=== PATIENT | male | born 1950 | race Hispanic/Latino ===

== ENCOUNTER → 2021-02-20 | Outpatient (CLI) | payer OTHER | END | disposition home or self-care (01) | LOC: RAH 13:51 | PROVIDERS: ATTEND Internal Medicine | DX: I08.0 Rheumatic disorders of both mitral and aortic valves (principal); E78.5 Hyperlipidemia, unspecified; E11.9 Type 2 diabetes mellitus without complications; R55 Syncope and collapse | CPT/HCPCS: 93306; 93356 ==

== ENCOUNTER → 2021-04-21 | Outpatient (CLI) | payer OTHER ==
[~2021-04-21] VITALS: Ht 167.6 cm; Wt 67.1 kg
[~2021-04-21] MED LIST: REGADENOSON 0.4 MG/5 ML PF SYG IVP SCH
== END | disposition home or self-care (01) ==
LOC: SHCH 08:17
PROVIDERS: ATTEND Internal Medicine
DX: I42.9 Cardiomyopathy, unspecified (principal); I45.10 Unspecified right bundle-branch block; R94.31 Abnormal electrocardiogram [ECG] [EKG]
CPT/HCPCS: 78452; 93017; 96374; A9500 ×2; J2785

== ENCOUNTER → 2021-05-25 | Outpatient (CLI) | payer OTHER | END | disposition home or self-care (01) | LOC: RAH 13:41 | PROVIDERS: ATTEND Family Medicine | DX: M47.812 Spondylosis without myelopathy or radiculopathy, cervical region (principal); M25.78 Osteophyte, vertebrae | CPT/HCPCS: 72141 ==

== ENCOUNTER → 2023-01-31 | Outpatient (CLI) | payer OTHER | END | disposition home or self-care (01) | LOC: SHCH 13:36 | PROVIDERS: ATTEND Internal Medicine | DX: I11.9 Hypertensive heart disease without heart failure (principal); I43 Cardiomyopathy in diseases classified elsewhere; E11.9 Type 2 diabetes mellitus without complications | CPT/HCPCS: 93306 ==

== ENCOUNTER → 2023-03-08 | Outpatient (CLI) | payer OTHER ==
[~2023-03-08] MED LIST changes: +ATOR40TA69 PO; +EMPA25TA PO; +FERR-72 PO; +METF-446 PO; +METO-408 PO; -REGADENOSON 0.4 MG/5 ML PF SYG IVP SCH; +SACU1TAB4 PO; +TROS20TA4 PO
== END | disposition home or self-care (01) ==
LOC: RAH 13:23
PROVIDERS: ATTEND Family Medicine
DX: R13.13 Dysphagia, pharyngeal phase (principal)
CPT/HCPCS: 74230; 92611

== ENCOUNTER 2023-03-16 07:20 | Day surgery (SDC) | payer OTHER ==
[2023-03-15 15:36] VITALS: BP 150/74; PULSE 59; RESP 17
[2023-03-15 15:39] LABS: BASOPHILS # (AUTO) 0.03 K/uL (0.00-0.20); BASOPHILS % (AUTO) 0.4 % (0.0-5.0); EOSINOPHILS # (AUTO) 0.19 K/uL (0.00-0.70); EOSINOPHILS % (AUTO) 2.6 % (0.0-8.0); HEMATOCRIT 40.3 % (42-54); IMMATURE GRANULOCYTE ABSOLUTE 0.02 K/uL (0-1); LYMPHOCYTES # (AUTO) 2.3 K/uL (1.0-4.8); LYMPHOCYTES % (AUTO) 31.8 % (21.0-51.0); MEAN CORPUSCULAR HEMOGLOBIN 32.3 pg (27.0-33.0); MEAN CORPUSCULAR HGB CONC 34.7 g/dL (32.0-36.0); MEAN CORPUSCULAR VOLUME 93.1 fL (79-99); MONOCYTES # (AUTO) 0.6 K/uL (0.1-1.0); MONOCYTES % (AUTO) 8.1 % (3.0-13.0); NEUTROPHILS # (AUTO) 4.1 K/uL (1.8-7.7); NEUTROPHILS % (AUTO) 56.8 % (40.0-77.0); PLATELET COUNT (AUTO) 164 K/uL (130-400); RED BLOOD CELL COUNT(AUTO) 4.33 MIL/uL (4.50-6.20); WHITE BLOOD COUNT (AUTO) 7.2 K/uL (4.8-10.8)
[2023-03-15 15:52] LABS: POTASSIUM 4.9 mmol/L (3.5-5.1)
[2023-03-15 15:59] LABS: INR < 0.93 (0.85-1.15); PROTHROMBIN TIME 10.6 SEC (9.6-11.6)
[2023-03-15 16:00] LABS: PARTIAL THROMBOPLASTIN TIME 27.8 SEC (26.3-35.5)
[2023-03-15 16:04] LABS: B-TYPE NATRIURETIC PEPTIDE 72 pg/mL (0-100)
[2023-03-16] VITALS (8 sets, daily range): BP systolic 117–167; BP diastolic 54–84; PULSE 52–60; RESP 14–18
[~2023-03-16] VITALS: Ht 167.6 cm; Wt 68.4 kg
[2023-03-16] MEDS ORDERED: 0.9%NACL 1000ML 1,000 ML IV ONE (08:05)
[2023-03-16] MEDS ORDERED: HEPARIN 10,000 UNIT/10ML (1,000 UNIT/ML) VIAL ONE (09:39)
[2023-03-16] MEDS ORDERED: LIDOCAINE HCL 400MG/20ML VIAL ONE (09:39)
[2023-03-16] MEDS ORDERED: NITROGLYCERIN 50MG/D5W 250ML 1 BOT ONE (09:39)
[2023-03-16] MEDS ORDERED: VERAPAMIL HCL 2.5 MG/ML VIAL ONE (09:39)
[2023-03-16] MEDS ORDERED: IOHEXOL-350 75 ML VIAL IV ONE (09:39)
[2023-03-16] MEDS ORDERED: MIDAZOLAM HCL 1 MG/ML 2ML VIAL ONE (09:50)
[2023-03-16] MEDS ORDERED: FENTANYL CITRATE PF 50 MCG/1 ML 2ML VIAL ONE (09:50)
[2023-03-16] MEDS ORDERED: GLUCAGON 1MG KIT 1 MG ML IM PRN (11:00)
[2023-03-16] MEDS ORDERED: ACETAMINOPHEN WITH CODEINE 1 TAB TAB PO PRN (11:00)
[2023-03-16] MEDS ORDERED: DEXTROSE 50%-WATER 50 ML DISP.SYRIN IV PRN (11:00)
[2023-03-16] MEDS ORDERED: 0.9%NACL 1000ML 1,000 ML IV SCH (11:00)
== END 2023-03-16 13:05 | disposition home or self-care (01) ==
LOC: DAH 07:20
PROVIDERS: ATTEND Internal Medicine
DX: I25.10 Atherosclerotic heart disease of native coronary artery without angina pectoris (principal); I25.82 Chronic total occlusion of coronary artery; I42.8 Other cardiomyopathies; I25.811 Atherosclerosis of native coronary artery of transplanted heart without angina pectoris; I11.0 Hypertensive heart disease with heart failure; I50.22 Chronic systolic (congestive) heart failure; E11.9 Type 2 diabetes mellitus without complications; I45.10 Unspecified right bundle-branch block; I48.91 Unspecified atrial fibrillation; Z79.01 Long term (current) use of anticoagulants; Z79.82 Long term (current) use of aspirin; Z79.899 Other long term (current) drug therapy; Z79.84 Long term (current) use of oral hypoglycemic drugs
CPT/HCPCS: 80048; 83880; 85025; 85610; 85730; 36415; 71045; 93005; 93458; 82948 ×2; C1769; C1894; A4649; J3010; J3490 ×3; J7030; J1644 ×2; J2250; Q9967; A4215; A4222; A4221; A4663; A4216; A4606; A4223 ×3; 96360; 96361; 99156; 99157

== ENCOUNTER 2024-06-23 19:44 | Emergency (ER) | payer OTHER ==
[~2024-06-23] VITALS: Ht 165.1 cm; Wt 66.7 kg
--- NOTE | 2024-06-23 19:55 | NUR ---
FOLLOW UP IN [place] [facility] TO BE AUGUST [id number]
--- NOTE | 2024-06-23 19:58 | ERN ---
General Chief Complaint: Urinary Retention Stated Complaint: URINARY RETENTION Time Seen by MD: 19:48 Source: patient, family History of Present Illness Initial Comments 74-year-old male with a history of prostate cancer who status post radiation therapy and underwent cystoscopy for scar tissue two days ago and has not voided since. This has happened prior times and he has needed to have a Whitmore catheter inserted. Past medical history includes heart disease diabetes hypertension. Timing/Duration: 24 hours Allergies: Coded Allergies: No Known Drug Allergies (Verified Allergy, Unknown, 03/31/21) Home Meds Reported Medications Ferrous Sulfate (Ferrous Sulfate) 325 Mg (65 Mg Iron) Tablet, 325 MG PO DAILY, TAB 1/24 Sacubitril/Valsartan (Entresto 97 mg-103 mg Tablet) 97 Mg-103 Mg Tablet, 1 EACH PO BID, TAB 124 Metformin HCl (Metformin HCl) 1,000 Mg Tablet, 1000 MG PO BID, TAB 124 Atorvastatin Calcium (LIPITOR) 40 Mg Tablet, 40 MG PO DAILY, TAB 124 Empagliflozin (Jardiance) 25 Mg Tablet, 12.5 MG PO DAILY, TAB 24 Metoprolol Succinate (Metoprolol Succinate) 25 Mg Tab.er.24h, 25 MG PO DAILY, TAB 24 Trospium Chloride (Trospium Chloride) 20 Mg Tablet, 20 MG PO HS, TAB 03/15/23 Constitutional: (-) chills, (-) diaphoresis, (-) fever, (-) malaise, (-) weakn ess, (-) other documentation EENTM: (-) eye pain, (-) blurred vision, (-) tearing, (-) double vision, (-) ear pain, (-) ear discharge, (-) nose pain, (-) nose congestion, (-) throat pain, (-) Throat swelling, (-) mouth pain, (-) tooth pain, (-) mouth swelling, (-) other documentation Respiratory: (-) cough, (-) orthopnea, (-) short of breath, (-) stridor, (-) wheezing, (-) other documentation Cardiovascular: (-) chest pain, (-) edema, (-) palpitations, (-) syncope, (-) dyspnea on exertion, (-) other documentation Gastrointestinal/Abdominal: (-) nausea, (-) vomiting, (-) diarrhea, (-) abdominal pain, (-) abdominal distention, (-) constipation, (-) rectal bleeding, (-) dark stool/melena, (-) other documentation Musculoskeletal: (-) Neck pain, (-) back pain, (-) Flank Pain, (-) joint pain, (-) joint swelling, (-) muscle pain, (-) muscle stiffness, (-) gout, (-) other documentation Physical Exam General Appearance: (+) no apparent distress Orientation: (+) alert Head/Face Trauma: No Eye: bilateral eye normal inspection, bilateral eye PERRL, bilateral eye EOMI Ear, Nose, Throat: (+) hearing grossly normal Neck: (+) normal inspection Respiratory: (+) chest non-tender, (+) lungs clear Heart: (+) regular, (+) murmur Vascular: (+) no edema Gastrointestinal Comment Patient has lower abdominal tenderness. MDM We will place a Whitmore catheter and discharge the patient from the ED,. Catheter placement successful with a 14 Fr Cudet releasing 800 cc's clear urine. ED Course Vital Signs Date Time Temp Pulse Resp B/P (MAP) Pulse Ox O2 Delivery O2 Flow Rate FiO2 06/23/24 19:46 97.2 63 18 150/69 99 Room Air DX & DISP Disposition: Discharge Departure Impression: Primary Impression: Urinary (tract) obstruction Condition: Stable Referrals: KIN PEREZ (PCP) TAIWO BUENO MD Jun 23, 2024 19:58
--- NOTE | 2024-06-23 20:30 | NUR ---
PER ED MD, NO URINALYSIS TO BE COLLECTED AT THIS TIME
[2024-06-23 20:57] VITALS: BP 129/64; PULSE 65; RESP 16; TEMP 97.6; O2SAT 98
--- NOTE | 2024-06-23 20:58 | NUR ---
LEG BAG APPLIED, PATIENT AND PATIENT'S SON VERBALIZED UNDERSTANDING OF SUTHERLAND CATHETER CARE
== END 2024-06-23 21:00 | disposition home or self-care (01) ==
LOC: EDH 19:44
DX: N13.9 Obstructive and reflux uropathy, unspecified (principal); E11.9 Type 2 diabetes mellitus without complications; I10 Essential (primary) hypertension; Z79.84 Long term (current) use of oral hypoglycemic drugs; Z79.899 Other long term (current) drug therapy; Z85.46 Personal history of malignant neoplasm of prostate; Z92.3 Personal history of irradiation
CPT/HCPCS: 51702; 99284

== ENCOUNTER 2024-06-26 23:51 | Emergency (ER) | payer OTHER ==
[~2024-06-26] VITALS: Ht 165.1 cm; Wt 67.1 kg
--- NOTE | 2024-06-27 00:15 | NUR ---
PATIENT VOIDED 600 POST CATHETER D/C. POST BLADDER SCAN READS 400ML. PER ED MIDLEVEL REINSERT SUTHERLAND CATHETER.
--- NOTE | 2024-06-27 00:47 | ERN ---
ED Note History of Present Illness Stated Complaint: C/O URINARY RETENTION Chief Complaint: Urinary Retention Time Seen by MD: 23:53 Time Seen by Midlevel: 23:53 Dictation: The patient is a 74-year-old male with a history of prostate cancer, hypertensi on, diabetes status post cystoscopy on Tuesday in [place] who presents to the emergency department with complaints of urinary retention about an hour prior to arrival. Patient reports that he was here Tuesday and had urinary retention which they placed a Whitmore but I now isn't able to void. Patient denies any fevers or any other complaints. Allergies: Coded Allergies: No Known Drug Allergies (Verified Allergy, Unknown, 03/31/21) Home Meds Reported Medications Ferrous Sulfate (Ferrous Sulfate) 325 Mg (65 Mg Iron) Tablet, 325 MG PO DAILY, TAB 1/24 Sacubitril/Valsartan (Entresto 97 mg-103 mg Tablet) 97 Mg-103 Mg Tablet, 1 EACH PO BID, TAB 1/24 Metformin HCl (Metformin HCl) 1,000 Mg Tablet, 1000 MG PO BID, TAB 124 Atorvastatin Calcium (LIPITOR) 40 Mg Tablet, 40 MG PO DAILY, TAB 1/24 Empagliflozin (Jardiance) 25 Mg Tablet, 12.5 MG PO DAILY, TAB 124 Metoprolol Succinate (Metoprolol Succinate) 25 Mg Tab.er.24h, 25 MG PO DAILY, TAB 24 Trospium Chloride (Trospium Chloride) 20 Mg Tablet, 20 MG PO HS, TAB 03/15/23 Past Medical History Past Medical History: Diabetes-Type II, Hypertension Additional Past Medical Hx: RBBB, HEART MURMUR Surgical History: Unknown Surgical History Other: HEART CATH, PROSTATECTOMY RN Note Reviewed/Agreed w/PFSH: Yes Review of System Dictation Constitutional: Negative for fever,chills, and weight loss Eyes: Negative for injury, pain,redness, and discharge ENT: Negative for injury,pain or swelling Cardiovascular: Negative for chest pain, palpitations, and edema Respiratory: Negative for shortness of breath, cough, and wheezing, Abdomen/GI: Negative for abdominal pain, nausea, vomiting, diarrhea, and constipation Back: Negative for injury and pain : Negative for injury, bleeding and discharge positive for urinary retention MS/Extremity: Negative for injury and deformity Skin: Negative for rash, and discoloration Neuro: Negative for headache, weakness, numbness, tingling, and seizure Psych: Negative for suicide ideation, homicidal ideation, and hallucinations Initial Vital Sign VS Vital Signs Date Time Temp Pulse Resp B/P (MAP) Pulse Ox O2 Delivery O2 Flow Rate FiO2 06/26/24 23:55 98.1 61 20 183/78 97 Room Air Physical Exam Dictation Vital Signs reviewed General Appearance: Alert, oriented x 3, no acute distress, well developed, nourished. Head and Face: non-traumatic. Eyes: PERRL, pink conjunctivas, eyelid no trauma, anterior chamber with arcus senilis. Ears: Pinnas intact and no signs of trauma or erythema ear canals clear and no discharge TM no erythema Nose: No discharge, no bleeding. Oropharynx: Mouth normal, tongue pink. pharynx clear,no erythema, tonsils no exudates, no abscesses noted, mucous membrane moist Neck: Supple, non-tender, no thyromegaly, no masses, no JVD, no bruits Breast:Deferred Chest:No tenderness, no crepitus, no paradoxical movement, no retractions Lungs:Clear, well-ventilated, symmetric, no rales, no wheezing, no rhonchi, no stridor, good breath sounds bilaterally Heart: Regular rate, regular rhythm, no murmur, no gallops Vascular: no peripheral edema, Abdomen: Soft, positive bowel sounds, nondistended, no guarding, nontender, no rebound, no masses no hepatomegaly, no splenomegaly, no Parker's sign, no hernias. Rectal: Deferred Genital: Deferred Neurological: Normal speech, motor function intact, sensory function intact Musculoskeletal: Neck nontender, full range of motion, back nontender, full range of motion, Extremities: nontender, full range of motion Skin: Color pink, dry, no turgor, no rash, no lacerations, no abrasions, no contusions. Lymphatic: Deferred ED Course ED Course Vital Signs Date Time Temp Pulse Resp B/P (MAP) Pulse Ox O2 Delivery O2 Flow Rate FiO2 06/26/24 23:55 98.1 61 20 183/78 97 Room Air Medical Decision Making MDM The patient is a 74-year-old male with a history of prostate cancer, hyper tension, diabetes status post cystoscopy on Tuesday in [place] who presents to the emergency department with complaints of urinary retention about an hour prior to arrival. Patient reports that he was here Tuesday and had urinary retention which they placed a Whitmore but I now isn't able to void. Patient denies any fevers or any other complaints. Whitmore was successfully exchanged. Good urine output. Clear yellow urine. Patient reports improving in discomfort after voiding. About a L of urine put out. Patient reports he has an appointment with a his doctor on Tuesday and with a his urologist next month. Patient instructed to follow up and to return if symptoms worsen. Differential diagnosis: Urinary retention, obstructed Whitmore, hematuria Need for hospitalization: Patient does not meet criteria for hospitalization. There are no social concerns with this patient. DX & DISP Disposition: Discharge Departure Impression: Primary Impression: Whitmore catheter problem Additional Impression: Urinary retention Condition: Stable Additional Instructions: Please follow up with your urologist as soon as possible. Follow up with your primary doctor. If symptoms worsen please return to ER. FOLLOW-UP WITH PRIMARY CARE PROVIDER IN 1 TO 2 DAYS. TAKE MEDICATIONS DIRECTED HERE IN THE EMERGENCY ROOM. OKAY TO CONTINUE HOME MEDICATIONS UNLESS OTHERWISE DISCUSSED DURING YOUR VISIT IN THE EMERGENCY ROOM TODAY. RETURN TO YOUR NEAREST EMERGENCY ROOM IF SYMPTOMS WORSEN OR IF THERE IS NO IMPROVEMENT. CALL 911 IF YOU NEED IMMEDIATE ASSISTANCE. TAKE TYLENOL OR MOTRIN [id number] NEEDED AND IF NO CONTRAINDICATIONS ARE PRESENT. INCREASE ORAL HYDRATION. A WOUND CULTURE OR URINE CULTURE WAS ORDERED HERE IN THE EMERGE [facility] ROOM DEPARTMENT PLEASE FOLLOW-UP WITH PRIMARY CARE PROVIDER AND ADVISE THEM TO GET REPEAT PORTS FROM OUR FACILITY. IF YOU HAD ANY ANGI WRAP/SPLINTS THAT WERE APPLIED HERE, PLEASE DO NOT REMOVE THEM UNTIL YOU SEE YOUR PRIMARY CARE OR SPECIALTY. Referrals: KIN PEREZ (PCP) JONNATHAN RAE MD Time of Disposition: 00:46 I have reviewed the case, and I agree with, Diagnosis and Plan NILES BETANCOURT Jun 27, 2024 00:47
[2024-06-27 01:06] VITALS: BP 169/83; PULSE 83; RESP 19; TEMP 98.2; O2SAT 99
== END 2024-06-27 01:07 | disposition home or self-care (01) ==
LOC: EDH 23:51
DX: T83.9XXA Unspecified complication of genitourinary prosthetic device, implant and graft, initial encounter (principal); E11.9 Type 2 diabetes mellitus without complications; I10 Essential (primary) hypertension; Z79.84 Long term (current) use of oral hypoglycemic drugs; Z79.899 Other long term (current) drug therapy; Z90.79 Acquired absence of other genital organ(s); Y82.8 Other medical devices associated with adverse incidents; Y92.89 Other specified places as the place of occurrence of the external cause
CPT/HCPCS: 51702; 99284

== ENCOUNTER 2024-07-14 14:59 | Inpatient (IN) | payer OTHER ==
[~2024-07-14] VITALS: Ht 167.6 cm; Wt 64.4 kg
[~2024-07-14 14:59] MED LIST changes: +BUPR-113 PO; -FERR-72 PO; -METF-446 PO; +METO-391 PO; -METO-408 PO; -TROS20TA4 PO
--- NOTE | 2024-07-14 15:20 | NUR ---
BLADDER SCAN REFLECTS 382 URINE RETAINED
--- NOTE | 2024-07-14 15:24 | NUR ---
FC TO BE CHANGED PER MD PEARSON FOR URINARY RETENTION
--- NOTE | 2024-07-14 15:39 | NUR ---
PREPARING TO REMOVE FC POA DEFLATING BALLON CATH BEGAN TO DRAIN AND 500 CC BLOODY URINE WAS RELEASED FC NOT REMOVED AND NOTIFIED
--- NOTE | 2024-07-14 15:40 | NUR ---
FC FOND UNSECURED AND PULLED TIGHT POSSIBLY CONSTRICTING FLOW
[2024-07-14] MEDS: LIDOCAINE HCL 2% VISCOUS 15 ML UDCUP ONE (17:04)
[2024-07-14] MEDS: LIDOCAINE HCL 2% VISCOUS 15 ML UDCUP PO ONE (17:04)
[2024-07-14] MEDS: tamSULOsin HCL 0.4 MG CAP.ER.24H PO ONE (17:04)
--- NOTE | 2024-07-14 17:21 | ERN ---
General Chief Complaint: Urinary Catheter Problems Stated Complaint: CLOGGED SUTHERLAND CATHETER Time Seen by MD: 15:04 Source: patient History of Present Illness Initial Comments Patient is a 74-year-old male coming in to be evaluated for Sutherland catheter pr oblems. Per family member and patient patient had a Sutherland catheter placed due to hematuria. Patient states that he did not noticed it flow anymore so he was four here for further evaluation. Allergies: Coded Allergies: No Known Drug Allergies (Verified Allergy, Unknown, 03/31/21) Home Meds Reported Medications Sacubitril/Valsartan (Entresto 97 mg-103 mg Tablet) 97 Mg-103 Mg Tablet, 1 TAB PO DAILY for 30 Days, #60 TAB 0 Refills 07/08/24 Bupropion HCl (Bupropion HCl Sr) 150 Mg Tablet.er, 1 TAB PO DAILY for 30 Days, #60 TAB 0 Refills 07/08/24 Metoprolol Succinate (Metoprolol Succinate) 50 Mg Tab.er.24h, 1 TAB PO DAILY for 30 Days, #30 TAB 0 Refills 07/08/24 Atorvastatin Calcium (LIPITOR) 40 Mg Tablet, 0.5 TAB PO HS for 30 Days, #30 TAB 0 Refills 07/08/24 Empagliflozin (Jardiance) 25 Mg Tablet, 1 TAB PO DAILY for 30 Days, #30 TAB 0 Refills 07/08/24 Discontinued Reported Medications Ciprofloxacin HCl (Cipro) 250 Mg Tablet, 100 MG PO BID, TAB 07/06/24 Sacubitril/Valsartan (Entresto 97 mg-103 mg Tablet) 97 Mg-103 Mg Tablet, 1 EACH PO DAILY, TAB 06/30/24 Bupropion HCl (Bupropion HCl Sr) 150 Mg Tablet.er, 1 TAB PO DAILY for 30 Days, #30 TAB 0 Refills 06/30/24 Atorvastatin Calcium (Atorvastatin Calcium) 40 Mg Tablet, 0.5 TAB PO HS for 30 Days, #30 TAB 0 Refills 06/30/24 Discontinued Scripts Aminocaproic Acid (Amicar) 1,000 Mg Tablet, 500 MG PO QID for 30 Days, #60 TAB Prov:DEANA ENRIQUEZ MD 07/03/24 Past Medical History Past Medical History: Other Medical History Other: BPH, PROSTATE CA, SKIN CA Past Surgical History: Unknown Surgical History Other: HEART CATH, PROSTATECTOMY ROS Dictation CONSTITUTIONAL: No chills, no fever, no weakness, no diaphoresis, no malaise. HEAD/FACE: No signs of trauma. EENT: No eye pain, no blurred vision, no tearing, no double vision, no ear pain, no ear discharge, no nose pain, no nasal congestion, no throat pain, no throat swelling, no mouth pain. RESPIRATORY: No cough, no orthopnea, no SOB, no stridor, no wheezing. CARDIOVASCULAR: No chest pain, no edema, no palpitations, no syncope. GASTROINTESTINAL/ABDOMINAL: No abdominal pain, no constipation, no diarrhea, no nausea, no vomiting. GENITOURINARY: No abnormal discharge, no dysuria, no frequent urination, no hematuria. No complaints of pain in the genitals. MUSCULOSKELETAL: No back pain, no gout, no joint pain, no joint swelling, no muscle pain, no muscle stiffness, no neck pain. INTEGUMENTARY: No change in color, no change in hair/nails, no dryness, no lesion, no lumps, no rash. NEUROLOGICAL/PSYCH: No anxiety, not depressed, no emotional problem, no headache, no numbness, no pre-existing deficit, no history of seizures, no tremors, no weakness. HEMATOLOGIC/LYMPHATIC: Not anemic, no history of blood clots, no apparent bleeding, no bruising, glands not swollen. All Systems Negative, Except as Noted. Physical Exam Physical Exam Dictation VITAL SIGNS: Reviewed. GENERAL APPEARANCE: Alert, oriented x3, no acute distress, obese. HEAD AND FACE: Non-traumatic. EYES: PERRL, pink conjunctivas, eyelid no trauma, anterior chamber clear. EARS: Pinnas intact and no signs of trauma or erythema. Ear canals clear and no discharge. TMs no erythema. NOSE: No discharge, no bleeding. OROPHARYNX: Mouth normal, teeth no caries, tongue pink. Pharynx clear, no erythema. Tonsils no exudates, no abscesses noted. Mucous membrane moist. NECK: Supple, non-tender, no thyromegaly, no masses, no JVD, no bruits. BREAST: Deferred. CHEST: No tenderness, no crepitus, no paradoxical movement, no retractions. LUNGS: Clear, well-ventilated, symmetric, no rales, no wheezing, no rhonchi, no stridor, good breath sounds bilaterally. HEART: Regular rate, regular rhythm, no murmur, no gallops. VASCULAR: No peripheral edema. ABDOMEN: Soft, positive bowel sounds, nondistended, no guarding, nontender, no rebound, no masses no hepatomegaly, no splenomegaly, no Parker's sign, no hernias. RECTAL: Deferred. GENITAL: Sutherland catheter in place limited urine output NEUROLOGICAL: Normal speech, gross motor function intact, gross sensory functi on intact. MUSCULOSKELETAL: Neck nontender, full range of motion, back nontender, full range of motion. EXTREMITIES: Nontender, full range of motion. SKIN: Color pink, dry, no turgor, no rash, no lacerations, no abrasions, no contusions. LYMPHATICS: Deferred. Results Laboratory and Microbiology Lab and Micro Result Laboratory Tests Test 07/14/24 17:03 07/14/24 19:59 Urine Color LIGHT-YELLOW (YELLOW) Urine Appearance CLEAR (CLEAR) Urine pH 6.0 (5.0-8.0) Urine Specific Champion 1.010 (1.001-1.031) Urine Protein NEGATIVE mg/dL (NEGATIVE) Urine Glucose (UA) TRACE mg/dL (NEGATIVE) H Urine Ketones NEGATIVE mg/dL (NEGATIVE) Urine Occult Blood NEGATIVE (NEGATIVE) Urine Nitrate NEGATIVE (NEGATIVE) Urine Bilirubin NEGATIVE mg/dL (NEGATIVE) Urine Urobilinogen 2.0 mg/dL (0.2-1.0) H Urine Leukocyte Esterase NEGATIVE Zhou/uL Urine RBC 2-5 /HPF (0-1) H Urine WBC 2-5 /HPF (0-1) H Urine Squamous Epithelial Cells RARE /HPF (0-2) Urine Bacteria None /HPF (None Seen) White Blood Count 11.5 K/uL (4.8-10.8) H Red Blood Count 3.66 MIL/uL (4.50-6.20) L Hemoglobin 11.6 g/dL (14.0-18.0) L Hematocrit 33.7 % (42-54) L Mean Corpuscular Volume 92.1 fL (79-99) Mean Corpuscular Hemoglobin 31.7 pg (27.0-33.0) Mean Corpuscular Hemoglobin Concent 34.4 g/dL (32.0-36.0) Red Cell Distribution Width 12.5 % (11.0-15.5) Platelet Count 226 K/uL (130-400) Mean Platelet Volume 9.4 fL (7.5-10.5) Immature Granulocyte % (Auto) 0.3 % (0-1) Neutrophils (%) (Auto) 80.9 % (40.0-77.0) H Lymphocytes (%) (Auto) 11.7 % (21.0-51.0) L Monocytes (%) (Auto) 5.8 % (3.0-13.0) Eosinophils (%) (Auto) 1.0 % (0.0-8.0) Basophils (%) (Auto) 0.3 % (0.0-5.0) Neutrophils # (Auto) 9.3 K/uL (1.8-7.7) H Lymphocytes # (Auto) 1.4 K/uL (1.0-4.8) Monocytes # (Auto) 0.7 K/uL (0.1-1.0) Eosinophils # (Auto) 0.11 K/uL (0.00-0.70) Basophils # (Auto) 0.03 K/uL (0.00-0.20) Absolute Immature Granulocyte (auto 0.04 K/uL (0-1) Nucleated Red Blood Cells 0.0 % (0.0-0.19) Sodium Level 136 mmol/L (136-145) Potassium Level 3.5 mmol/L (3.5-5.1) Chloride Level 100 mmol/L (101-111) L Carbon Dioxide Level 27 mmol/L (21-32) Blood Urea Nitrogen 12 mg/dL (7-18) Creatinine 1.1 mg/dL (0.5-1.3) Glomerular Filtration Rate Calc 70 mL/min (>90) Random Glucose 158 mg/dL (70-105) H Total Calcium 8.8 mg/dL (8.5-10.1) Labs Reviewed?: Yes MDM MDM: Differential diagnosis: Sutherland catheter problem, three way problem, Rationale: Tests considered and ordered secondary to shared decision making include: Previous outside records reviewed: Old ER visits. Risk of complication and/or morbidity or mortality of patient management: None Patient is a 74-year-old male coming in to be evaluated for Sutherland catheter problem. Sutherland catheter was not flowing was removed and replaced good urine flow was accomplished. Patient will be discharged in stable condition with a diagnosis of Sutherland catheter problem. CT scan shows the base of the Sutherland balloon near the urethral prostatic junction. The bladder is full of clot and is distended with urine as well. I discussed the patient with urology and they have agreed to admit him 1st cleaning out in the morning the hospitalists have graciously accepted the patient onto their service. ED Course Orders Procedure Category Date Status Time Tamsulosin Hcl PHA 07/14/24 Complete (Flomax) 16:30 Lidocaine Hcl 2% PHA 07/14/24 Complete Viscous (Lidocaine Hcl 16:30 Lidocaine Hcl 2% PHA 07/14/24 Complete Viscous (Lidocaine Hcl 16:28 Urinalysis Profile LAB 07/14/24 Complete 17:02 Ct Abdomen/Pelvis W/O CT 07/14/24 Resulted Contrast 17:45 Morphine 2mg Syg PHA 07/14/24 Complete (Morphine 2mg Syg) 18:30 Morphine 2mg Syg PHA 07/14/24 Complete (Morphine 2mg Syg) 18:18 Cbc With Differential LAB 07/14/24 Complete 19:07 Basic Metabolic Panel LAB 07/14/24 Complete 19:07 Fentanyl Citrate Pf PHA 07/14/24 Complete 0.05 Mg/Ml (Fentanyl 20:30 Current Medications Medications (Trade) Dose Ordered Sig/Jacy Route PRN Reason Start Time Stop Time Status Last Admin Dose Admin Fentanyl Citrate (FENTanyl CITRate PF 50 MCG/ 1 ML 2ML VIAL) 50 mcg ONCE ONCE IVP 07/14/24 20:30 07/14/24 20:31 DC 07/14/24 20:25 Lidocaine HCl (Lidocaine HCl 2% Viscous) 10 ml ONCE ONCE PO 07/14/24 16:30 07/14/24 16:31 DC 07/14/24 17:04 Lidocaine HCl (Lidocaine HCl 2% Viscous) 15 ml STK-MED ONCE .ROUTE 07/14/24 16:28 07/14/24 16:28 DC Morphine Sulfate (morPHINE 2MG SYG) 2 mg ONCE ONCE IM 07/14/24 18:30 07/14/24 18:31 DC 07/14/24 19:30 Morphine Sulfate (morPHINE 2MG SYG) 2 mg STK-MED ONCE .ROUTE 07/14/24 18:18 07/14/24 18:18 DC Tamsulosin HCl (FloMAX) 0.8 mg ONCE ONCE PO 07/14/24 16:30 07/14/24 16:31 DC 07/14/24 17:04 Vital Signs Date Time Temp Pulse Resp B/P (MAP) Pulse Ox O2 Delivery O2 Flow Rate FiO2 07/14/24 15:19 99.0 75 20 165/90 98 Room Air* 0 21 07/14/24 15:02 99.1 74 20 163/91 98 Room Air 0 DX & DISP Disposition: Inpatient Departure Impression: Primary Impression: Sutherland catheter problem Additional Impressions: Recurrent gross hematuria, Urinary retention, Malfunction of Sutherland catheter Condition: Stable Referrals: KIN PEREZ (PCP) HANS PEARSON MD July 14, 2024 17:21 TAIWO BUENO MD July 14, 2024 21:16
[2024-07-14 17:29] LABS: APPEARANCE,URINE CLEAR (CLEAR); BILIRUBIN,URINE NEGATIVE (NEGATIVE); COLOR,URINE LIGHT-YELLOW (YELLOW); GLUCOSE, URINE (UA) TRACE mg/dL (NEGATIVE); KETONES,URINE NEGATIVE (NEGATIVE); LEUKOCYTE ESTERASE ,URINE NEGATIVE Leu/uL (NEGATIVE); NITRATE,URINE NEGATIVE (NEGATIVE); OCCULT BLOOD,URINE NEGATIVE (NEGATIVE); PROTEIN,URINE NEGATIVE (NEGATIVE)
[2024-07-14 17:38] LABS: ADD UA MICROSCOPIC YES
[2024-07-14 18:11] LABS: MUCUS,URINE RARE LPF (None Seen); SQUAMOUS EPITHELIAL CELL,UR RARE /HPF (0-2)
--- NOTE | 2024-07-14 18:37 | NUR ---
CHARTED ON THE WRONG PT FOR ABNORMAL TROPONIN. CRITICAL RESULT UNDONE.
--- NOTE | 2024-07-14 19:18 | HMCIMG ---
CT ABDOMEN/PELVIS W/O CONTRAST CLINICAL HISTORY: suprapubic pain/ hematuria COMPARISON: 07/02/2024 TECHNIQUE: Sequential axial images of abdomen and pelvis without contrast and with sagittal and coronal reconstructions. CT was performed with one or more of the following dose reduction techniques: automated exposure control, adjustment of the mA and/or kV according to patient size, or use of iterative reconstruction technique FINDINGS: The lung bases are clear. The liver and spleen are unremarkable. The gallbladder is remarkable for calculi but no acute inflammatory changes. The pancreas and adrenal glands are within normal limits. Note is made of minimal bilateral hydroureteronephrosis as well as a dilated urinary bladder with air-fluid level and a large amount of likely clot demonstrated in the bladder. On the prior examination the Whitmore catheter was demonstrated to be inflated within the prostate gland which no longer appears to be the case. There is also small air bubble demonstrated within the bladder. There is no free air or free fluid. Note is made of stable degenerative changes of the spine. IMPRESSION: There is a large amount of likely clot demonstrated within the bladder. The bladder is also grossly distended with minimal bilateral hydroureteronephrosis. Prior examination the Whitmore catheter. We inflated within the prostate gland. The clot appears to surround the existing Whitmore catheter in the bladder likely making drainage difficult. Recommend correlation for Whitmore bladder function.
[2024-07-14] MEDS: morPHINE 2 MG SYG IM ONE (19:30)
[2024-07-14] MEDS: morPHINE 2 MG SYG ONE (19:31)
[2024-07-14 20:03] LABS: BASOPHILS # (AUTO) 0.03 K/uL (0.00-0.20); BASOPHILS % (AUTO) 0.3 % (0.0-5.0); EOSINOPHILS # (AUTO) 0.11 K/uL (0.00-0.70); HEMATOCRIT 33.7 % (42-54); IMMATURE GRANULOCYTE ABSOLUTE 0.04 K/uL (0-1); LYMPHOCYTES # (AUTO) 1.4 K/uL (1.0-4.8); LYMPHOCYTES % (AUTO) 11.7 % (21.0-51.0); MEAN CORPUSCULAR HEMOGLOBIN 31.7 pg (27.0-33.0); MEAN CORPUSCULAR HGB CONC 34.4 g/dL (32.0-36.0); MEAN CORPUSCULAR VOLUME 92.1 fL (79-99); MONOCYTES # (AUTO) 0.7 K/uL (0.1-1.0); MONOCYTES % (AUTO) 5.8 % (3.0-13.0); NEUTROPHILS # (AUTO) 9.3 K/uL (1.8-7.7); NEUTROPHILS % (AUTO) 80.9 % (40.0-77.0); PLATELET COUNT (AUTO) 226 K/uL (130-400); RED BLOOD CELL COUNT(AUTO) 3.66 MIL/uL (4.50-6.20); RED CELL DISTRIBUTION WIDTH 12.5 % (11.0-15.5); WHITE BLOOD COUNT (AUTO) 11.5 K/uL (4.8-10.8)
[2024-07-14 20:14] LABS: CREATININE 1.1 mg/dL (0.5-1.3); POTASSIUM 3.5 mmol/L (3.5-5.1)
[2024-07-14] MEDS: FENTanyl CITRate PF 50 MCG/1 ML 2ML VIAL IVP ONE (20:25)
--- NOTE | 2024-07-14 21:18 | HP ---
History of Present Illness Reason for Visit: henry catheter problems History of Present Illness Mr. Benjamin is a 74-year-old male that was seen and examined today on 07/14/2024. Patient is a good historian of personal health Patient states that he came to the emergency department because his Henry catheter was not draining. Patient has been having problems with the Henry catheter since 06/22/2024 after being discharged status post bladder surgery. Duration is on and off. Character is described as node output from the Henry catheter. There was no alleviating factors. There was no aggravating factors. Today in the emergency department CBC unremarkable, glucose 150 mg/dL, urinalysis unremarkable, CT of abdomen and pelvis shows large amount of likely clots demonstrated in the bladder, bladder grossly distended, mild bilateral h ydroureteronephrosis. Emergency room physician contacted urologist on-call Dr. Watson who requested patient be admitted under hospitalist service. Past Medical History Patient History: Carcinomas MOTHER, , Cause: Breast cancer Diabetes mellitus FATHER, , Cause: Heart attack ADDITIONAL PAST MEDICAL HISTORY: [Diabetes mellitius type2, hypertension, prostate cancer] SOCIAL HISTORY: [Negative for smoking, alcohol use, drug use. Patient lives with his Jolanta Iraheta. Patient is typically independent of his ADLs. Patient denies difficulty pain is bills. Patient has good access to health care through his insurance.] SURGICAL HISTORY: [Prostatectomy,] Review of Systems General: No Fever, No Chills, No Night Sweats, No Fatigue, No Malaise, No Appetite, No Other HEENT: No Head Aches, No Visual Changes, No Eye Pain, No Ear Pain, No Dysphasia, No Sinus Congestion, No Post Nasal Drip, No Sore Throat, No Other Pulmonary: No Dyspnea, No Cough, No Pleuritic Chest Pain, No Other Cardiovascular: No: Chest Pain, Palpitations, Orthopnea, Paroxysmal Noc. Dyspnea, Edema, Lt Headedness, Other Gastrointestinal: No: Nausea, Vomiting, Abdominal Pain, Diarrhea, Constipation, Melena, Hematochezia, Other Genitourinary: No Dysuria, No Frequency, No Incontinence, No Hematuria; Retention; No Other Musculoskeletal: No: other, neck pain, shoulder pain, arm pain, back pain, hand pain, leg pain, foot pain Skin: No Urticaria, No Rash, No Other Neurological: No: Weakness, Numbness, Incoordination, Change in speech, Confusion, Seizures, Other Allergies: Coded Allergies: No Known Drug Allergies (Verified Allergy, Unknown, 03/31/21) Scheduled Atorvastatin Calcium (Lipitor), 0.5 TAB PO HS, (Reported) Bupropion HCl (Bupropion HCl Sr), 1 TAB PO DAILY, (Reported) Empagliflozin (Jardiance), 1 TAB PO DAILY, (Reported) Metoprolol Succinate (Metoprolol Succinate), 1 TAB PO DAILY, (Reported) Sacubitril/Valsartan (Entresto 97 mg-103 mg Tablet), 1 TAB PO DAILY, (Reported) Discontinued Medications Aminocaproic Acid (Amicar), 500 MG PO QID Atorvastatin Calcium (Atorvastatin Calcium), 0.5 TAB PO HS, (Reported) Bupropion HCl (Bupropion HCl Sr), 1 TAB PO DAILY, (Reported) Ciprofloxacin HCl (Cipro), 100 MG PO BID, (Reported) Sacubitril/Valsartan (Entresto 97 mg-103 mg Tablet), 1 EACH PO DAILY, (Reported) Exam Vital Signs Vital Signs Date Time Temp Pulse Resp B/P (MAP) Pulse Ox O2 Delivery O2 Flow Rate FiO2 07/14/24 15:19 99.0 75 20 165/90 98 Room Air* 0 21 General Appearance: Alert, Oriented X3, Cooperative, No acute distress HEENT: Atraumatic, EOMI Respiratory: Clear to auscultation, Normal air movement, NL respiratory effort Cardiovascular: Regular rate, Regular rhythm, Normal S1, Normal S2 Abdominal: Normal bowel sounds, Soft, No tenderness Extremities: No edema Skin: No significant lesion Neuro: Normal speech, Strength at 5/5 X4 ext, Sensation intact, Cranial nerves 3-12 NL Psych/Mental Status: Mental status NL, Mood NL, Thoughts/Content NL Additional PE Genitourinary: Henry catheter present Assessment/Plan ASSESSMENT: [ Henry catheter complications, POA Mild bilateral hydroureteronephrosis, POA Diabetes mellitius type2, POA History of prostate cancer PLAN: [ Admit patient to medical floor as inpatient status. Patient will be followed by urology service. Keep patient NPO Check preprocedure labs, CBC, BMP, magnesium, phosphorus, PTT, UA, type and screen, EKG, CXR As needed analgesia with morphine As-needed antiemetic Zofran Henry catheter care per nursing routine Check hemoglobin A1c in a.m. Glucometer checks a.c. and HS 1800 ADA diet Humulin R sliding scale GI prophylaxis, famotidine DVT prophylaxis, Kareem's and SCDs ADVANCED CARE PLANNING 1. Which of the following were discussed? Hospice Care - Yes Therapeutic options - Yes Advance Directives - Yes-patient states he does not have any advance directives in place at this time, however his can make decisions for him if he becomes unable. Other discussions - patient wishes to remain a full code at this time 2. Discussed with who? Patient 3. Voluntary nature of this service was explained to the patient? Yes 4. Amount of time spent - __ 16 minutes 5. Reviewed by Physician? (if this service was performed by NPP) Yes This document was generated in part using voice recognition software, occasional wrong word or sound alike substitutions may have occurred due to the inherent limitations of voice recognition software. Read the chart carefully and recognize using context, where the substitutions have occurred. Although every effort was made to edit the content, food production machine operator and typing errors may occur ATTESTATION BY PHYSICIAN I have seen and examined the patient. I reviewed the documentation, medical decision making, and treatment plan as noted by the mid-level provider above. I agree with the findings and plan of care. GAMALIEL COLE CATERING OPERATIONS MANAGER July 14, 2024 21:18
[2024-07-14] MEDS: CYCLOBENZAPRINE HCL 10 MG TABLET PO ONE (21:28)
[2024-07-14] MEDS: hydroMORPHone 2 MG VIAL (2MG/ML) IVP ONE (21:28)
--- NOTE | 2024-07-14 21:47 | NUR ---
CBI STARTED PER DR PEARSON 2200 IN TOTAL OUTPUT 1006
--- NOTE | 2024-07-14 22:04 | NUR ---
CBI ATOPPED IN THE ER DUE TO ONGOING CLOTTING ISSUES AND PAIN ONGOING WITH PT ER MD NOTIFIED AND UROLOGY CONSULT COMPLETED UROLOGY TO ASSES PT IN THE AM
[2024-07-14 22:20] VITALS: BP 126/68; PULSE 70; RESP 18; TEMP 98
[2024-07-14 22:30] VITALS: O2SAT 96
[2024-07-14] MEDS ORDERED: ondanSETRON 4MG INJ IVP PRN (23:30)
--- NOTE | 2024-07-14 23:30 | HMCIMG ---
CHEST 1VW HISTORY: Preprocedure COMPARISON: 03/15/2023 FINDINGS: A frontal projection of the chest was obtained. No acute pulmonary infiltrates is seen. The heart is borderline enlarged. Degenerative changes are seen. Aortic calcifications are seen. IMPRESSION: 1. No acute pulmonary infiltrate is seen.
[2024-07-15] VITALS (28 sets, daily range): BP systolic 101–132; BP diastolic 37–71; PULSE 69–84; RESP 15–20; TEMP 97.3–98.6; O2SAT 96–100
[2024-07-15] MEDS ORDERED: ondanSETRON 4MG INJ IV PRN (00:30)
[2024-07-15] MEDS ORDERED: acetaMINOPHEN 325 MG TAB PO PRN (00:30)
[2024-07-15] MEDS: LACTATED RINGERS 1000ML 1,000 ML IV SCH (01:04)
[2024-07-15 06:51] LABS: BASOPHILS # (AUTO) 0.02 K/uL (0.00-0.20); BASOPHILS % (AUTO) 0.2 % (0.0-5.0); EOSINOPHILS % (AUTO) 0.9 % (0.0-8.0); HEMATOCRIT 29.7 % (42-54); IMMATURE GRANULOCYTE ABSOLUTE 0.06 K/uL (0-1); LYMPHOCYTES # (AUTO) 1.6 K/uL (1.0-4.8); LYMPHOCYTES % (AUTO) 14.8 % (21.0-51.0); MEAN CORPUSCULAR HEMOGLOBIN 31.7 pg (27.0-33.0); MEAN CORPUSCULAR VOLUME 93.1 fL (79-99); MONOCYTES # (AUTO) 0.9 K/uL (0.1-1.0); MONOCYTES % (AUTO) 7.9 % (3.0-13.0); NEUTROPHILS # (AUTO) 8.3 K/uL (1.8-7.7); NEUTROPHILS % (AUTO) 75.7 % (40.0-77.0); PLATELET COUNT (AUTO) 207 K/uL (130-400); RED BLOOD CELL COUNT(AUTO) 3.19 MIL/uL (4.50-6.20); RED CELL DISTRIBUTION WIDTH 12.8 % (11.0-15.5)
[2024-07-15 07:04] LABS: INR 1.03 (0.85-1.15); PROTHROMBIN TIME 10.9 SEC (9.6-11.6)
[2024-07-15 07:05] LABS: PARTIAL THROMBOPLASTIN TIME 29.1 SEC (26.3-35.5)
[2024-07-15 07:09] LABS: CREATININE 1.3 mg/dL (0.5-1.3); MAGNESIUM 1.7 mg/dL (1.80-2.40); PHOSPHORUS 4.7 mg/dL (2.5-4.9); POTASSIUM 4.3 mmol/L (3.5-5.1)
[2024-07-15] MEDS: FAMOTIDINE 20MG VIAL IV SCH (10:18)
[2024-07-15] MEDS: MAGNESIUM 2GM PREMIX 50ML 50 ML IV SCH (11:24)
[2024-07-15] MEDS: morPHINE 2 MG SYG IVP PRN (12:25)
--- NOTE | 2024-07-15 13:17 | PN ---
[facility] PROGRESS NOTE Date of Service: July 15, 2024 Time of Service: 13:15 SUBJECTIVE: [ ] 07/15/24 patient was seen and examined. Case discussed with the RN. He was having trouble with Whitmore not draining urine due to possibly retained clot obstructing. He was not able to tolerate any irrigation. I called and discussed with Dr. Watson. He will be coming in to evaluate the patient to soon as he can. Meanwhile he said it is okay to give pain medications I will he was some morphine and Dilaudid and await urological intervention REVIEW OF SYSTEMS CONSTITUTIONAL: Denies fevers, chills, or night sweats. No unintentional weight loss reported. NEUROLOGICAL: Denies headache, amaurosis fugax, motor weakness, sensory deficit, vertigo/spinning sensation, gait abnormalities, or tremors. ENT: No hearing loss, otalgia, otorrhea, rhinitis, rhinorrhea, hoarseness, or sore throat. CARDIOVASCULAR: Denies any exertional angina, dyspnea on exertion, orthopnea, paroxysmal nocturnal dyspnea, palpitations, life-threatening arrhythmias, cl audication. PULMONARY: Denies any shortness of breath, cough, phlegm/sputum, hemoptysis, pleuritic chest pain. SLEEP: Denies morning headaches, daytime somnolence or napping. Denies difficulty falling asleep, staying asleep, waking from sleep. Denies knowledge of snoring. GASTROINTESTINAL: Denies any type of dysphagia to either liquids or solids. Denies nausea, vomiting, pyrosis, early satiety, abdominal pain, diarrhea, const ipation, or changes in stool consistency or caliber. Denies coffee-ground emesis, hematemesis, hematochezia, or melanotic stools. GENITOURINARY: Denies frequency, urgency, nocturia, hematuria or incontinence (Storage/Irritative symptoms.) Low urinary stream, straining to void, urinary intermittency or hesitancy, splitting of the voiding stream, terminal dribbling. ENDOCRINOLOGIC: Denies polyuria, polydipsia, polyphagia or heat/cold intolerances. HEMATOLOGIC: Denies thrombophilia/previous clots, or coagulopathy/bleeding disorders. ONCOLOGIC: Denies personal history of malignancy. DERMATOLOGIC: Denies rashes or pruritus. PSYCHIATRIC: Denies any suicidal or homicidal ideation. Denies hallucinations. PHYSICAL EXAM GENERAL APPEARANCE: The patient is awake, alert, and oriented, in no acute cardiopulmonary distress. NEUROLOGICAL: Cranial nerves II-XII grossly intact. Motor is 5/5 in bilateral upper and lower extremities proximal to distal. No sensory deficits. HEENT: Face is symmetric. Pupils are equal and reactive. Extraocular movements are intact. NECK: Supple. No JVD. No thyromegaly. No submental, submandibular, pre- /postauricular, occipital or supraclavicular lymphadenopathy. CHEST: Normal chest expansion. No Telemetry. LUNGS: Absence of any rales, rhonchi or any wheezing. CARDIOVASCULAR: Regular. S1 and S2 normal. No appreciable rubs, murmurs or gallops. ABDOMEN: Soft, nontender, and nondistended. There is no rebound, voluntary guarding, or rigidity. : Deferred. No Whitmore. EXTREMITIES: Non-edematous and not cyanotic. No clubbing. Good capillary refill. SKIN: No skin breakdown. Vital Signs (last 8hr) Date Time Temp Pulse Resp B/P (MAP) Pulse Ox O2 Delivery O2 Flow Rate FiO2 07/15/24 12:00 97.9 73 19 120/57 96 Room Air 07/15/24 07:58 98.4 74 18 131/64 96 Room Air LABS: Laboratory: Test 07/15/24 11:01 07/15/24 06:33 07/14/24 17:03 Range/Units Whole Blood Glucose 130 H 70-110 MG/DL White Blood Count 11.0 H 4.8-10.8 K/uL Red Blood Count 3.19 L 4.50-6.20 MIL/uL Hemoglobin 10.1 L 14.0-18.0 g/dL Hematocrit 29.7 L 42-54 % Mean Corpuscular Volume 93.1 79-99 fL Mean Corpuscular Hemoglobin 31.7 27.0-33.0 pg Mean Corpuscular Hemoglobin Concent 34.0 32.0-36.0 g/dL Red Cell Distribution Width 12.8 11.0-15.5 % Platelet Count 207 130-400 K/uL Mean Platelet Volume 9.8 7.5-10.5 fL Immature Granulocyte % (Auto) 0.5 0-1 % Neutrophils (%) (Auto) 75.7 40.0-77.0 % Lymphocytes (%) (Auto) 14.8 L 21.0-51.0 % Monocytes (%) (Auto) 7.9 3.0-13.0 % Eosinophils (%) (Auto) 0.9 0.0-8.0 % Basophils (%) (Auto) 0.2 0.0-5.0 % Neutrophils # (Auto) 8.3 H 1.8-7.7 K/uL Lymphocytes # (Auto) 1.6 1.0-4.8 K/uL Monocytes # (Auto) 0.9 0.1-1.0 K/uL Eosinophils # (Auto) 0.10 0.00-0.70 K/uL Basophils # (Auto) 0.02 0.00-0.20 K/uL Absolute Immature Granulocyte (auto 0.06 0-1 K/uL Nucleated Red Blood Cells 0.0 0.0-0.19 % Prothrombin Time 10.9 9.6-11.6 SEC Prothromb Time International Ratio 1.03 0.85-1.15 Activated Partial Thromboplast Time 29.1 26.3-35.5 SEC Sodium Level 135 L 136-145 mmol/L Potassium Level 4.3 3.5-5.1 mmol/L Chloride Level 100 L 101-111 mmol/L Carbon Dioxide Level 24 21-32 mmol/L Blood Urea Nitrogen 16 7-18 mg/dL Creatinine 1.3 0.5-1.3 mg/dL Glomerular Filtration Rate Calc 57 >90 mL/min Random Glucose 158 H 70-105 mg/dL Total Calcium 8.7 8.5-10.1 mg/dL Phosphorus Level 4.7 2.5-4.9 mg/dL Magnesium Level 1.70 L 1.80-2.40 mg/dL Urine Color LIGHT-YELLOW YELLOW Urine Appearance CLEAR CLEAR Urine pH 6.0 5.0-8.0 Urine Specific [place] 1.010 1.001-1.031 Urine Protein NEGATIVE NEGATIVE mg/dL Urine Glucose (UA) TRACE H NEGATIVE mg/dL Urine Ketones NEGATIVE NEGATIVE mg/dL Urine Occult Blood NEGATIVE NEGATIVE Urine Nitrate NEGATIVE NEGATIVE Urine Bilirubin NEGATIVE NEGATIVE mg/dL Urine Urobilinogen 2.0 H 0.2-1.0 mg/dL Urine Leukocyte Esterase NEGATIVE NEGATIVE Zhou/uL Urine RBC 2-5 H 0-1 /HPF Urine WBC 2-5 H 0-1 /HPF Urine Squamous Epithelial Cells RARE 0-2 /HPF Urine Bacteria None None Seen /HPF Current Medications Medications (Trade) Dose Ordered Sig/Jacy Route PRN Reason Start Time Stop Time Status Last Admin Dose Admin Acetaminophen (TYLenol 325MG TAB) 650 mg Q6H PRN PO TEMPERATURE GREATER THAN 101.5 07/15/24 00:30 08/14/24 00:29 Famotidine (Pepcid 20mg Vial) 20 mg DAILY IV 07/15/24 09:00 08/14/24 08:59 07/15/24 10:18 20 MG Lactated Ringer's 1,000 ml @ 75 mls/hr [id number] IV 07/15/24 00:30 08/14/24 00:29 07/15/24 01:04 75 MLS/HR Magnesium Sulfate 50 ml @ 0 mls/hr PROTOCOL IV 07/15/24 11:30 08/14/24 11:29 07/15/24 11:24 25 MLS/HR Morphine Sulfate (morPHINE 2MG SYG) 2 mg Q4H PRN IVP SEVERE PAIN (7-10) 07/14/24 23:30 07/21/24 23:29 07/15/24 12:25 2 MG Ondansetron HCl (zoFRAN 4MG INJ) 4 mg Q6H PRN IV NAUSEA/VOMITING 07/15/24 00:30 08/14/24 00:29 Ondansetron HCl (zoFRAN 4MG INJ) 4 mg Q6H PRN IVP NAUSEA/VOMITING 07/14/24 23:30 07/15/24 00:10 DC DIAGNOSTICS / RADIOLOGY: [ ] ASSESSMENT: [ ] PLAN: [ ] ADRIANO DICKERSON MD July 15, 2024 13:17
[2024-07-15] MEDS ORDERED: hydroMORPHone 0.5 MG SYG (0.5MG/0.5ML) IVP PRN (13:30)
[2024-07-15] MEDS: TRANEXAMIC ACID IV ONE (14:00)
[2024-07-15] MEDS: [UNRECOGNIZED DRUG - OTHER] IV ONE (14:00)
[2024-07-15] MEDS ORDERED: PHARMACY COMMUNICATION 1 EACH EACH MISC SCH (14:00)
--- NOTE | 2024-07-15 14:06 | CONS ---
CONSULTATION NOTE Date of Service: July 15, 2024 Reason for Consultation: Gross hematuria with clot retention/radiation cystitis Requesting Physician: Dr Hampton HISTORY OF PRESENT ILLNESS: This gentleman has a history of prostate cancer was treated with prostatectomy followed by adjuvant radiotherapy for recurrent disease. This was several years back. He was being managed by urologist in [place]. We recently met him as a consult here at [facility] presented with such episode. Failed conservative treatment on the floor. Was taken to the operating room on 07/10/2024 for cystoscopy with clot evacuation and fulguration of the bladder. Unfortunately because this hospital has nothing by the monopolar system the fulguration was not very effective. We discussed with the family body options. He was managed on the floor few days afterwards and discharged home with a Whitmore catheter to keep his bladder decompressed. Presents to the hospital because the catheter is clogged nothing is coming out. He is having excruciating pain. A CT scan did show clot material in the bladder. Was admitted to the floor with a urological consult. REVIEW OF SYSTEMS CONSTITUTIONAL: Denies fever, chills, or fatigue. HEAD/FACE: No signs of trauma. EENT: Denies eye pain, blurred vision, double vision, or light sensitivity. RESPIRATORY: Denies shortness of breath, cough, wheezing CARDIOVASCULAR: Denies chest pain, palpitation, syncope GASTROINTESTINAL/ABDOMINAL: Denies abdominal pain, constipation, diarrhea, nausea or vomiting GENITOURINARY: A gross hematuria with clot retention MUSCULOSKELETAL: Denies joint pain, tenderness, or trauma. INTEGUMENTARY: Denies rash or itchiness NEUROLOGICAL/PSYCH: Denies anxiety, depression, heat or cold intolerance. PAST MEDICAL HISTORY: Prostate cancer Skin cancer CAD PAST SURGICAL HISTORY: Cardiac catheterizations Surgical prostatectomy Adjuvant radiotherapy PAST SOCIAL HISTORY: Denies any smoking Denies ethanol Denies recreational drugs FAMILY HISTORY: Noncontributory to presenting complaint Coded Allergies: No Known Drug Allergies (Verified Allergy, Unknown, 03/31/21) PHYSICAL EXAM EYES: Anicteric. Pupils equal and reactive. HENT: No oral thrush seen, moist Oral mucosa NECK: Supple, no JVD or thyromegaly. LUNGS: Good air entry. No rales, no rhonchi. CARDIOVASCULAR: S1, S2 regular. No murmur heard. ABDOMEN: Soft, non tender, bowel sounds present, no organomegaly CENTRAL NERVOUS SYSTEM: Awake, alert, oriented x 3. No focal deficits. SKIN: No rashes, no swelling. LYMPHATICS: No peripheral lymphadenopathy MUSCULOSKELETAL: No joint swelling, erythema or tenderness. EXTREMITIES: No cyanosis or clubbing BACK: No deformity, no pressure ulcer. GENITOURINARY: Has a large bore Whitmore catheter in place no CBI is running almost nothing is draining. Vital Sign (Last 24 Hours) 07/14/24 07/15/24 07/15/24 22:30 04:00 12:00 Temp 97.9 Pulse 73 Resp 19 B/P (MAP) 120/57 Pulse Ox 96 O2 Delivery Room Air O2 Flow Rate 0 FiO2 21 Intake & Output (last 24hrs) 07/14/24 07/14/24 07/15/24 15:00 23:00 07:00 Output Total 350 ml Balance -350 ml LABS: Laboratory: Test 07/15/24 11:01 07/15/24 06:33 07/14/24 17:03 Range/Units Whole Blood Glucose 130 H 70-110 MG/DL White Blood Count 11.0 H 4.8-10.8 K/uL Red Blood Count 3.19 L 4.50-6.20 MIL/uL Hemoglobin 10.1 L 14.0-18.0 g/dL Hematocrit 29.7 L 42-54 % Mean Corpuscular Volume 93.1 79-99 fL Mean Corpuscular Hemoglobin 31.7 27.0-33.0 pg Mean Corpuscular Hemoglobin Concent 34.0 32.0-36.0 g/dL Red Cell Distribution Width 12.8 11.0-15.5 % Platelet Count 207 130-400 K/uL Mean Platelet Volume 9.8 7.5-10.5 fL Immature Granulocyte % (Auto) 0.5 0-1 % Neutrophils (%) (Auto) 75.7 40.0-77.0 % Lymphocytes (%) (Auto) 14.8 L 21.0-51.0 % Monocytes (%) (Auto) 7.9 3.0-13.0 % Eosinophils (%) (Auto) 0.9 0.0-8.0 % Basophils (%) (Auto) 0.2 0.0-5.0 % Neutrophils # (Auto) 8.3 H 1.8-7.7 K/uL Lymphocytes # (Auto) 1.6 1.0-4.8 K/uL Monocytes # (Auto) 0.9 0.1-1.0 K/uL Eosinophils # (Auto) 0.10 0.00-0.70 K/uL Basophils # (Auto) 0.02 0.00-0.20 K/uL Absolute Immature Granulocyte (auto 0.06 0-1 K/uL Nucleated Red Blood Cells 0.0 0.0-0.19 % Prothrombin Time 10.9 9.6-11.6 SEC Prothromb Time International Ratio 1.03 0.85-1.15 Activated Partial Thromboplast Time 29.1 26.3-35.5 SEC Sodium Level 135 L 136-145 mmol/L Potassium Level 4.3 3.5-5.1 mmol/L Chloride Level 100 L 101-111 mmol/L Carbon Dioxide Level 24 21-32 mmol/L Blood Urea Nitrogen 16 7-18 mg/dL Creatinine 1.3 0.5-1.3 mg/dL Glomerular Filtration Rate Calc 57 >90 mL/min Random Glucose 158 H 70-105 mg/dL Total Calcium 8.7 8.5-10.1 mg/dL Phosphorus Level 4.7 2.5-4.9 mg/dL Magnesium Level 1.70 L 1.80-2.40 mg/dL Urine Color LIGHT-YELLOW YELLOW Urine Appearance CLEAR CLEAR Urine pH 6.0 5.0-8.0 Urine Specific [place] 1.010 1.001-1.031 Urine Protein NEGATIVE NEGATIVE mg/dL Urine Glucose (UA) TRACE H NEGATIVE mg/dL Urine Ketones NEGATIVE NEGATIVE mg/dL Urine Occult Blood NEGATIVE NEGATIVE Urine Nitrate NEGATIVE NEGATIVE Urine Bilirubin NEGATIVE NEGATIVE mg/dL Urine Urobilinogen 2.0 H 0.2-1.0 mg/dL Urine Leukocyte Esterase NEGATIVE NEGATIVE Zhou/uL Urine RBC 2-5 H 0-1 /HPF Urine WBC 2-5 H 0-1 /HPF Urine Squamous Epithelial Cells RARE 0-2 /HPF Urine Bacteria None None Seen /HPF DIAGNOSTICS / RADIOLOGY: CT abdomen and pelvis without contrast from 07/14/2024 does show a large clot and golfing the balloon of the Whitmore catheter. Bladder is distended. 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 Because of the clot material in the bladder, we take him downstairs to the operating room for clot evacuation. We could have done this bedside but it will be very painful for him. 2. Once the clots were evacuated, we will run some medications in his bladder. Starting with TXA and then followed by intravesical alum if it is available in his facility. 60 minutes spent to complete a consult more than half of the time spent at bedside in counseling and coordination of care and addressing questions posed by patient and family present at bedside, some time was spent discussing with members of his care team, the rest of the time was spent reviewing medical records past and present as well as imaging and laboratory data. NITHYA ROMERO MD July 15, 2024 14:06
[2024-07-15] MEDS ORDERED: dexaMETHasone SOD PHOSPHATE 10MG/ML 1ML VIAL ONE (14:36)
[2024-07-15] MEDS ORDERED: LIDOCAINE HCL MPF 1% 5ML VIAL ONE (14:36)
[2024-07-15] MEDS ORDERED: phenylEPHRINE HCL 10 MG/ML 1ML VIAL IV ONE (14:37)
[2024-07-15] MEDS ORDERED: GLYCOPYRROLATE 0.2 MG/ML 5 ML VIAL ONE (14:38)
[2024-07-15] MEDS ORDERED: ondanSETRON 4MG INJ ONE (14:38)
[2024-07-15] MEDS ORDERED: proPOFol 10 MG/ML 20ML VIAL IV ONE (14:38)
[2024-07-15] MEDS ORDERED: rocuRONium bROMide 10MG/1ML 5ML VL ONE (14:38)
[2024-07-15] MEDS ORDERED: MIDAZOLAM HCL 1 MG/ML 2ML VIAL ONE (14:38)
[2024-07-15] MEDS ORDERED: FENTanyl CITRate PF 50 MCG/1 ML 2ML VIAL ONE (14:38)
[2024-07-15] MEDS ORDERED: NEOSTIGMINE METHYLSULFATE 1MG/ML IV ONE (14:38)
[2024-07-15] MEDS ORDERED: ceFAZolin SODIUM 1 GM VIAL ONE (15:17)
[2024-07-15] MEDS: ceFAZolin SODIUM 2 GM VIAL IVPB ONE (15:28)
[2024-07-15] MEDS: TRANEXAMIC ACID 1000MG/10ML TP ONE (16:05)
--- NOTE | 2024-07-15 16:24 | OP ---
Operative Note: DATE OF PROCEDURE: 07/15/24 SURGEON: NITHYA ROMERO MD TITLE DEPARTMENT MANAGER: Operating room staff ANESTHESIA: General anesthesia ANESTHESIOLOGIST/MECHANICAL SYSTEMS DESIGN ENGINEER: Anesthesia staff PREOPERATIVE DIAGNOSIS: 1. Recurrent gross hematuria with clot retention 2. Hemorrhagic/radiation cystitis POSTOPERATIVE DIAGNOSIS: 1. Recurrent gross hematuria with clot retention 2. Hemorrhagic/radiation cystitis SYNOPSIS: Large clots identified in the bladder, evacuated and removed. Mucosa l oozing noted. Very judicious coagulation with the monopolar system was performed. Instillation of TXA into the bladder. PROCEDURE: 1. 71133 Cystourethroscopy with evacuation of multiple obstructing clots 2. 60419 Cystourethroscopy with fulguration of the bladder neck and trigone 3. 18198 Instillation of TXA for bleeding control ESTIMATED BLOOD LOSS: Blood clots evacuated from the bladder INDICATIONS: This is a 74-year-old man with a history of prostate cancer who was dealing with recurrent gross hematuria with clot obstruction. He has developed radiation cystitis. Was recently seen in his hospital and taken to the operating room at the end of June of 2024 for clot evacuation. Discharged home with a Whitmore catheter in place, returned last night with a Whitmore catheter has clogged. He was managed temporarily with a CBI on the floor but without much improvement. He has been brought to the operating room for clot evacuation, fulguration and instillation of TXA into the bladder DESCRIPTION OF PROCEDURE: Patient identified in the holding area, consent verified. He received Ancef prophylaxis and taken to the operating suite. He was placed in the supine position, after induction he underwent general anesthesia. Next it was placed in low lithotomy, his genitalia was prepped he was draped in a time-out was performed. We went with a 22 Cymraes cystoscope with a 30 degree endoscope. Urethra was normal except the posterior urethra which was very raggedy suggestive of radiation changes. We entered the bladder. Multiple clots identified. We used a Luc syringe to systematically evacuate this clot. After several flushes of the bladder we had successfully evacuated all the clots and visualization improved. There was some mucosal oozing that we identified. We switched to a rollerball bipolar collide multicultural manager and were able to coagulate some of these areas in a very judicious fashion not to stir up further bleeding. Once we are satisfied with the coagulation, placed a22 C[address] Whitmore catheter and then a infused a 60 mL infusion of 1000 mg of TXA into the bladder. We clamped the Whitmore catheter with the anticipated dwell time of 20 minutes. After that the Whitmore catheter will be uptake opened and CBI will be continued. There were no complications. Plan: The plan is to transfer him back to the floor and run CBI slowly. We have ordered alum bladder irrigation from the pharmacy. If that is available that will also be ran into his bladder to help. NITHYA ROMERO MD July 15, 2024 16:24
[2024-07-15] MEDS: FENTanyl CITRate PF 50 MCG/1 ML 2ML VIAL ONE (16:50)
--- NOTE | 2024-07-15 17:37 | NUR ---
PT ARRIVED FROM OR. AWAKE AND ALERT. CBI INFUSING. F/C DRAINING CLEAR TO TINGED PINK. NO S/S OF DISTRESS NOTED.
--- NOTE | 2024-07-15 19:04 | NUR ---
D/C PLAN CM spoke to patient and family at bedside regarding d/c planning. Patient lives with spouse. Denies having any home services or DME. Reports he is independent with ADL's. CM discussed recent hospital discharge. Patient and family requesting to be discharged with home health services for f/u care. Would like services to be covered through the OR. CM obtained [facility] for any in network home health. Son states patient will be staying with him while he recovers. Provided CM with address for home health visits: [address] [place] [address]. CM to f/u with OR social organization professor tomorrow. Addendum: 07/15/24 at 1907 by DARA JUAREZ Amended: Links added.
[2024-07-16] VITALS (8 sets, daily range): BP systolic 98–117; BP diastolic 46–62; PULSE 60–66; RESP 16–21; TEMP 97.9–98.4; O2SAT 97–98
[2024-07-16 08:31] LABS: BASOPHILS # (AUTO) 0.02 K/uL (0.00-0.20); BASOPHILS % (AUTO) 0.2 % (0.0-5.0); EOSINOPHILS # (AUTO) 0.02 K/uL (0.00-0.70); EOSINOPHILS % (AUTO) 0.2 % (0.0-8.0); HEMATOCRIT 25.7 % (42-54); IMMATURE GRANULOCYTE ABSOLUTE 0.04 K/uL (0-1); LYMPHOCYTES % (AUTO) 9.7 % (21.0-51.0); MEAN CORPUSCULAR HEMOGLOBIN 32.5 pg (27.0-33.0); MEAN CORPUSCULAR HGB CONC 34.2 g/dL (32.0-36.0); MEAN CORPUSCULAR VOLUME 94.8 fL (79-99); MONOCYTES # (AUTO) 0.7 K/uL (0.1-1.0); MONOCYTES % (AUTO) 6.4 % (3.0-13.0); NEUTROPHILS # (AUTO) 8.4 K/uL (1.8-7.7); NEUTROPHILS % (AUTO) 83.1 % (40.0-77.0); PLATELET COUNT (AUTO) 177 K/uL (130-400); RED BLOOD CELL COUNT(AUTO) 2.71 MIL/uL (4.50-6.20); RED CELL DISTRIBUTION WIDTH 12.7 % (11.0-15.5); WHITE BLOOD COUNT (AUTO) 10.1 K/uL (4.8-10.8)
[2024-07-16 08:44] LABS: ALBUMIN 2.6 g/dL (3.5-5.0); BILIRUBIN,TOTAL 0.2 mg/dL (0.2-1.0); CREATININE 1.2 mg/dL (0.5-1.3); POTASSIUM 4.2 mmol/L (3.5-5.1); TOTAL PROTEIN, SERUM 6.6 g/dL (6.0-8.3)
[2024-07-16] MEDS: metOPROLol sucCINATE 50 MG TAB.SR.24H PO SCH (08:50)
[2024-07-16] MEDS: SACUBITRIL/VALSARTAN 1 EACH TABLET PO SCH (08:50)
[2024-07-16] MEDS: buPROPion HCL 150 MG TABLET.SA PO SCH (08:50)
[2024-07-16] MEDS: IRON sUCROse COMPLEX 100 MG/5 ML VIAL IV ONE ×2 (12:00→14:26)
--- NOTE | 2024-07-16 12:16 | NUR ---
CM NOTE/HOME HEALTH CM spoke to Dr. Garcia and Dr. Walls regarding d/c planning. CM received home health orders. CM to fax request to [place] and f/u. CM notified [facility] of pending request. Patient still pending to be weaned off CBI.
--- NOTE | 2024-07-16 12:17 | PN ---
[facility] PROGRESS NOTE Date of Service: July 16, 2024 Time of Service: 12:14 SUBJECTIVE: 74-year-old male with a history of BPH, prostate CA s/p prostatectomy, penile urethral stricture , urinary incontinence, skin CA, CHF, HDL, left BBB, heart murmur, HTN, and DM who presented to [facility] for evaluation of hematuria and urinary retention secondary to blood clots. Cystoscopy was performed several weeks ago with a Whitmore placed. Since then, the patient has been admitted to the emergency room multiple times to have the Whitmore replaced because of blood clots. 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 Labs and vitals at the time of admission are unremarkable. CT of abdomen and pelvis shows large amount of likely clots demonstrated in the bladder, bladder grossly distended, mild bilateral hydroureteronephrosis. He was admitted for further evaluation and management. 07/15/2024: Patient seen in room with RN. He was having trouble with Whitmore not draining urine due to possibly retained clot obstructing. He was not able to tolerate any irrigation. I called and discussed with Dr. Watson. He will be coming in to evaluate the patient to soon as he can. Meanwhile he said it is okay to give pain medications I will he was some morphine and Dilaudid and await urological intervention. 07/16/2024: Seen resting comfortably on his bed. Patient underwent cystourethroscopy with evacuation of multiple obstructing clots and fulguration of the bladder neck and trigone. He was also treated with tranexamic acid for bleeding control. He continues to be on slow CBI. Pending Alum bladder irrigation. Urine in his Whitmore bag appears light pink and patient denies any abdominal pain at this time. REVIEW OF SYSTEMS CONSTITUTIONAL: Denies fevers, chills, or night sweats. No unintentional weight loss reported. NEUROLOGICAL: Denies headache, amaurosis fugax, motor weakness, sensory deficit, vertigo/spinning sensation, gait abnormalities, or tremors. ENT: No hearing loss, otalgia, otorrhea, rhinitis, rhinorrhea, hoarseness, or sore throat. CARDIOVASCULAR: Denies any exertional angina, dyspnea on exertion, orthopnea, paroxysmal nocturnal dyspnea, palpitations, life-threatening arrhythmias, claudication. PULMONARY: Denies any shortness of breath, cough, phlegm/sputum, hemoptysis, pleuritic chest pain. SLEEP: Denies morning headaches, daytime somnolence or napping. Denies difficulty falling asleep, staying asleep, waking from sleep. Denies knowledge of snoring. GASTROINTESTINAL: Denies any type of dysphagia to either liquids or solids. Denies nausea, vomiting, pyrosis, early satiety, abdominal pain, diarrhea, constipation, or changes in stool consistency or caliber. Denies coffee-ground emesis, hematemesis, hematochezia, or melanotic stools. GENITOURINARY: Denies frequency, urgency, nocturia, hematuria or incontinence (Storage/Irritative symptoms.) Low urinary stream, straining to void, urinary intermittency or hesitancy, splitting of the voiding stream, terminal dribbling. ENDOCRINOLOGIC: Denies polyuria, polydipsia, polyphagia or heat/cold intolerances. HEMATOLOGIC: Denies thrombophilia/previous clots, or coagulopathy/bleeding disorders. ONCOLOGIC: Denies personal history of malignancy. DERMATOLOGIC: Denies rashes or pruritus. PSYCHIATRIC: Denies any suicidal or homicidal ideation. Denies hallucinations. PHYSICAL EXAM GENERAL APPEARANCE: The patient is awake, alert, and oriented, in no acute cardiopulmonary distress. NEUROLOGICAL: Cranial nerves II-XII grossly intact. Motor is 5/5 in bilateral upper and lower extremities proximal to distal. No sensory deficits. HEENT: Face is symmetric. Pupils are equal and reactive. Extraocular movements are intact. NECK: Supple. No JVD. No thyromegaly. No submental, submandibular, pre- /postauricular, occipital or supraclavicular lymphadenopathy. CHEST: Normal chest expansion. No Telemetry. LUNGS: Absence of any rales, rhonchi or any wheezing. CARDIOVASCULAR: Regular. S1 and S2 normal. No appreciable rubs, murmurs or gallops. ABDOMEN: Soft, nontender, and nondistended. There is no rebound, voluntary guarding, or rigidity. : Deferred. No Whitmore. EXTREMITIES: Non-edematous and not cyanotic. No clubbing. Good capillary refill. SKIN: No skin breakdown. Vital Signs (last 8hr) Date Time Temp Pulse Resp B/P (MAP) Pulse Ox O2 Delivery O2 Flow Rate FiO2 07/16/24 11:11 98.4 66 18 112/50 96 Nasal Cannula 1.0 22 07/16/24 07:00 98.2 65 18 117/54 95 Nasal Cannula 1.0 22 LABS: Laboratory: Test 07/16/24 10:31 07/16/24 08:24 07/15/24 06:33 07/14/24 17:03 Range/Units Whole Blood Glucose 227 H 70-110 MG/DL White Blood Count 10.1 4.8-10.8 K/uL Red Blood Count 2.71 L 4.50-6.20 MIL/uL Hemoglobin 8.8 L 14.0-18.0 g/dL Hematocrit 25.7 L 42-54 % Mean Corpuscular Volume 94.8 79-99 fL Mean Corpuscular Hemoglobin 32.5 27.0-33.0 pg Mean Corpuscular Hemoglobin Concent 34.2 32.0-36.0 g/dL Red Cell Distribution Width 12.7 11.0-15.5 % Platelet Count 177 130-400 K/uL Mean Platelet Volume 9.7 7.5-10.5 fL Immature Granulocyte % (Auto) 0.4 0-1 % Neutrophils (%) (Auto) 83.1 H 40.0-77.0 % Lymphocytes (%) (Auto) 9.7 L 21.0-51.0 % Monocytes (%) (Auto) 6.4 3.0-13.0 % Eosinophils (%) (Auto) 0.2 0.0-8.0 % Basophils (%) (Auto) 0.2 0.0-5.0 % Neutrophils # (Auto) 8.4 H 1.8-7.7 K/uL Lymphocytes # (Auto) 1.0 1.0-4.8 K/uL Monocytes # (Auto) 0.7 0.1-1.0 K/uL Eosinophils # (Auto) 0.02 0.00-0.70 K/uL Basophils # (Auto) 0.02 0.00-0.20 K/uL Absolute Immature Granulocyte (auto 0.04 0-1 K/uL Nucleated Red Blood Cells 0.0 0.0-0.19 % White Cell Morphology Comment See comments Sodium Level 139 136-145 mmol/L Potassium Level 4.2 3.5-5.1 mmol/L Chloride Level 105 101-111 mmol/L Carbon Dioxide Level 26 21-32 mmol/L Blood Urea Nitrogen 21 H 7-18 mg/dL Creatinine 1.2 0.5-1.3 mg/dL Glomerular Filtration Rate Calc 63 >90 mL/min Random Glucose 251 H 70-105 mg/dL Total Calcium 8.3 L 8.5-10.1 mg/dL Total Bilirubin 0.2 0.2-1.0 mg/dL Aspartate Amino Transf (AST/SGOT) 14 10-37 U/L Alanine Aminotransferase (ALT/SGPT) 17 12-78 U/L Alkaline Phosphatase 68 50-136 U/L Total Protein 6.6 6.0-8.3 g/dL Albumin 2.6 L 3.5-5.0 g/dL Prothrombin Time 10.9 9.6-11.6 SEC Prothromb Time International Ratio 1.03 0.85-1.15 Activated Partial Thromboplast Time 29.1 26.3-35.5 SEC Phosphorus Level 4.7 2.5-4.9 mg/dL Magnesium Level 1.70 L 1.80-2.40 mg/dL Urine Color LIGHT-YELLOW YELLOW Urine Appearance CLEAR CLEAR Urine pH 6.0 5.0-8.0 Urine Specific Orla 1.010 1.001-1.031 Urine Protein NEGATIVE NEGATIVE mg/dL Urine Glucose (UA) TRACE H NEGATIVE mg/dL Urine Ketones NEGATIVE NEGATIVE mg/dL Urine Occult Blood NEGATIVE NEGATIVE Urine Nitrate NEGATIVE NEGATIVE Urine Bilirubin NEGATIVE NEGATIVE mg/dL Urine Urobilinogen 2.0 H 0.2-1.0 mg/dL Urine Leukocyte Esterase NEGATIVE NEGATIVE Zhou/uL Urine RBC 2-5 H 0-1 /HPF Urine WBC 2-5 H 0-1 /HPF Urine Squamous Epithelial Cells RARE 0-2 /HPF Urine Bacteria None None Seen /HPF Current Medications Medications (Trade) Dose Ordered Sig/Jacy Route PRN Reason Start Time Stop Time Status Last Admin Dose Admin Acetaminophen (TYLenol 325MG TAB) 650 mg Q6H PRN PO TEMPERATURE GREATER THAN 101.5 07/15/24 00:30 08/14/24 00:29 Atorvastatin Calcium (LIPItor 20MG) 20 mg HS PO 07/16/24 21:00 08/15/24 20:59 Bupropion HCl (WellBUTrin SR 150MG) 150 mg DAILY PO 07/16/24 09:00 08/15/24 08:59 07/16/24 08:50 150 MG Famotidine (Pepcid 20mg Vial) 20 mg DAILY IV 07/15/24 09:00 08/14/24 08:59 07/16/24 08:50 20 MG Hydromorphone HCl (DiLAUDid 0.5MG INJ) 0.5 mg Q6H PRN IVP SEVERE PAIN (7-10) 07/15/24 13:30 07/20/24 13:29 Lactated Ringer's 1,000 ml @ 75 mls/hr [id number] IV 07/15/24 00:30 08/14/24 00:29 07/16/24 08:50 75 MLS/HR Magnesium Sulfate 50 ml @ 0 mls/hr PROTOCOL IV 07/15/24 11:30 08/14/24 11:29 07/15/24 11:24 25 MLS/HR Metoprolol Succinate (TopROL XL) 50 mg DAILY PO 07/16/24 09:00 08/15/24 08:59 07/16/24 08:50 50 MG Morphine Sulfate (morPHINE 2MG SYG) 2 mg Q4H PRN IVP MODERATE PAIN (4-6) 07/14/24 23:30 07/21/24 23:29 07/15/24 12:25 2 MG Ondansetron HCl (zoFRAN 4MG INJ) 4 mg Q6H PRN IV NAUSEA/VOMITING 07/15/24 00:30 08/14/24 00:29 Ondansetron HCl (zoFRAN 4MG INJ) 4 mg Q6H PRN IVP NAUSEA/VOMITING 07/14/24 23:30 07/15/24 00:10 DC Pharmacy Profile Note (Lace Assessment) 1 each AD MISC 07/15/24 14:00 07/15/24 13:53 DC Sacubitril/ Valsartan (Entresto 97 Mg-103 Mg Tablet) 1 each DAILY PO 07/16/24 09:00 08/15/24 08:59 07/16/24 08:50 1 EACH DIAGNOSTICS / RADIOLOGY: [ ] ASSESSMENT: Hemorrhagic radiation cystitis, POA Acute Urinary retention secondary to Whitmore catheter obstruction with blood clots, POA-status post cystourethroscopy with clot evacuation on 07/15/2024 Mild bilateral hydroureteronephrosis, POA Acute blood loss anemia, POA Diabetes mellitus type 2, POA Chronic Whitmore's catheter, POA Chronic problem list: BPH, prostate CA s/p prostatectomy and radiotherapy , skin CA, CHF, HDL, left BBB, heart murmur, HTN, and DM Penile urethral stricture Incontinence PLAN: Hemorrhagic radiation cystitis, POA Acute Urinary retention secondary to Whitmore catheter obstruction with blood clots, POA-status post cystourethroscopy with clot evacuation on 07/15/2024 Slow CBI Irrigation with Alum Pending urology recommendations for discharge with possible home health for evacuation of clots Patient is requested to stop Aspirin Mild bilateral hydroureteronephrosis, POA Acute blood loss anemia, POA Hemoglobin at 8.8 Patient with iron-deficiency anemia we will treat with IV iron Continue monitor H and H Diabetes mellitus type 2, POA Stable blood sugars Chronic Whitmore's catheter, POA Urinalysis negative ATTESTATION BY PHYSICIAN I have seen and examined the patient. I reviewed the documentation, medical decision making, and treatment plan as noted by the resident provider above. I agree with the findings and plan of care. Titi Hampton MD, MD, ANCHU A MD July 16, 2024 12:17
[2024-07-16 15:33] LABS: HEMATOCRIT 22.1 % (42-54)
[2024-07-16] MEDS: doCUSate SODIUM 100 MG CAP PO ONE (20:35)
[2024-07-16] MEDS: atorVAStatin 20 MG TABLET PO SCH (20:35)
--- NOTE | 2024-07-16 21:19 | PN ---
PROGRESS NOTE Date of Service: July 16, 2024 Time of Service: 21:14 SUBJECTIVE: Resting comfortably. CBI is running at a very slow rate. Urine is clear in the tubing. Postop day one status post cystoscopy with clot evacuation, judicious coagulation with instillation of intravesical TXA. We ordered for intravesical alum bladder irrigation but has not been done yet. It is not clear if the pharmacy does not have the medication. This patient would certainly need some kind of chemical bladder irrigation before he can be let out of this hospital. If alum is not available can try other alternatives such as aminocaproic acid. This patient was going to need ambulatory hyperbaric oxygen treatments. We need to do some chemical bladder irrigation to buy him some time so that he can get started with hyperbarics. REVIEW OF SYSTEMS CONSTITUTIONAL: Denies fever, chills, or fatigue. HEAD/FACE: No signs of trauma. EENT: Denies eye pain, blurred vision, double vision, or light sensitivity. RESPIRATORY: Denies shortness of breath, cough, wheezing CARDIOVASCULAR: Denies chest pain, palpitation, syncope GASTROINTESTINAL/ABDOMINAL: Denies abdominal pain, constipation, diarrhea, nausea or vomiting GENITOURINARY: A gross hematuria with clot retention MUSCULOSKELETAL: Denies joint pain, tenderness, or trauma. INTEGUMENTARY: Denies rash or itchiness NEUROLOGICAL/PSYCH: Denies anxiety, depression, heat or cold intolerance. PHYSICAL EXAM EYES: Anicteric. Pupils equal and reactive. HENT: No oral thrush seen, moist Oral mucosa NECK: Supple, no JVD or thyromegaly. LUNGS: Good air entry. No rales, no rhonchi. CARDIOVASCULAR: S1, S2 regular. No murmur heard. ABDOMEN: Soft, non tender, bowel sounds present, no organomegaly CENTRAL NERVOUS SYSTEM: Awake, alert, oriented x 3. No focal deficits. SKIN: No rashes, no swelling. LYMPHATICS: No peripheral lymphadenopathy MUSCULOSKELETAL: No joint swelling, erythema or tenderness. EXTREMITIES: No cyanosis or clubbing BACK: No deformity, no pressure ulcer. GENITOURINARY: Has a large bore Whitmore catheter in place no CBI is running at a very slow rate Vital Signs (last 8hr) Date Time Temp Pulse Resp B/P (MAP) Pulse Ox O2 Delivery O2 Flow Rate FiO2 07/16/24 19:05 98.1 62 20 98/52 97 Room Air 07/16/24 15:05 97.9 61 16 105/50 96 1.0 22 LABS: Laboratory: Test 07/16/24 19:55 07/16/24 15:19 07/16/24 08:24 07/15/24 06:33 Range/Units Whole Blood Glucose 302 H 70-110 MG/DL Hemoglobin 7.7 L 14.0-18.0 g/dL Hematocrit 22.1 L 42-54 % White Blood Count 10.1 4.8-10.8 K/uL Red Blood Count 2.71 L 4.50-6.20 MIL/uL Mean Corpuscular Volume 94.8 79-99 fL Mean Corpuscular Hemoglobin 32.5 27.0-33.0 pg Mean Corpuscular Hemoglobin Concent 34.2 32.0-36.0 g/dL Red Cell Distribution Width 12.7 11.0-15.5 % Platelet Count 177 130-400 K/uL Mean Platelet Volume 9.7 7.5-10.5 fL Immature Granulocyte % (Auto) 0.4 0-1 % Neutrophils (%) (Auto) 83.1 H 40.0-77.0 % Lymphocytes (%) (Auto) 9.7 L 21.0-51.0 % Monocytes (%) (Auto) 6.4 3.0-13.0 % Eosinophils (%) (Auto) 0.2 0.0-8.0 % Basophils (%) (Auto) 0.2 0.0-5.0 % Neutrophils # (Auto) 8.4 H 1.8-7.7 K/uL Lymphocytes # (Auto) 1.0 1.0-4.8 K/uL Monocytes # (Auto) 0.7 0.1-1.0 K/uL Eosinophils # (Auto) 0.02 0.00-0.70 K/uL Basophils # (Auto) 0.02 0.00-0.20 K/uL Absolute Immature Granulocyte (auto 0.04 0-1 K/uL Nucleated Red Blood Cells 0.0 0.0-0.19 % White Cell Morphology Comment See comments Sodium Level 139 136-145 mmol/L Potassium Level 4.2 3.5-5.1 mmol/L Chloride Level 105 101-111 mmol/L Carbon Dioxide Level 26 21-32 mmol/L Blood Urea Nitrogen 21 H 7-18 mg/dL Creatinine 1.2 0.5-1.3 mg/dL Glomerular Filtration Rate Calc 63 >90 mL/min Random Glucose 251 H 70-105 mg/dL Total Calcium 8.3 L 8.5-10.1 mg/dL Total Bilirubin 0.2 0.2-1.0 mg/dL Aspartate Amino Transf (AST/SGOT) 14 10-37 U/L Alanine Aminotransferase (ALT/SGPT) 17 12-78 U/L Alkaline Phosphatase 68 50-136 U/L Total Protein 6.6 6.0-8.3 g/dL Albumin 2.6 L 3.5-5.0 g/dL Prothrombin Time 10.9 9.6-11.6 SEC Prothromb Time International Ratio 1.03 0.85-1.15 Activated Partial Thromboplast Time 29.1 26.3-35.5 SEC Phosphorus Level 4.7 2.5-4.9 mg/dL Magnesium Level 1.70 L 1.80-2.40 mg/dL DIAGNOSTICS / RADIOLOGY: CT abdomen and pelvis without contrast from 07/14/2024 does show a large clot and golfing the balloon of the Whitmore catheter. Bladder is distended. 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 Postop day one status post clot evacuation/judicious/targeted fulguration/intravesical TXA instillation. 2. Patient would need chemical bladder irrigation. We prefer intravesical alum. If that is not available, we can consider intravesical Amicar. 3. Once the chemical bladder irrigation has been performed, he can be discharged with arrangements to start receiving [facility]. The attending physician for this patient current order the hyperbaric oxygen treatments since this patient has now a verifiable diagnosis of radiation cystitis. 4. Thank you for allowing us to take care of this patient. 5 minutes spent to complete the visit, more than half of the time spent at [facility] in counseling and coordination of care and addressing questions posed by patient, some time was spent discussing with members of his care team, the rest of the time was spent reviewing medical records NITHYA ROMERO MD July 16, 2024 21:19
[2024-07-16] MEDS: INSULIN humuLIN R 100 UNIT/ML 3ML SQ ONE (22:00)
--- NOTE | 2024-07-16 22:00 | NUR ---
urology dr. estrada rounded as per dr. estrada, primary physician needs to order hyperbaric oxygen therapies through home health [facility].
[2024-07-16 22:28] LABS: HEMATOCRIT 24.2 % (42-54)
[2024-07-17] VITALS (7 sets, daily range): BP systolic 93–118; BP diastolic 41–57; PULSE 57–65; RESP 16–20; TEMP 98–98.4; O2SAT 98
--- NOTE | 2024-07-17 02:38 | NUR ---
nurse note patient alert and oriented times 4. plan of care discussed with him and he verbalized understanding. patient has no pain tonight. We are running CBI at a slow rate and his urine is clear pink tonight. He has no clots. He has slept about 4 hours tonight. He calls for assistance to the restroom. Dr. Watson at bedside around 21:00. No new orders given. Call light within reach, bed alarm on, 2 side rails up. will continue to monitor patient.
--- NOTE | 2024-07-17 04:00 | NUR ---
VITALS patient didn't want to be woken up. he refused vital signs at this time only.
[2024-07-17 04:32] LABS: HEMATOCRIT 23.4 % (42-54); MEAN CORPUSCULAR HEMOGLOBIN 32.4 pg (27.0-33.0); MEAN CORPUSCULAR HGB CONC 34.6 g/dL (32.0-36.0); MEAN CORPUSCULAR VOLUME 93.6 fL (79-99); RED BLOOD CELL COUNT(AUTO) 2.5 MIL/uL (4.50-6.20); RED CELL DISTRIBUTION WIDTH 12.7 % (11.0-15.5); WHITE BLOOD COUNT (AUTO) 8.7 K/uL (4.8-10.8)
[2024-07-17 05:15] LABS: CREATININE 1.1 mg/dL (0.5-1.3); POTASSIUM 3.3 mmol/L (3.5-5.1)
[2024-07-17] MEDS: INSULIN humuLIN R 100 UNIT/ML 3ML SQ SCH (05:24)
[2024-07-17] MEDS ORDERED: PoTASSium chl 10% ELIXIR 20MEQ 20 MEQ/15 ML UDCUP PO PRN (06:00)
[2024-07-17] MEDS ORDERED: PoTASSium chloRIDE 20MEQ/100ML 100 ML IV PRN (06:00)
[2024-07-17] MEDS: PoTASSium chloRIDE 20MEQ ER 20 MEQ ERTAB PO PRN (06:15)
--- NOTE | 2024-07-17 06:23 | NUR ---
cbi calculated cbi output and have 1,500 ml of true clear yellow urine output for the patient.
--- NOTE | 2024-07-17 09:18 | NUR ---
[facility] Care Coordination Call Chart reviewed and case discussed during the [facility] Care Coordination Call. Per Erika with the [place], the [facility] order has been received and is approved. Accepting agency is [facility]. Addendum: 07/17/24 at 0918 by JENNIE PHILLIP CM Amended: Links added.
[2024-07-17] MEDS ORDERED: aminoCAProic ACID 5,000MG VIAL IV ONE (12:30)
--- NOTE | 2024-07-17 12:45 | PN ---
[facility] PROGRESS NOTE Date of Service: July 17, 2024 Time of Service: 12:43 SUBJECTIVE: 74-year-old male with a history of BPH, prostate CA s/p prostatectomy, penile urethral stricture , urinary incontinence, skin CA, CHF, HDL, left BBB, heart murmur, HTN, and DM who presented to [facility] for evaluation of hematuria and urinary retention secondary to blood clots. Cystoscopy was performed several weeks ago with a Whitmore placed. Since then, the patient has been admitted to the emergency room multiple times to have the Whitmore replaced because of blood clots. 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 Labs and vitals at the time of admission are unremarkable. CT of abdomen and pelvis shows large amount of likely clots demonstrated in the bladder, bladder grossly distended, mild bilateral hydroureteronephrosis. He was admitted for further evaluation and management. 07/15/2024: Patient seen in room with RN. He was having trouble with Whitmore not draining urine due to possibly retained clot obstructing. He was not able to tolerate any irrigation. I called and discussed with Dr. Watson. He will be coming in to evaluate the patient to soon as he can. Meanwhile he said it is okay to give pain medications I will he was some morphine and Dilaudid and await urological intervention. 07/16/2024: Seen resting comfortably on his bed. Patient underwent cystourethroscopy with evacuation of multiple obstructing clots and fulguration of the bladder neck and trigone. He was also treated with tranexamic acid for bleeding control. He continues to be on slow CBI. Pending Alum bladder irrigation. Urine in his Whitmore bag appears light pink and patient denies any abdominal pain at this time. 07/17/2024: Patient seen resting comfortably on his bed. Patient had1 episode of hematuria yesterday-he is draining clear urine in the Whitmore's bag. Pharmacy does not have alum-we will request intravesical administration of Amicar 2.5 g. As per the Urology recommendations, patient will be discharged from the hospital for further hyperbaric oxygen treatment at the outpatient setting. REVIEW OF SYSTEMS CONSTITUTIONAL: Denies fevers, chills, or night sweats. No unintentional weight loss reported. NEUROLOGICAL: Denies headache, amaurosis fugax, motor weakness, sensory deficit, vertigo/spinning sensation, gait abnormalities, or tremors. ENT: No hearing loss, otalgia, otorrhea, rhinitis, rhinorrhea, hoarseness, or sore throat. CARDIOVASCULAR: Denies any exertional angina, dyspnea on exertion, orthopnea, paroxysmal nocturnal dyspnea, palpitations, life-threatening arrhythmias, claudication. PULMONARY: Denies any shortness of breath, cough, phlegm/sputum, hemoptysis, pleuritic chest pain. SLEEP: Denies morning headaches, daytime somnolence or napping. Denies difficulty falling asleep, staying asleep, waking from sleep. Denies knowledge of snoring. GASTROINTESTINAL: Denies any type of dysphagia to either liquids or solids. De nies nausea, vomiting, pyrosis, early satiety, abdominal pain, diarrhea, constipation, or changes in stool consistency or caliber. Denies coffee-ground emesis, hematemesis, hematochezia, or melanotic stools. GENITOURINARY: Denies frequency, urgency, nocturia, hematuria or incontinence (Storage/Irritative symptoms.) Low urinary stream, straining to void, urinary intermittency or hesitancy, splitting of the voiding stream, terminal dribbling. ENDOCRINOLOGIC: Denies polyuria, polydipsia, polyphagia or heat/cold intolerances. HEMATOLOGIC: Denies thrombophilia/previous clots, or coagulopathy/bleeding disorders. ONCOLOGIC: Denies personal history of malignancy. DERMATOLOGIC: Denies rashes or pruritus. PSYCHIATRIC: Denies any suicidal or homicidal ideation. Denies hallucinations. PHYSICAL EXAM GENERAL APPEARANCE: The patient is awake, alert, and oriented, in no acute cardiopulmonary distress. NEUROLOGICAL: Cranial nerves II-XII grossly intact. Motor is 5/5 in bilateral upper and lower extremities proximal to distal. No sensory deficits. HEENT: Face is symmetric. Pupils are equal and reactive. Extraocular movements are intact. NECK: Supple. No JVD. No thyromegaly. No submental, submandibular, pre- /postauricular, occipital or supraclavicular lymphadenopathy. CHEST: Normal chest expansion. No Telemetry. LUNGS: Absence of any rales, rhonchi or any wheezing. CARDIOVASCULAR: Regular. S1 and S2 normal. No appreciable rubs, murmurs or gallops. ABDOMEN: Soft, nontender, and nondistended. There is no rebound, voluntary guarding, or rigidity. : Deferred. No Whitmore. EXTREMITIES: Non-edematous and not cyanotic. No clubbing. Good capillary refill. SKIN: No skin breakdown. Vital Signs (last 8hr) Date Time Temp Pulse Resp B/P (MAP) Pulse Ox O2 Delivery O2 Flow Rate FiO2 07/17/24 11:32 98.2 57 18 101/51 97 Room Air 21 07/17/24 07:20 98.2 58 18 118/57 96 Room Air 21 LABS: Laboratory: Test 07/17/24 11:12 07/17/24 04:11 07/16/24 08:24 Range/Units Whole Blood Glucose 214 #H 70-110 MG/DL White Blood Count 8.7 4.8-10.8 K/uL Red Blood Count 2.50 L 4.50-6.20 MIL/uL Hemoglobin 8.1 L 14.0-18.0 g/dL Hematocrit 23.4 L 42-54 % Mean Corpuscular Volume 93.6 79-99 fL Mean Corpuscular Hemoglobin 32.4 27.0-33.0 pg Mean Corpuscular Hemoglobin Concent 34.6 32.0-36.0 g/dL Red Cell Distribution Width 12.7 11.0-15.5 % Platelet Count 190 130-400 K/uL Mean Platelet Volume 10.0 7.5-10.5 fL Nucleated Red Blood Cells 0.0 0.0-0.19 % Sodium Level 146 H 136-145 mmol/L Potassium Level 3.3 L 3.5-5.1 mmol/L Chloride Level 110 101-111 mmol/L Carbon Dioxide Level 28 21-32 mmol/L Blood Urea Nitrogen 14 7-18 mg/dL Creatinine 1.1 0.5-1.3 mg/dL Glomerular Filtration Rate Calc 70 >90 mL/min Random Glucose 98 # 70-105 mg/dL Total Calcium 8.0 L 8.5-10.1 mg/dL Magnesium Level 1.60 L 1.80-2.40 mg/dL Immature Granulocyte % (Auto) 0.4 0-1 % Neutrophils (%) (Auto) 83.1 H 40.0-77.0 % Lymphocytes (%) (Auto) 9.7 L 21.0-51.0 % Monocytes (%) (Auto) 6.4 3.0-13.0 % Eosinophils (%) (Auto) 0.2 0.0-8.0 % Basophils (%) (Auto) 0.2 0.0-5.0 % Neutrophils # (Auto) 8.4 H 1.8-7.7 K/uL Lymphocytes # (Auto) 1.0 1.0-4.8 K/uL Monocytes # (Auto) 0.7 0.1-1.0 K/uL Eosinophils # (Auto) 0.02 0.00-0.70 K/uL Basophils # (Auto) 0.02 0.00-0.20 K/uL Absolute Immature Granulocyte (auto 0.04 0-1 K/uL White Cell Morphology Comment See comments Total Bilirubin 0.2 0.2-1.0 mg/dL Aspartate Amino Transf (AST/SGOT) 14 10-37 U/L Alanine Aminotransferase (ALT/SGPT) 17 12-78 U/L Alkaline Phosphatase 68 50-136 U/L Total Protein 6.6 6.0-8.3 g/dL Albumin 2.6 L 3.5-5.0 g/dL Current Medications Medications (Trade) Dose Ordered Sig/Jacy Route PRN Reason Start Time Stop Time Status Last Admin Dose Admin Acetaminophen (TYLenol 325MG TAB) 650 mg Q6H PRN PO TEMPERATURE GREATER THAN 101.5 07/15/24 00:30 08/14/24 00:29 Atorvastatin Calcium (LIPItor 20MG) 20 mg HS PO 07/16/24 21:00 08/15/24 20:59 07/16/24 20:35 20 MG Bupropion HCl (WellBUTrin SR 150MG) 150 mg DAILY PO 07/16/24 09:00 08/15/24 08:59 07/17/24 10:22 150 MG Famotidine (Pepcid 20mg Vial) 20 mg DAILY IV 07/15/24 09:00 08/14/24 08:59 07/17/24 10:22 20 MG Hydromorphone HCl (DiLAUDid 0.5MG INJ) 0.5 mg Q6H PRN IVP SEVERE PAIN (7-10) 07/15/24 13:30 07/20/24 13:29 Insulin Human Regular (humuLIN R 100 UNIT/ML 3ML) INSULIN SLIDING SCAL... ACHS SQ 07/17/24 07:30 08/16/24 07:29 Lactated Ringer's 1,000 ml @ 75 mls/hr [id number] IV 07/15/24 00:30 08/14/24 00:29 07/16/24 21:51 75 MLS/HR Magnesium Sulfate 50 ml @ 0 mls/hr PROTOCOL IV 07/15/24 11:30 08/14/24 11:29 07/17/24 06:16 15 MLS/HR Metoprolol Succinate (TopROL XL) 50 mg DAILY PO 07/16/24 09:00 08/15/24 08:59 07/16/24 08:50 50 MG Morphine Sulfate (morPHINE 2MG SYG) 2 mg Q4H PRN IVP MODERATE PAIN (4-6) 07/14/24 23:30 07/21/24 23:29 07/15/24 12:25 2 MG Ondansetron HCl (zoFRAN 4MG INJ) 4 mg Q6H PRN IV NAUSEA/VOMITING 07/15/24 00:30 08/14/24 00:29 Ondansetron HCl (zoFRAN 4MG INJ) 4 mg Q6H PRN IVP NAUSEA/VOMITING 07/14/24 23:30 07/15/24 00:10 DC Pharmacy Profile Note (Lace Assessment) 1 each AD MISC 07/15/24 14:00 07/15/24 13:53 DC Potassium Chloride 100 ml @ 100 mls/hr AD PRN IV POTASSIUM PROTOCOL 07/17/24 06:00 08/16/24 05:59 Potassium Chloride (K-Dur/Klor-Con 20meq) 20 meq AD PRN PO POTASSIUM PROTOCOL 07/17/24 06:00 08/16/24 05:59 07/17/24 06:15 20 MEQ Potassium Chloride (KCl 10% Elixir 20meq/15ml) 20 meq AD PRN PO POTASSIUM PROTOCOL 07/17/24 06:00 08/16/24 05:59 Sacubitril/ Valsartan (Entresto 97 Mg-103 Mg Tablet) 1 each DAILY PO 07/16/24 09:00 08/15/24 08:59 07/16/24 08:50 1 EACH DIAGNOSTICS / RADIOLOGY: [ ] ASSESSMENT: Hemorrhagic radiation cystitis, POA Acute Urinary retention secondary to Whitmore catheter obstruction with blood clots, POA-status post cystourethroscopy with clot evacuation on 07/15/2024 Mild bilateral hydroureteronephrosis, POA Acute blood loss anemia, POA Diabetes mellitus type 2, POA Chronic Whitmore's catheter, POA Chronic problem list: BPH, prostate CA s/p prostatectomy and radiotherapy , skin CA, CHF, HDL, left BBB, heart murmur, HTN, and DM Penile urethral stricture Incontinence PLAN: Hemorrhagic radiation cystitis, POA Acute Urinary retention secondary to Whitmore catheter obstruction with blood clots, POA-status post cystourethroscopy with clot evacuation on 07/15/2024 Slow CBI Irrigation with Alum Pending urology recommendations for discharge with possible home health for evacuation of clots Patient is requested to stop Aspirin Mild bilateral hydroureteronephrosis, POA Acute blood loss anemia, POA Hemoglobin at 8.8 Patient with iron-deficiency anemia we will treat with IV iron Continue monitor H and H Diabetes mellitus type 2, POA Stable blood sugars Chronic Whitmore's catheter, POA Urinalysis negative ATTESTATION BY PHYSICIAN I have seen and examined the patient. I reviewed the documentation, medical de cision making, and treatment plan as noted by the resident provider above. I agree with the findings and plan of care. Ttii Hampton MD, ANCHU A MD July 17, 2024 12:45
[2024-07-17] MEDS ORDERED: AMINOCAPROIC ACID IV SCH (13:00)
[2024-07-17] MEDS ORDERED: NACL 0.9% IV SCH (13:00)
[2024-07-17 16:40] LABS: HEMATOCRIT 23.3 % (42-54)
--- NOTE | 2024-07-17 17:43 | NUR ---
DC PLAN DELAY DUE TO SEVERAL FACTORS. ONE CBI STILL RUNNING. NEED TO BE DISCONTINUED PRIOR TO DC HOME. NORMALLY NEEDS TO BE CLAPPED AND MONITORED FOR NO NEW HEMATURIA. THERE IS ALSO A MEDICATION THAT DR. ROMERO WANTS TO BE GIVEN TO PATIENT PRIOR TO DC. IT MIGHT NOT BE CARRIED AND ACCORDING TO NURSE IT IS TO BE GIVEN IN OR CAN NOT BE DONE AT BEDSIDE. DR. ROMERO ALSO WANT PATIENT TO BE SET UP FOR HYPERBARIC O2 THERAPIES PRIOR TO DC. FROM READING ALL THE NOTES DIAGNOSIS WAS FOR RADIATION CYSTITIS. CM CALLED THE [place] SAID WOULD NEED FORM FILLED OUT AND SENT TO THEM. CALLED DR. AGUILLON ABOUT LENGTH OF NEED OR HOW OFTEN SINCE SHE HAS BEEN TALKING TO DR. ROMERO. SAID DID NOT KNOW. CM CALLED DR. ROMERO OFFICE WAS TOLD HE IS NOT IN OFFICE TODAY. WOULD NOT GIVE CM NUMBER TO REACH MD AND SAID WOULD REPLAY BACK TOMORROW MORNING. CM LET DR. AGUILLON KNOW AND SEE IF SHE COULD REACH DR. ROMERO. REPLY BACK WAS 40 VISITS. CM REACHED OUT TO [facility] SAID THAT RADITION CYSTITIS IS NOT A COVERED DIAGNOSIS. SENT OVER A PACKET FOR HBO CONDITIONS. CM HAD [facility]IOBE CHECK TO SEE IF A DIAGNOSIS COULD BE LOCATED WENT WITH N30.41 IRRADITION CYSTIS WITH HEMATURIA. CM LET DR. AGUILLON KNOW THAT FORM NEEDED TO BE SIGNED AND WHICH DIAGNOSIS WOULD QUALIFY SAID WOULD PLACE IN HER NOTE. LEFT STICKY WITH FORMS FLAGGED IN CHART. LET NURSE KNOW OF WERE FORMS ARE ALSO LET DR. AGUILLON KNOW SAID WOULD GO UP THERE TO SIGN FORMS. CM WILL CONTINUE TO FOLLOW. Addendum: 07/17/24 at 1807 by FINESSE PICKETT RN CM Amended: Links added.
[2024-07-18 03:06] VITALS: BP 100/50; PULSE 60; RESP 16; TEMP 98
[2024-07-18 05:33] LABS: HEMATOCRIT 24.2 % (42-54); MEAN CORPUSCULAR HEMOGLOBIN 31.9 pg (27.0-33.0); MEAN CORPUSCULAR HGB CONC 33.5 g/dL (32.0-36.0); MEAN CORPUSCULAR VOLUME 95.3 fL (79-99); RED BLOOD CELL COUNT(AUTO) 2.54 MIL/uL (4.50-6.20); RED CELL DISTRIBUTION WIDTH 13.1 % (11.0-15.5); WHITE BLOOD COUNT (AUTO) 7.7 K/uL (4.8-10.8)
[2024-07-18 06:11] LABS: POTASSIUM 4.3 mmol/L (3.5-5.1)
--- NOTE | 2024-07-18 07:46 | DS ---
Discharge Summary Hospital Course Summary: Date of service : 07.20.24 74-year-old male with a history of BPH, prostate CA s/p prostatectomy, penile urethral stricture , urinary incontinence, skin CA, CHF, HDL, left BBB, heart murmur, HTN, and DM who presented to [facility] for evaluation of hematuria and urinary retention secondary to blood clots. Cystoscopy was performed several weeks ago with a Whitmore placed. Since then, the patient has been admitted to the emergency room multiple times to have the Whitmore replaced because of blood clots. He was recently admitted to [facility] from 07/06/2024 and was discharged on 07/12/2024 after undergoing a cysto urethroscopy with evacuation of blood clots and fulguration on 07/11/2024 for hemorrhagic radiation cystitis. Labs and vitals at the time of admission are unremarkable. CT of abdomen and pelvis shows large amount of likely clots demonstrated in the bladder, bladder grossly distended, mild bilateral hydroureteronephrosis. He was admitted for further evaluation and management. 07/15/2024: Patient seen in room with RN. He was having trouble with Whitmore not draining urine due to possibly retained clot obstructing. He was not able to tolerate any irrigation. I called and discussed with Dr. Romero. He will be coming in to evaluate the patient to soon as he can. Meanwhile he said it is okay to give pain medications I will he was some morphine and Dilaudid and await urological intervention. 07/16/2024: Seen resting comfortably on his bed. Patient underwent cystourethroscopy with evacuation of multiple obstructing clots and fulguration of the bladder neck and trigone. He was also treated with tranexamic acid for bleeding control. He continues to be on slow CBI. Pending Alum bladder irrigation. Urine in his Whitmore bag appears light pink and patient denies any abdominal pain at this time. 07/17/2024: Patient seen resting comfortably on his bed. Patient had1 episode of hematuria yesterday-he is draining clear urine in the Whitmore's bag. Pharmacy does not have alum-we will request intravesical administration of Amicar 2.5 g. As per the Urology recommendations, patient will be discharged from the hospital for further hyperbaric oxygen treatment at the outpatient setting. 5.7.25: Patient is seen resting comfortably on his bed . No further episodes of hematuria . Pharmacy doesnot have alum nor CBI with Amicar was executed due to hospital policy restrictions . The same is conveyed to urologist .As per the urologist , patient will be having recurring episodes of hematuria due to the underlying radiation cystitis . Patient is aware of the same . Patient is stable at the time of discharge.Patient is required to follow up for outpatient [facility] 5.25: Patient developed hematuria towards the time of discharge . This time, hospital could arrange intravesical administration of Amicar and the same was administered twice. His hemoglobin remained stable . Patient tolerated the procedure well.As per the urologist , patient will be having recurring episodes of hematuria due to the underlying radiation cystitis . Patient is aware of the same . Patient is stable at the time of discharge.Patient is required to follow up for outpatient hyperbaric oxygen treatment [facility]. Patient is required to follow up regularly in the hospital emergency room for flushing of catheter in the event of an impending urinary obstruction till he gets an appointment for hyperbaric oxygen therapy. Drawing In Hand(s): CONSULTATION NOTE Date of Service: July 15, 2024 Reason for Consultation: Gross hematuria with clot retention/radiation cystitis Requesting Physician: Dr Hampton HISTORY OF PRESENT ILLNESS: This gentleman has a history of prostate cancer was treated with prostatectomy followed by adjuvant radiotherapy for recurrent disease. This was several years back. He was being managed by urologist in [place]. We recently met him as a consult here at [facility] presented with such episode. Failed conservative treatment on the floor. Was taken to the operating room on 07/10/2024 for cystoscopy with clot evacuation and fulguration of the bladder. Unfortunately because this hospital has nothing by the monopolar system the fulguration was not very effective. We discussed with the family body options. He was managed on the floor few days afterwards and discharged home with a Whitmore catheter to keep his bladder decompressed. Presents to the hospital because the catheter is clogged nothing is coming out. He is having excruciating pain. A CT scan did show clot material in the bladder. Was admitted to the floor with a urological consult. REVIEW OF SYSTEMS CONSTITUTIONAL: Denies fever, chills, or fatigue. HEAD/FACE: No signs of trauma. EENT: Denies eye pain, blurred vision, double vision, or light sensitivity. RESPIRATORY: Denies shortness of breath, cough, wheezing CARDIOVASCULAR: Denies chest pain, palpitation, syncope GASTROINTESTINAL/ABDOMINAL: Denies abdominal pain, constipation, diarrhea, nausea or vomiting GENITOURINARY: A gross hematuria with clot retention MUSCULOSKELETAL: Denies joint pain, tenderness, or trauma. INTEGUMENTARY: Denies rash or itchiness NEUROLOGICAL/PSYCH: Denies anxiety, depression, heat or cold intolerance. PAST MEDICAL HISTORY: Prostate cancer Skin cancer CAD PAST SURGICAL HISTORY: Cardiac catheterizations Surgical prostatectomy Adjuvant radiotherapy PAST SOCIAL HISTORY: Denies any smoking Denies ethanol Denies recreational drugs FAMILY HISTORY: Noncontributory to presenting complaint Coded Allergies: No Known Drug Allergies (Verified Allergy, Unknown, 03/31/21) PHYSICAL EXAM EYES: Anicteric. Pupils equal and reactive. HENT: No oral thrush seen, moist Oral mucosa NECK: Supple, no JVD or thyromegaly. LUNGS: Good air entry. No rales, no rhonchi. CARDIOVASCULAR: S1, S2 regular. No murmur heard. ABDOMEN: Soft, non tender, bowel sounds present, no organomegaly CENTRAL NERVOUS SYSTEM: Awake, alert, oriented x 3. No focal deficits. SKIN: No rashes, no swelling. LYMPHATICS: No peripheral lymphadenopathy MUSCULOSKELETAL: No joint swelling, erythema or tenderness. EXTREMITIES: No cyanosis or clubbing BACK: No deformity, no pressure ulcer. GENITOURINARY: Has a large bore Whitmore catheter in place no CBI is running almost nothing is draining. Vital Sign (Last 24 Hours) 07/14/24 07/15/24 07/15/24 22:30 04:00 12:00 Temp 97.9 Pulse 73 Resp 19 B/P (MAP) 120/57 Pulse Ox 96 O2 Delivery Room Air O2 Flow Rate 0 FiO2 21 Intake & Output (last 24hrs) 07/14/24 07/14/24 07/15/24 15:00 23:00 07:00 Output Total 350 ml Balance -350 ml LABS: Laboratory: Test 07/15/24 11:01 07/15/24 06:33 07/14/24 17:03 Range/Units Whole Blood Glucose 130 H 70-110 MG/DL White Blood Count 11.0 H 4.8-10.8 K/uL Red Blood Count 3.19 L 4.50-6.20 MIL/uL Hemoglobin 10.1 L 14.0-18.0 g/dL Hematocrit 29.7 L 42-54 % Mean Corpuscular Volume 93.1 79-99 fL Mean Corpuscular Hemoglobin 31.7 27.0-33.0 pg Mean Corpuscular Hemoglobin Concent 34.0 32.0-36.0 g/dL Red Cell Distribution Width 12.8 11.0-15.5 % Platelet Count 207 130-400 K/uL Mean Platelet Volume 9.8 7.5-10.5 fL Immature Granulocyte % (Auto) 0.5 0-1 % Neutrophils (%) (Auto) 75.7 40.0-77.0 % Lymphocytes (%) (Auto) 14.8 L 21.0-51.0 % Monocytes (%) (Auto) 7.9 3.0-13.0 % Eosinophils (%) (Auto) 0.9 0.0-8.0 % Basophils (%) (Auto) 0.2 0.0-5.0 % Neutrophils # (Auto) 8.3 H 1.8-7.7 K/uL Lymphocytes # (Auto) 1.6 1.0-4.8 K/uL Monocytes # (Auto) 0.9 0.1-1.0 K/uL Eosinophils # (Auto) 0.10 0.00-0.70 K/uL Basophils # (Auto) 0.02 0.00-0.20 K/uL Absolute Immature Granulocyte (auto 0.06 0-1 K/uL Nucleated Red Blood Cells 0.0 0.0-0.19 % Prothrombin Time 10.9 9.6-11.6 SEC Prothromb Time International Ratio 1.03 0.85-1.15 Activated Partial Thromboplast Time 29.1 26.3-35.5 SEC Sodium Level 135 L 136-145 mmol/L Potassium Level 4.3 3.5-5.1 mmol/L Chloride Level 100 L 101-111 mmol/L Carbon Dioxide Level 24 21-32 mmol/L Blood Urea Nitrogen 16 7-18 mg/dL Creatinine 1.3 0.5-1.3 mg/dL Glomerular Filtration Rate Calc 57 >90 mL/min Random Glucose 158 H 70-105 mg/dL Total Calcium 8.7 8.5-10.1 mg/dL Phosphorus Level 4.7 2.5-4.9 mg/dL Magnesium Level 1.70 L 1.80-2.40 mg/dL Urine Color LIGHT-YELLOW YELLOW Urine Appearance CLEAR CLEAR Urine pH 6.0 5.0-8.0 Urine Specific [place] 1.010 1.001-1.031 Urine Protein NEGATIVE NEGATIVE mg/dL Urine Glucose (UA) TRACE H NEGATIVE mg/dL Urine Ketones NEGATIVE NEGATIVE mg/dL Urine Occult Blood NEGATIVE NEGATIVE Urine Nitrate NEGATIVE NEGATIVE Urine Bilirubin NEGATIVE NEGATIVE mg/dL Urine Urobilinogen 2.0 H 0.2-1.0 mg/dL Urine Leukocyte Esterase NEGATIVE NEGATIVE Zhou/uL Urine RBC 2-5 H 0-1 /HPF Urine WBC 2-5 H 0-1 /HPF Urine Squamous Epithelial Cells RARE 0-2 /HPF Urine Bacteria None None Seen /HPF DIAGNOSTICS / RADIOLOGY: CT abdomen and pelvis without contrast from 07/14/2024 does show a large clot and golfing the balloon of the Whitmore catheter. Bladder is distended. 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 Because of the clot material in the bladder, we take him downstairs to the operating room for clot evacuation. We could have done this bedside but it will be very painful for him. 2. Once the clots were evacuated, we will run some medications in his bladder. Starting with TXA and then followed by intravesical alum if it is available in his facility. 60 minutes spent to complete a consult more than half of the time spent at bedside in counseling and coordination of care and addressing questions posed by patient and family present at bedside, some time was spent discussing with members of his care team, the rest of the time was spent reviewing medical records past and present as well as imaging and laboratory data. NITHYA ROMERO MD July 15, 2024 14:06 Electronically Signed by: NITHYA ROMERO MD07/15/24 1406 Electronically Co-Signed by: Procedure(s): Operative Note: DATE OF PROCEDURE: 07/15/24 SURGEON: NITHYA ROMERO MD GEOMORPHOLOGIST: Operating room staff ANESTHESIA: General anesthesia ANESTHESIOLOGIST/CUSTOMER EXPERIENCE SPECIALIST: Anesthesia staff PREOPERATIVE DIAGNOSIS: 1. Recurrent gross hematuria with clot retention 2. Hemorrhagic/radiation cystitis POSTOPERATIVE DIAGNOSIS: 1. Recurrent gross hematuria with clot retention 2. Hemorrhagic/radiation cystitis SYNOPSIS: Large clots identified in the bladder, evacuated and removed. Mucosal oozing noted. Very judicious coagulation with the monopolar system was performed. Instillation of TXA into the bladder. PROCEDURE: 1. 35240 Cystourethroscopy with evacuation of multiple obstructing clots 2. 17928 Cystourethroscopy with fulguration of the bladder neck and trigone 3. 24359 Instillation of TXA for bleeding control ESTIMATED BLOOD LOSS: Blood clots evacuated from the bladder INDICATIONS: This is a 74-year-old man with a history of prostate cancer who was dealing with recurrent gross hematuria with clot obstruction. He has developed radiation cystitis. Was recently seen in his hospital and taken to the operating room at the end of June of 2024 for clot evacuation. Discharged home with a Whitmore catheter in place, returned last night with a Whitmore catheter has clogged. He was managed temporarily with a CBI on the floor but without much improvement. He has been brought to the operating room for clot evacuation, fulguration and instillation of TXA into the bladder DESCRIPTION OF PROCEDURE: Patient identified in the holding area, consent verified. He received Ancef prophylaxis and taken to the operating suite. He was placed in the supine position, after induction he underwent general anesthesia. Next it was placed in low lithotomy, his genitalia was prepped he was draped in a time-out was performed. We went with a 22 [place] cystoscope with a 30 degree endoscope. Urethra was normal except the posterior urethra which was very raggedy suggestive of radiation changes. We entered the bladder. Multiple clots identified. We used a Luc syringe to systematically evacuate this clot. After several flushes of the bladder we had successfully evacuated all the clots and visualization improved. There was some mucosal oozing that we identified. We switched to a rollerball bipolar collide timber girdler and were able to coagulate some of these areas in a very judicious fashion not to stir up further bleeding. Once we are satisfied with the coagulation, placed a22 South African three way Whitmore catheter and then a infused a 60 mL infusion of 1000 mg of TXA into the bladder. We clamped the Whitmore catheter with the anticipated dwell time of 20 minutes. After that the Whitmore catheter will be uptake opened and CBI will be continued. There were no complications. Plan: The plan is to transfer him back to the floor and run CBI slowly. We have ordered alum bladder irrigation from the pharmacy. If that is available that will also be ran into his bladder to help. NITHYA ROMERO MD July 15, 2024 16:24 Electronically Signed by: NITHYA ROMERO MD07/15/24 1624 Electronically Co-Signed by: Assessment/Plan: DISCHARGE DIAGNOSIS : Hemorrhagic radiation cystitis, POA Acute Urinary retention secondary to Whitmore catheter obstruction with blood clots, POA-status post cystourethroscopy with clot evacuation on 07/15/2024 Mild bilateral hydroureteronephrosis, POA Acute kidney injury , POA Acute blood loss anemia, POA Diabetes mellitus type 2, POA Chronic Whitmore's catheter, POA Chronic problem list: BPH, prostate CA s/p prostatectomy and radiotherapy , skin CA, CHF, HDL, left BBB, heart murmur, HTN, and DM Penile urethral stricture Incontinence ASSESSMENT : Hemorrhagic radiation cystitis, POA with recurrent hematuria . Acute Urinary retention secondary to Whitmore catheter obstruction with blood clots, POA-status post cystourethroscopy with clot evacuation on 07/15/2024 treated with Slow CBI s/p Irrigation with Tranexamic acid s/p bladder irrigation with Amicar x 2 Patient is requested to stop Aspirin Patient will continue HBO2 therapy as outpatient I have discussed with the patient the possibility of hematuria episodes again and if it causes obstruction - he needs to come to the ER and get it flushed out to relieve obstruction . Please follow up with primary care doctor to check hemoglobin levels . Mild bilateral hydroureteronephrosis, POA BRYAN, POA- resolved Creat 1.0 at the time of discharge Acute blood loss anemia, POA Hemoglobin at 8.8 Patient with iron-deficiency anemia - treated with IV iron Please follow up with primary care doctor to check hemoglobin levels . Diabetes mellitus type 2, POA Stable blood sugars Chronic Whitmore's catheter, POA Urinalysis negative Discharge Instructions: DATE OF ADMISSION: 07.14.24 DATE OF DISCHARGE: 07.18.24 DISPOSITION: HOME CONDITION: Medically stable CONSULTANTS: UROLOGY FOLLOW UP APPOINTMENTS: Follow up with your primary care doctor in 2 to 3 days . Follow up outpatient for Hyperbaric oxygen therapy as scheduled . PROCEDURES: report attached to summary IMAGING: report attached to summary MICROBIOLOGY: report attached to summary HOME MEDICATIONS: see med rec NEW MEDICATIONS: See medication reconciliation EMERGENCY INSTRUCTIONS: The patient was instructed to present to the nearest Emergency department or call 911 once their symptoms will return or worsen. Home Medications: Reported Medications Sacubitril/Valsartan (Entresto 97 mg-103 mg Tablet) 97 Mg-103 Mg Tablet, 1 TAB PO DAILY for 30 Days, #60 TAB 0 Refills 07/08/24 Bupropion HCl (Bupropion HCl Sr) 150 Mg Tablet.er, 1 TAB PO DAILY for 30 Days, #60 TAB 0 Refills 07/08/24 Metoprolol Succinate (Metoprolol Succinate) 50 Mg Tab.er.24h, 1 TAB PO DAILY for 30 Days, #30 TAB 0 Refills 07/08/24 Atorvastatin Calcium (LIPITOR) 40 Mg Tablet, 0.5 TAB PO HS for 30 Days, #30 TAB 0 Refills 07/08/24 Empagliflozin (Jardiance) 25 Mg Tablet, 1 TAB PO DAILY for 30 Days, #30 TAB 0 Refills 07/08/24 Time spent arranging discharge: 31-60 minutes ATTESTATION BY PHYSICIAN I have seen and examined the patient. I reviewed the documentation, medical decision making, and treatment plan as noted by the resident provider above. I agree with the findings and plan of care. Titi Hampton MD, ANCHU A MD July 18, 2024 07:46
[2024-07-18 08:00] VITALS: BP 123/60; PULSE 64; RESP 20; TEMP 98.4
[2024-07-18 12:00] VITALS: BP 124/57; PULSE 62; RESP 19; TEMP 98.2
--- NOTE | 2024-07-18 14:34 | NUR ---
PETE PLAN VISITED WITH PATIENT GOT CONSENT FOR [facility]. PACKET MADE AND [facility]AT[facility]. Addendum: 07/18/24 at 1436 by FINESSE PICKETT RN CM Amended: Links added.
--- NOTE | 2024-07-18 14:37 | NUR ---
PETE JOSHUA CHECKED FORMS NOT SIGNED YESTERDAY OR THIS MORNING. CALLED DR. JONES AND ASKED FOR FORMS TO BE SIGNED. DR. GREWAL SIGNED AFTER 1030 FILLED FORMS AND SENT TO ME AND TO [facility]. PER ME SAID IT COULD TAKE UP TO 72 HRS FOR [facility] TO REVIEW AND APPROVE. SPOKE TO [facility] REQUESTING EKG AND CHEST XRAY. Addendum: 07/18/24 at 1441 by FINESSE PICKETT RN CM Amended: Links added.
[2024-07-18 16:00] VITALS: BP 134/60; PULSE 63; RESP 18; TEMP 98.4
[2024-07-18] MEDS ORDERED: FERR-82 PO (16:36)
--- NOTE | 2024-07-18 17:00 | NUR ---
DC PLAN CM RECEIVED CALL FROM DR. AGUILLON. ASKED ABOUT [facility] AT HOME WITH [facility]. EXPLAINED THAT UNLESS OTHER DE JESUS ORDERED [facility] IS ONCE A WEEK OR ONCE A MONTH TO MONITOR AND TO CHANGE OUT IF ORDERED. SAID WOULD LIKELY NEED FLUSHES EVERY 24 TO 48 HRS. EXPLAINED CM WOULD NEED AN ORDER STATING THAT TO SEND TO HOME HEALTH. WITH OUT ORDER HOME HEALTH WILL NOT DO IT. DR ROMERO ALSO DID NOT WANT HOME HEALTH TO BE MESSING WITH IT. DR. AGUILLON AWARE. SECOND ISSUE PATIENT WAS STARTED ON CBI FOR ONE HOUR PASSED 3 CLOTS CURRENTLY IT IS DARK RED IN [place] BAG. PER MADDY NURSE DR. THRASHER HAD SAID IT JUST NEEDED ONE HOUR AND THEN COULD STILL GO HOME. THIRD ISSUE THE MEDICATION THAT DR. ROMERO WANTED GIVEN PRIOR TO DC STILL HAS NOT BEEN GIVEN. CM ESCALATED CASE TO [facility] CM. CM ALSO SPOKE TO MADDY NURSE ABOUT CONCERNS.
[2024-07-18] MEDS ORDERED: PHARMACY COMMUNICATION MISC SCH (17:30)
--- NOTE | 2024-07-18 17:50 | EKG ---
[facility] Test Date: 2024-07-18 Test Time: 17:43:52 Pat Name: RONAN BAUER Department: [facility] Room: 419 1 Gender: M [employer] Consultant: [id number] : 1950 Requested By: HENNA SY Order Number: [id number] Reading MD: Pravin Pederson Measurements Intervals [place] Rate: 68 P: 3 ID: [id number] QRS: -49 QRSD: 122 T: 42 QT: 466 QTc: 495 Interpretive Statements Sinus rhythm with premature supraventricular complexes Right bundle branch block Left anterior fascicular block Bifascicular block Compared to ECG 03/15/2023 15:26:12 Atrial premature complex(es) now present Bifascicular block now present Atrial fibrillation no longer present Electronically Signed On 07-18-2024 21:39:02 CDT by Pravin Pederson Please click the below link to view image of tracing.
[2024-07-18] MEDS: NACL 0.9% IV ONE ×2 (18:16)
[2024-07-18] MEDS: AMINOCAPROIC ACID IV ONE ×2 (18:16)
[2024-07-18] MEDS: aminoCAProic ACID 5,000MG VIAL IV ONE (18:17)
[2024-07-18 18:40] LABS: HEMATOCRIT 25.3 % (42-54)
[2024-07-18 20:00] VITALS: BP 144/66; PULSE 63; RESP 16; TEMP 98.3
[2024-07-18 20:10] VITALS: O2SAT 96
[2024-07-19] VITALS (8 sets, daily range): BP systolic 118–153; BP diastolic 57–87; PULSE 58–82; RESP 17–20; TEMP 98.2–98.5; O2SAT 98
[2024-07-19 05:14] LABS: MEAN CORPUSCULAR HGB CONC 33.2 g/dL (32.0-36.0); MEAN CORPUSCULAR VOLUME 96.5 fL (79-99); RED BLOOD CELL COUNT(AUTO) 2.59 MIL/uL (4.50-6.20); WHITE BLOOD COUNT (AUTO) 6.9 K/uL (4.8-10.8)
[2024-07-19 05:31] LABS: CREATININE 1.2 mg/dL (0.5-1.3); POTASSIUM 4.4 mmol/L (3.5-5.1)
--- NOTE | 2024-07-19 06:00 | PN ---
[facility] PROGRESS NOTE Date of Service: For Jul 18 2024 Time of Service: 6 pm SUBJECTIVE: 74-year-old male with a history of BPH, prostate CA s/p prostatectomy, penile urethral stricture , urinary incontinence, skin CA, CHF, HDL, left BBB, heart murmur, HTN, and DM who presented to [facility] for evaluation of hematuria and urinary retention secondary to blood clots. Cystoscopy was performed several weeks ago with a Whitmore placed. Since then, the patient has been admitted to the emergency room multiple times to have the Whitmore replaced because of blood clots. 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 Labs and vitals at the time of admission are unremarkable. CT of abdomen and pelvis shows large amount of likely clots demonstrated in the bladder, bladder grossly distended, mild bilateral hydroureteronephrosis. He was admitted for further evaluation and management. 07/15/2024: Patient seen in room with RN. He was having trouble with Whitmore not draining urine due to possibly retained clot obstructing. He was not able to tolerate any irrigation. I called and discussed with Dr. Watson. He will be coming in to evaluate the patient to soon as he can. Meanwhile he said it is okay to give pain medications I will he was some morphine and Dilaudid and await urological intervention. 07/16/2024: Seen resting comfortably on his bed. Patient underwent cystourethroscopy with evacuation of multiple obstructing clots and fulguration of the bladder neck and trigone. He was also treated with tranexamic acid for bleeding control. He continues to be on slow CBI. Pending Alum bladder irrigation. Urine in his Whitmore bag appears light pink and patient denies any abdominal pain at this time. 07/17/2024: Patient seen resting comfortably on his bed. Patient had1 episode of hematuria yesterday-he is draining clear urine in the Whitmore's bag. Pharmacy does not have alum-we will request intravesical administration of Amicar 2.5 g. As per the Urology recommendations, patient will be discharged from the hospital for further hyperbaric oxygen treatment at the outpatient setting. 5.7.25: Patient is seen resting comfortably on his bed . No further episodes of hematuria . Pharmacy doesnot have alum nor CBI with Amicar was executed due to hospital policy restrictions . The same is conveyed to urologist .As per the urologist , patient will be having recurring episodes of hematuria due to the underlying radiation cystitis . Patient is aware of the same . Patient is stable at the time of discharge.Patient is required to follow up for outpatient [facility] Addendum: 4 pm: At this time , I was informed that hospital could be able to administer Amicar CBI and order was placed for the same. Discharge was suspended . REVIEW OF SYSTEMS CONSTITUTIONAL: Denies fevers, chills, or night sweats. No unintentional weight loss reported. NEUROLOGICAL: Denies headache, amaurosis fugax, motor weakness, sensory deficit, vertigo/spinning sensation, gait abnormalities, or tremors. ENT: No hearing loss, otalgia, otorrhea, rhinitis, rhinorrhea, hoarseness, or sore throat. CARDIOVASCULAR: Denies any exertional angina, dyspnea on exertion, orthopnea, paroxysmal nocturnal dyspnea, palpitations, life-threatening arrhythmias, claudication. PULMONARY: Denies any shortness of breath, cough, phlegm/sputum, hemoptysis, pleuritic chest pain. SLEEP: Denies morning headaches, daytime somnolence or napping. Denies difficulty falling asleep, staying asleep, waking from sleep. Denies knowledge of snoring. GASTROINTESTINAL: Denies any type of dysphagia to either liquids or solids. Denies nausea, vomiting, pyrosis, early satiety, abdominal pain, diarrhea, constipation, or changes in stool consistency or caliber. Denies coffee-ground emesis, hematemesis, hematochezia, or melanotic stools. GENITOURINARY: Denies frequency, urgency, nocturia, hematuria or incontinence (Storage/Irritative symptoms.) Low urinary stream, straining to void, urinary intermittency or hesitancy, splitting of the voiding stream, terminal dribbling. ENDOCRINOLOGIC: Denies polyuria, polydipsia, polyphagia or heat/cold intolerances. HEMATOLOGIC: Denies thrombophilia/previous clots, or coagulopathy/bleeding disorders. ONCOLOGIC: Denies personal history of malignancy. DERMATOLOGIC: Denies rashes or pruritus. PSYCHIATRIC: Denies any suicidal or homicidal ideation. Denies hallucinations. PHYSICAL EXAM GENERAL APPEARANCE: The patient is awake, alert, and oriented, in no acute cardiopulmonary distress. NEUROLOGICAL: Cranial nerves II-XII grossly intact. Motor is 5/5 in bilateral upper and lower extremities proximal to distal. No sensory deficits. HEENT: Face is symmetric. Pupils are equal and reactive. Extraocular movements are intact. NECK: Supple. No JVD. No thyromegaly. No submental, submandibular, pre- /postauricular, occipital or supraclavicular lymphadenopathy. CHEST: Normal chest expansion. No Telemetry. LUNGS: Absence of any rales, rhonchi or any wheezing. CARDIOVASCULAR: Regular. S1 and S2 normal. No appreciable rubs, murmurs or gallops. ABDOMEN: Soft, nontender, and nondistended. There is no rebound, voluntary guarding, or rigidity. : Deferred. No Whitmore. EXTREMITIES: Non-edematous and not cyanotic. No clubbing. Good capillary refill. SKIN: No skin breakdown. Vital Signs (last 8hr) Date Time Temp Pulse Resp B/P (MAP) Pulse Ox O2 Delivery O2 Flow Rate FiO2 07/19/24 04:00 98.2 60 18 123/57 93 Room Air 07/19/24 00:00 98.2 66 20 141/64 95 Room Air LABS: Laboratory: Test 07/19/24 05:37 07/19/24 05:09 Range/Units Whole Blood Glucose 166 H 70-110 MG/DL White Blood Count 6.9 4.8-10.8 K/uL Red Blood Count 2.59 L 4.50-6.20 MIL/uL Hemoglobin 8.3 L 14.0-18.0 g/dL Hematocrit 25.0 L 42-54 % Mean Corpuscular Volume 96.5 79-99 fL Mean Corpuscular Hemoglobin 32.0 27.0-33.0 pg Mean Corpuscular Hemoglobin Concent 33.2 32.0-36.0 g/dL Red Cell Distribution Width 13.0 11.0-15.5 % Platelet Count 196 130-400 K/uL Mean Platelet Volume 9.7 7.5-10.5 fL Nucleated Red Blood Cells 0.0 0.0-0.19 % Sodium Level 143 136-145 mmol/L Potassium Level 4.4 3.5-5.1 mmol/L Chloride Level 107 101-111 mmol/L Carbon Dioxide Level 29 21-32 mmol/L Blood Urea Nitrogen 8 7-18 mg/dL Creatinine 1.2 0.5-1.3 mg/dL Glomerular Filtration Rate Calc 63 >90 mL/min Random Glucose 148 H 70-105 mg/dL Total Calcium 8.7 8.5-10.1 mg/dL Current Medications Medications (Trade) Dose Ordered Sig/Jacy Route PRN Reason Start Time Stop Time Status Last Admin Dose Admin Acetaminophen (TYLenol 325MG TAB) 650 mg Q6H PRN PO TEMPERATURE GREATER THAN 101.5 07/15/24 00:30 08/14/24 00:29 Aminocaproic Acid 2500 mg/Sodium Chloride 200 ml @ 0 mls/hr AD IV 07/17/24 13:00 07/17/24 12:48 DC Atorvastatin Calcium (LIPItor 20MG) 20 mg HS PO 07/16/24 21:00 08/15/24 20:59 07/18/24 20:06 20 MG Bupropion HCl (WellBUTrin SR 150MG) 150 mg DAILY PO 07/16/24 09:00 08/15/24 08:59 07/18/24 10:11 150 MG Famotidine (Pepcid 20mg Vial) 20 mg DAILY IV 07/15/24 09:00 08/14/24 08:59 07/18/24 10:11 20 MG Hydromorphone HCl (DiLAUDid 0.5MG INJ) 0.5 mg Q6H PRN IVP SEVERE PAIN (7-10) 07/15/24 13:30 07/20/24 13:29 Insulin Human Regular (humuLIN R 100 UNIT/ML 3ML) INSULIN SLIDING SCAL... ACHS SQ 07/17/24 07:30 08/16/24 07:29 07/18/24 20:10 8 UNIT Lactated Ringer's 1,000 ml @ 75 mls/hr [id number] IV 07/15/24 00:30 08/14/24 00:29 07/17/24 18:04 75 MLS/HR Magnesium Sulfate 50 ml @ 0 mls/hr PROTOCOL IV 07/15/24 11:30 08/14/24 11:29 07/17/24 06:16 15 MLS/HR Metoprolol Succinate (TopROL XL) 50 mg DAILY PO 07/16/24 09:00 08/15/24 08:59 07/16/24 08:50 50 MG Morphine Sulfate (morPHINE 2MG SYG) 2 mg Q4H PRN IVP MODERATE PAIN (4-6) 07/14/24 23:30 07/21/24 23:29 07/18/24 16:13 2 MG Ondansetron HCl (zoFRAN 4MG INJ) 4 mg Q6H PRN IV NAUSEA/VOMITING 07/15/24 00:30 08/14/24 00:29 Ondansetron HCl (zoFRAN 4MG INJ) 4 mg Q6H PRN IVP NAUSEA/VOMITING 07/14/24 23:30 07/15/24 00:10 DC Pharmacy Profile Note (Lace Assessment) 1 each AD MISC 07/15/24 14:00 07/15/24 13:53 DC Pharmacy Profile Note (Pharmacy Communication) 1 each ONCE MISC 07/18/24 17:30 07/18/24 17:46 DC Potassium Chloride 100 ml @ 100 mls/hr AD PRN IV POTASSIUM PROTOCOL 07/17/24 06:00 08/16/24 05:59 Potassium Chloride (K-Dur/Klor-Con 20meq) 20 meq AD PRN PO POTASSIUM PROTOCOL 07/17/24 06:00 08/16/24 05:59 07/17/24 19:32 20 MEQ Potassium Chloride (KCl 10% Elixir 20meq/15ml) 20 meq AD PRN PO POTASSIUM PROTOCOL 07/17/24 06:00 08/16/24 05:59 Sacubitril/ Valsartan (Entresto 97 Mg-103 Mg Tablet) 1 each DAILY PO 07/16/24 09:00 08/15/24 08:59 07/17/24 09:00 1 EACH DIAGNOSTICS / RADIOLOGY: [ ] DISCHARGE DIAGNOSIS : Hemorrhagic radiation cystitis, POA Acute Urinary retention secondary to Whitmore catheter obstruction with blood clots, POA-status post cystourethroscopy with clot evacuation on 07/15/2024 Mild bilateral hydroureteronephrosis, POA Acute kidney injury , POA Acute blood loss anemia, POA Diabetes mellitus type 2, POA Chronic Whitmore's catheter, POA Chronic problem list: BPH, prostate CA s/p prostatectomy and radiotherapy , skin CA, CHF, HDL, left BBB, heart murmur, HTN, and DM Penile urethral stricture Incontinence ASSESSMENT : Hemorrhagic radiation cystitis, POA with recurrent hematuria . Acute Urinary retention secondary to Whitmore catheter obstruction with blood clots, POA-status post cystourethroscopy with clot evacuation on 07/15/2024 treated with Slow CBI s/p Irrigation with Tranexamic acid Patient is requested to stop Aspirin Patient will continue HBO2 therapy as outpatient I have discussed with the patient the possibility of hematuria episodes again and if it causes obstruction - he needs to come to the ER and get it flushed out to relieve obstruction . Please follow up with primary care doctor to check hemoglobin levels . Mild bilateral hydroureteronephrosis, POA BRYAN, POA- resolved Creat 1.0 at the time of discharge Acute blood loss anemia, POA Hemoglobin at 8.8 Patient with iron-deficiency anemia - treated with IV iron Please follow up with primary care doctor to check hemoglobin levels . Diabetes mellitus type 2, POA Stable blood sugars Chronic Whitmore's catheter, POA Urinalysis negative ATTESTATION BY PHYSICIAN I have seen and examined the patient. I reviewed the documentation, medical decision making, and treatment plan as noted by the resident provider above. I agree with the findings and plan of care. Titi Hampton MD, ANCHU A MD July 19, 2024 05:59
--- NOTE | 2024-07-19 09:16 | NUR ---
[facility] Care Coordination Call Case reviewed and discuss with the [facility] team. DCP remains to home with [facility] for Whitmore Catheter management.
--- NOTE | 2024-07-19 09:36 | NUR ---
PETE PLAN VISITED WITH PATIENT. PATIENT WILL BE STAYING WITH SON AT [address] [facility] [place] [address] ON [place] CM CALLED [facility] [phone] SPOKE TO DAVID UPDATED ON ADDRESS PATIENT WILL BE STAYING AT. Addendum: 07/19/24 at 0938 by FINESSE PICKETT RN CM Amended: Links added.
--- NOTE | 2024-07-19 09:44 | NUR ---
PETE JOSHUA [facility] SENT REQUESTED CHEST XRAY AND E[facility] TO [facility]. [facility] CALLED [facility]ID APPROVED TREATMENTS PENDING TO GET APPOINTMENT AT [facility]. Addendum: 07/19/24 at 0945 by FINESSE PICKETT RN CM Amended: Links added.
[2024-07-19] MEDS ORDERED: PHARMACY COMMUNICATION MISC SCH ×2 (12:30→17:30)
[2024-07-19] MEDS ORDERED: [UNRECOGNIZED DRUG - OTHER] IV SCH (14:00)
[2024-07-19] MEDS ORDERED: AMINOCAPROIC ACID IV SCH (14:00)
[2024-07-19] MEDS: [UNRECOGNIZED DRUG - OTHER] IV SCH (15:30)
[2024-07-19] MEDS: AMINOCAPROIC ACID IV SCH (15:30)
--- NOTE | 2024-07-19 15:34 | NUR ---
AMICAR BLADDER IRRIGATION GIVEN ADMINISTER PER ORDER VIA CBI.
--- NOTE | 2024-07-19 17:07 | NUR ---
PETE PLAN VISITED WITH PATIENT. PER PATIENT [facility] SAID HE HAS APPOINTMENT FOR TUESDAY AT 8. JENNIFER GAVE DIRECTIONS TO [facility]. JENNIFER SPOKE TO [facility] SAID THEY RECEIVED CONFIRMATION BUT STILL PROCESSING VOUCHER BUT TENTATIVE IS FOR TUESDAY. JENNIFER DID TALK TO DR. AGUILLON REGARDING [facility]. SAID NO NEW ORDERS FOR [facility]. ADVISED PATIENT TO RETURN TO ER IF RE CLOTS OR TO FOLLOW UP WITH DR. ROMERO. JENNIFER LET NURSE KNOW OF CONVERSATIONS. Addendum: 07/19/24 at 1712 by FINESSE PICKETT RN CM Amended: Links added.
--- NOTE | 2024-07-19 17:13 | PN ---
[facility] PROGRESS NOTE Date of Service: July 19, 2024 Time of Service: 17:07 SUBJECTIVE: 74-year-old male with a history of BPH, prostate CA s/p prostatectomy, penile urethral stricture , urinary incontinence, skin CA, CHF, HDL, left BBB, heart murmur, HTN, and DM who presented to [facility] for evaluation of hematuria and urinary retention secondary to blood clots. Cystoscopy was performed several weeks ago with a Whitmore placed. Since then, the patient has been admitted to the emergency room multiple times to have the Whitmore replaced because of blood clots. He was recently admitted to [facility] from 07/06/2024 and was discharged on 07/12/2024 after undergoing a cysto urethroscopy with evacuation of blood clots and fulguration on 07/11/2024 for hemorrhagic radiation cystitis. Labs and vitals at the time of admission are unremarkable. CT of abdomen and pelvis shows large amount of likely clots demonstrated in the bladder, bladder grossly distended, mild bilateral hydroureteronephrosis. He was admitted for further evaluation and management. 07/15/2024: Patient seen in room with RN. He was having trouble with Whitmore not draining urine due to possibly retained clot obstructing. He was not able to tolerate any irrigation. I called and discussed with Dr. Watson. He will be coming in to evaluate the patient to soon as he can. Meanwhile he said it is okay to give pain medications I will he was some morphine and Dilaudid and await urological intervention. 07/16/2024: Seen resting comfortably on his bed. Patient underwent cystourethroscopy with evacuation of multiple obstructing clots and fulguration of the bladder neck and trigone. He was also treated with tranexamic acid for bleeding control. He continues to be on slow CBI. Pending Alum bladder irrigation. Urine in his Whitmore bag appears light pink and patient denies any abdominal pain at this time. 07/17/2024: Patient seen resting comfortably on his bed. Patient had1 episode of hematuria yesterday-he is draining clear urine in the Whitmore's bag. Pharmacy does not have alum-we will request intravesical administration of Amicar 2.5 g. As per the Urology recommendations, patient will be discharged from the hospital for further hyperbaric oxygen treatment at the outpatient setting. 5.7.25: Patient is seen resting comfortably on his bed . No further episodes of hematuria . Pharmacy doesnot have alum nor CBI with Amicar was executed due to hospital policy restrictions . The same is conveyed to urologist .As per the urologist , patient will be having recurring episodes of hematuria due to the underlying radiation cystitis . Patient is aware of the same . Patient is stable at the time of discharge.Patient is required to follow up for outpatient hyperbaric oxygen treatment as scheduled by the [facility]. Addendum: 4 pm: At this time , I was informed that hospital could be able to administer Amicar CBI and order was placed for the CBI to be run over 6 over 6 hours. Discharge was suspended . 07/19/2024: Patient is having hematuria today morning, which is expected. CBI with Amicar was ordered however it was started at 4:00 p.m. afternoon for 6 hours. I discussed with the director pharmacy services to adjust the flow rate and the amount of normal saline irrigation to be adjusted for 3 hours. 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 Hemoglobin is stable. Patient is not complaining of pain. Plan is to discharge the patient tomorrow and patient will be coming to [facility] Emergency room to evacuate the clots as needed till he gets an appointment for hyperbaric oxygen treatment. REVIEW OF SYSTEMS CONSTITUTIONAL: Denies fevers, chills, or night sweats. No unintentional weight loss reported. NEUROLOGICAL: Denies headache, amaurosis fugax, motor weakness, sensory deficit, vertigo/spinning sensation, gait abnormalities, or tremors. ENT: No hearing loss, otalgia, otorrhea, rhinitis, rhinorrhea, hoarseness, or sore throat. CARDIOVASCULAR: Denies any exertional angina, dyspnea on exertion, orthopnea, paroxysmal nocturnal dyspnea, palpitations, life-threatening arrhythmias, claudication. PULMONARY: Denies any shortness of breath, cough, phlegm/sputum, hemoptysis, pleuritic chest pain. SLEEP: Denies morning headaches, daytime somnolence or napping. Denies difficulty falling asleep, staying asleep, waking from sleep. Denies knowledge of snoring. GASTROINTESTINAL: Denies any type of dysphagia to either liquids or solids. Denies nausea, vomiting, pyrosis, early satiety, abdominal pain, diarrhea, constipation, or changes in stool consistency or caliber. Denies coffee-ground emesis, hematemesis, hematochezia, or melanotic stools. GENITOURINARY: Denies frequency, urgency, nocturia, hematuria or incontinence (Storage/Irritative symptoms.) Low urinary stream, straining to void, urinary intermittency or hesitancy, splitting of the voiding stream, terminal dribbling. ENDOCRINOLOGIC: Denies polyuria, polydipsia, polyphagia or heat/cold intolerances. HEMATOLOGIC: Denies thrombophilia/previous clots, or coagulopathy/bleeding disorders. ONCOLOGIC: Denies personal history of malignancy. DERMATOLOGIC: Denies rashes or pruritus. PSYCHIATRIC: Denies any suicidal or homicidal ideation. Denies hallucinations. PHYSICAL EXAM GENERAL APPEARANCE: The patient is awake, alert, and oriented, in no acute cardiopulmonary distress. NEUROLOGICAL: Cranial nerves II-XII grossly intact. Motor is 5/5 in bilateral upper and lower extremities proximal to distal. No sensory deficits. HEENT: Face is symmetric. Pupils are equal and reactive. Extraocular movements are intact. NECK: Supple. No JVD. No thyromegaly. No submental, submandibular, pre- /postauricular, occipital or supraclavicular lymphadenopathy. CHEST: Normal chest expansion. No Telemetry. LUNGS: Absence of any rales, rhonchi or any wheezing. CARDIOVASCULAR: Regular. S1 and S2 normal. No appreciable rubs, murmurs or gallops. ABDOMEN: Soft, nontender, and nondistended. There is no rebound, voluntary guarding, or rigidity. : Deferred. No Whitmore. EXTREMITIES: Non-edematous and not cyanotic. No clubbing. Good capillary refill. SKIN: No skin breakdown. Vital Signs (last 8hr) Date Time Temp Pulse Resp B/P (MAP) Pulse Ox O2 Delivery O2 Flow Rate FiO2 07/19/24 16:18 98.4 82 19 137/59 95 Room Air 07/19/24 16:16 98.4 61 19 153/87 95 Room Air 07/19/24 12:00 98.2 69 19 130/62 96 Room Air LABS: Laboratory: Test 07/19/24 14:58 07/19/24 05:09 Range/Units Whole Blood Glucose 235 H 70-110 MG/DL White Blood Count 6.9 4.8-10.8 K/uL Red Blood Count 2.59 L 4.50-6.20 MIL/uL Hemoglobin 8.3 L 14.0-18.0 g/dL Hematocrit 25.0 L 42-54 % Mean Corpuscular Volume 96.5 79-99 fL Mean Corpuscular Hemoglobin 32.0 27.0-33.0 pg Mean Corpuscular Hemoglobin Concent 33.2 32.0-36.0 g/dL Red Cell Distribution Width 13.0 11.0-15.5 % Platelet Count 196 130-400 K/uL Mean Platelet Volume 9.7 7.5-10.5 fL Nucleated Red Blood Cells 0.0 0.0-0.19 % Sodium Level 143 136-145 mmol/L Potassium Level 4.4 3.5-5.1 mmol/L Chloride Level 107 101-111 mmol/L Carbon Dioxide Level 29 21-32 mmol/L Blood Urea Nitrogen 8 7-18 mg/dL Creatinine 1.2 0.5-1.3 mg/dL Glomerular Filtration Rate Calc 63 >90 mL/min Random Glucose 148 H 70-105 mg/dL Total Calcium 8.7 8.5-10.1 mg/dL Current Medications Medications (Trade) Dose Ordered Sig/Jacy Route PRN Reason Start Time Stop Time Status Last Admin Dose Admin Acetaminophen (TYLenol 325MG TAB) 650 mg Q6H PRN PO TEMPERATURE GREATER THAN 101.5 07/15/24 00:30 08/14/24 00:29 Aminocaproic Acid 200 mg/Sodium Chloride 1,000 ml @ 0 mls/hr AD IV 07/19/24 14:00 07/19/24 14:34 DC Aminocaproic Acid 600 mg/Sodium Chloride 3,000 ml @ 500 mls/hr AD IV 07/19/24 15:00 07/26/24 13:59 Aminocaproic Acid 2500 mg/Sodium Chloride 200 ml @ 0 mls/hr AD IV 07/17/24 13:00 07/17/24 12:48 DC Atorvastatin Calcium (LIPItor 20MG) 20 mg HS PO 07/16/24 21:00 08/15/24 20:59 07/18/24 20:06 20 MG Bupropion HCl (WellBUTrin SR 150MG) 150 mg DAILY PO 07/16/24 09:00 08/15/24 08:59 07/19/24 11:33 150 MG Famotidine (Pepcid 20mg Vial) 20 mg DAILY IV 07/15/24 09:00 08/14/24 08:59 07/19/24 11:33 20 MG Hydromorphone HCl (DiLAUDid 0.5MG INJ) 0.5 mg Q6H PRN IVP SEVERE PAIN (7-10) 07/15/24 13:30 07/20/24 13:29 Insulin Human Regular (humuLIN R 100 UNIT/ML 3ML) INSULIN SLIDING SCAL... ACHS SQ 07/17/24 07:30 08/16/24 07:29 07/18/24 20:10 8 UNIT Lactated Ringer's 1,000 ml @ 75 mls/hr [id number] IV 07/15/24 00:30 08/14/24 00:29 07/17/24 18:04 75 MLS/HR Magnesium Sulfate 50 ml @ 0 mls/hr PROTOCOL IV 07/15/24 11:30 08/14/24 11:29 07/17/24 06:16 15 MLS/HR Metoprolol Succinate (TopROL XL) 50 mg DAILY PO 07/16/24 09:00 08/15/24 08:59 07/19/24 11:34 50 MG Morphine Sulfate (morPHINE 2MG SYG) 2 mg Q4H PRN IVP MODERATE PAIN (4-6) 07/14/24 23:30 07/21/24 23:29 07/18/24 16:13 2 MG Ondansetron HCl (zoFRAN 4MG INJ) 4 mg Q6H PRN IV NAUSEA/VOMITING 07/15/24 00:30 08/14/24 00:29 Ondansetron HCl (zoFRAN 4MG INJ) 4 mg Q6H PRN IVP NAUSEA/VOMITING 07/14/24 23:30 07/15/24 00:10 DC Pharmacy Profile Note (Lace Assessment) 1 each AD MISC 07/15/24 14:00 07/15/24 13:53 DC Pharmacy Profile Note (Pharmacy Communication) 1 each ONCE MISC 07/18/24 17:30 07/18/24 17:46 DC Pharmacy Profile Note (Pharmacy Communication) 1 each ONCE MISC 07/19/24 12:30 07/19/24 13:11 DC Potassium Chloride 100 ml @ 100 mls/hr AD PRN IV POTASSIUM PROTOCOL 07/17/24 06:00 08/16/24 05:59 Potassium Chloride (K-Dur/Klor-Con 20meq) 20 meq AD PRN PO POTASSIUM PROTOCOL 07/17/24 06:00 08/16/24 05:59 07/17/24 19:32 20 MEQ Potassium Chloride (KCl 10% Elixir 20meq/15ml) 20 meq AD PRN PO POTASSIUM PROTOCOL 07/17/24 06:00 08/16/24 05:59 Sacubitril/ Valsartan (Entresto 97 Mg-103 Mg Tablet) 1 each DAILY PO 07/16/24 09:00 08/15/24 08:59 07/19/24 11:33 1 EACH DIAGNOSTICS / RADIOLOGY: [ ] DISCHARGE DIAGNOSIS : Hemorrhagic radiation cystitis, POA Acute Urinary retention secondary to Whitmore catheter obstruction with blood clots, POA-status post cystourethroscopy with clot evacuation on 07/15/2024 Mild bilateral hydroureteronephrosis, POA Acute kidney injury , POA Acute blood loss anemia, POA Diabetes mellitus type 2, POA Chronic Whitmore's catheter, POA Chronic problem list: BPH, prostate CA s/p prostatectomy and radiotherapy , skin CA, CHF, HDL, left BBB, heart murmur, HTN, and DM Penile urethral stricture Incontinence ASSESSMENT : Hemorrhagic radiation cystitis, POA with recurrent hematuria . Acute Urinary retention secondary to Whitmore catheter obstruction with blood clots, POA-status post cystourethroscopy with clot evacuation on 07/15/2024 treated with Slow CBI s/p Irrigation with Tranexamic acid s/p bladder irrigation with Amicar x 2 Patient is requested to stop Aspirin Patient will continue HBO2 therapy as outpatient I have discussed with the patient the possibility of hematuria episodes again and if it causes obstruction - he needs to come to the ER and get it flushed out to relieve obstruction . Please follow up with primary care doctor to check hemoglobin levels . Mild bilateral hydroureteronephrosis, POA BRYAN, POA- resolved Creat 1.0 at the time of discharge Acute blood loss anemia, POA Hemoglobin at 8.8 Patient with iron-deficiency anemia - treated with IV iron Please follow up with primary care doctor to check hemoglobin levels . Diabetes mellitus type 2, POA Stable blood sugars Chronic Whitmore's catheter, POA Urinalysis negative ATTESTATION BY PHYSICIAN I have seen and examined the patient. I reviewed the documentation, medical decision making, and treatment plan as noted by the resident provider above. I agree with the findings and plan of care. Titi Hampton MD, ANCHU A MD July 19, 2024 17:13
[2024-07-19] MEDS ORDERED: [UNRECOGNIZED DRUG - OTHER] IV ONE (18:00)
[2024-07-19] MEDS ORDERED: AMINOCAPROIC ACID IV ONE (18:00)
[2024-07-19] MEDS: IRON sUCROse COMPLEX 100 MG/5 ML VIAL IV ONE (18:15)
[2024-07-19] MEDS: AMINOCAPROIC ACID IR SCH (19:00)
[2024-07-19] MEDS: SODIUM CHLORIDE IRRIG IR SCH (19:00)
[2024-07-20] VITALS: BP 123/54; PULSE 52; RESP 18; TEMP 98.3
[2024-07-20 04:00] VITALS: BP 115/42; PULSE 56; RESP 17; TEMP 98
[2024-07-20 06:27] LABS: BASOPHILS # (AUTO) 0.02 K/uL (0.00-0.20); BASOPHILS % (AUTO) 0.3 % (0.0-5.0); EOSINOPHILS # (AUTO) 0.29 K/uL (0.00-0.70); EOSINOPHILS % (AUTO) 4.3 % (0.0-8.0); HEMATOCRIT 27.1 % (42-54); IMMATURE GRANULOCYTE ABSOLUTE 0.04 K/uL (0-1); LYMPHOCYTES # (AUTO) 1.5 K/uL (1.0-4.8); LYMPHOCYTES % (AUTO) 22.5 % (21.0-51.0); MEAN CORPUSCULAR HEMOGLOBIN 32.1 pg (27.0-33.0); MEAN CORPUSCULAR HGB CONC 33.9 g/dL (32.0-36.0); MEAN CORPUSCULAR VOLUME 94.4 fL (79-99); MONOCYTES # (AUTO) 0.5 K/uL (0.1-1.0); MONOCYTES % (AUTO) 7.9 % (3.0-13.0); NEUTROPHILS # (AUTO) 4.4 K/uL (1.8-7.7); NEUTROPHILS % (AUTO) 64.4 % (40.0-77.0); PLATELET COUNT (AUTO) 226 K/uL (130-400); RED BLOOD CELL COUNT(AUTO) 2.87 MIL/uL (4.50-6.20); RED CELL DISTRIBUTION WIDTH 13.3 % (11.0-15.5); WHITE BLOOD COUNT (AUTO) 6.8 K/uL (4.8-10.8)
[2024-07-20 06:37] LABS: CREATININE 1.1 mg/dL (0.5-1.3); POTASSIUM 3.9 mmol/L (3.5-5.1)
[2024-07-20 08:00] VITALS: BP 119/63; PULSE 57; RESP 19; TEMP 97.8
[2024-07-20 12:00] VITALS: BP 126/70; PULSE 69; RESP 19; TEMP 98.2
--- NOTE | 2024-07-20 15:20 | NUR ---
PATIENT GIVEN DISCHARGE INSTRUCTION TO RETURN TO THE ER IF THE 3 WAY CATHETER BECOMES OCCLUDED, VERBALIZED UNDERSTANDING , DISCHARGE INSTRUCTION WITH FOLLOW UP APPOINTMENTS GIVEN TO PATIENT AND DISCHARGED HOME VIA W/C TO PRIVATE VEHICLE
--- NOTE | 2024-07-23 16:04 | NUR ---
Transitional Phone Call Spoke to patient, states feeling "not so great," "feeling very weak," "walks and can not breath," and "had chest pain that lasted a minute or two." Referred him to the emergency room or call ambulance; states it does not hurt anymore. States he has the followup appointment with the [facility] doctor in 30 minutes via phone call 07/23/2024 1500; notified patient to inform the doctor and that the doctor will tell him to go to the emergency room as well. States he has the follow up appointment for the urologist - Dr. Watson until 10/07/2024; states "someone from [facility] for HBO chamber called and canceled 07/24/2024 at 0800 due to the machines being broken and "someone is trying to set up appointment for [facility] in [place]." Requested assistance to set up appointment. Contacted [facility], [facility] Director ext [phone], she states patient called and canceled appointment and insisted to go to [place] after they explained to patient that the vouch complete, the chamber is ready for the appointment 07/24/2024 at 0800. Patient still canceled. Jolanta, therefore, called [facility] canceled the voucher. Due to Marlon Benjamin, Son [phone] request to reinstate the appointment for 07/24/2024, Jolanta will contact [facility] and contact Marlon Benjamin, Son. Spoke to Marlon Benjamin, Son [phone], he stated the patient may be confused it is the urology procedure for Dr. Watson that needs to be in [place] not the wound care center. States patient and his spouse live alone and are independent. Spouse, son and daughter can assist with transportation to make [facility] daily appointments for 40 or so sessions. Denies home health services or home care provider; son requests assistance due to having an indwelling catheter; referred to [facility]; notified Yvette. Marlon Benjamin, son states he is on his way to the [facility] to check on his father and he will ask about the voucher for the wound care and let the doctor's know of the symptoms he has been feeling in the last few days. Son is sure that he will not disclose the symptoms. Per patient states the medication is a supplement (iron) and the [facility] does not stock it. Marlon Benjamin, Son [phone] states he has purchased the supplement over the counter and will take it to him.
== END 2024-07-20 15:25 | disposition home or self-care (01) | DRG 669 ==
LOC: EDH 14:59 → EDHIP 21:16 → 4CH 23:02
PROVIDERS: ADMIT Internal Medicine; ATTEND Internal Medicine
PROC: 0T5C8ZZ Destruction of Bladder Neck, Via Natural or Artificial Opening Endoscopic (ICD-10-PCS; principal; 2024-07-15 15:19)
PROC: 0TCB8ZZ Extirpation of Matter from Bladder, Via Natural or Artificial Opening Endoscopic (ICD-10-PCS; 2024-07-15 15:19)
PROC: 3E0K8GC Introduction of Other Therapeutic Substance into Genitourinary Tract, Via Natural or Artificial Opening Endoscopic (ICD-10-PCS; 2024-07-15 15:19)
DX: N30.41 Irradiation cystitis with hematuria (principal); D62 Acute posthemorrhagic anemia; N17.9 Acute kidney failure, unspecified; N13.6 Pyonephrosis; N32.89 Other specified disorders of bladder; D50.9 Iron deficiency anemia, unspecified; I11.0 Hypertensive heart disease with heart failure; I50.9 Heart failure, unspecified; E11.9 Type 2 diabetes mellitus without complications; I25.10 Atherosclerotic heart disease of native coronary artery without angina pectoris; N35.919 Unspecified urethral stricture, male, unspecified site; N40.1 Benign prostatic hyperplasia with lower urinary tract symptoms; Z85.46 Personal history of malignant neoplasm of prostate; Z85.828 Personal history of other malignant neoplasm of skin; Z90.79 Acquired absence of other genital organ(s); Z80.3 Family history of malignant neoplasm of breast; Z82.49 Family history of ischemic heart disease and other diseases of the circulatory system
CPT/HCPCS: 36415; 71045; 74176; 80048; 80053; 81001; 82948; 83735; 84100; 85014; 85018; 85025; 85027; 85610; 85730; 86850; 86900; 86901; 93005; 99285; A4346; A4354; G0378; J0690; J1100; J1171; J1756; J1815; J2250; J2270; J2371; J2405; J2704; J2710; J3010; J3475; J3490; J7030; J7050; J7120; A4222; A4223; A4358; A4600; A4649; A4930

== ENCOUNTER 2024-07-24 16:14 | Emergency (ER) | payer OTHER ==
[~2024-07-24] VITALS: Ht 167.6 cm; Wt 64.4 kg
[~2024-07-24 16:14] MED LIST changes: +FERR-82 PO
--- NOTE | 2024-07-24 17:07 | NUR ---
PER DR. PEARSON, TO USE CBI AND HANG 1 BAG OF 3L TO IRIGATE SUTHERLAND CATHETER
--- NOTE | 2024-07-24 18:29 | EKG ---
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
--- NOTE | 2024-07-24 18:30 | ERN ---
General Chief Complaint: Blood in Urine: Stated Complaint: BLOOD IN URINE Time Seen by MD: 16:19 Source: patient History of Present Illness Initial Comments IN HIS IS A 74-YEAR-OLD MALE COMING IN COMPLAINING OF HEMATURIA. PATIENT HAS A AN INDWELLING SUTHERLAND CATHETER AND FREQUENTLY COMES IN WITH A WORSENING HEMATURIA. PATIENT WAS PENDING IMAGING STUDY TO EVALUATE THE URETHRA BUT STATES HE CAME IN FOR FURTHER EVALUATION BEFORE HE VISITED HIS UROLOGIST. Allergies: Coded Allergies: No Known Drug Allergies (Verified Allergy, Unknown, 03/31/21) Home Meds Active Scripts Ferrous Sulfate (Iron) 325 Mg (65 Mg Iron) Tablet, 1 TAB PO BID for 15 Days, #30 TAB 0 Refills TAKE ONE TABLET 30 MINUTES BEFORE THE MEAL Prov:HENNA SY MD 07/18/24 Reported Medications Sacubitril/Valsartan (Entresto 97 mg-103 mg Tablet) 97 Mg-103 Mg Tablet, 1 TAB PO DAILY for 30 Days, #60 TAB 0 Refills 07/08/24 Bupropion HCl (Bupropion HCl Sr) 150 Mg Tablet.er, 1 TAB PO DAILY for 30 Days, #60 TAB 0 Refills 07/08/24 Metoprolol Succinate (Metoprolol Succinate) 50 Mg Tab.er.24h, 1 TAB PO DAILY for 30 Days, #30 TAB 0 Refills 07/08/24 Atorvastatin Calcium (LIPITOR) 40 Mg Tablet, 0.5 TAB PO HS for 30 Days, #30 TAB 0 Refills 07/08/24 Empagliflozin (Jardiance) 25 Mg Tablet, 1 TAB PO DAILY for 30 Days, #30 TAB 0 Refills 07/08/24 Past Medical History Past Medical History: Diabetes-Type II, High Cholesterol, Hypertension Medical History Other: BPH, PROSTATE CA, SKIN CA Past Surgical History: Other Surgical History Other: PROSTECTOMY ROS Dictation CONSTITUTIONAL: NO CHILLS, NO FEVER, NO WEAKNESS, NO DIAPHORESIS, NO MALAISE. HEAD/FACE: NO SIGNS OF TRAUMA. EENT: NO EYE PAIN, NO BLURRED VISION, NO TEARING, NO DOUBLE VISION, NO EAR PAIN, NO EAR DISCHARGE, NO NOSE PAIN, NO NASAL CONGESTION, NO THROAT PAIN, NO THROAT SWELLING, NO MOUTH PAIN. RESPIRATORY: NO COUGH, NO ORTHOPNEA, NO SOB, NO STRIDOR, NO WHEEZING. CARDIOVASCULAR: NO CHEST PAIN, NO EDEMA, NO PALPITATIONS, NO SYNCOPE. GASTROINTESTINAL/ABDOMINAL: NO ABDOMINAL PAIN, NO CONSTIPATION, NO DIARRHEA, NO NAUSEA, NO VOMITING. GENITOURINARY: NO ABNORMAL DISCHARGE, NO DYSURIA, NO FREQUENT URINATION, HEMATURIA. COMPLAINTS OF PAIN IN THE GENITALS. MUSCULOSKELETAL: NO BACK PAIN, NO GOUT, NO JOINT PAIN, NO JOINT SWELLING, NO MUSCLE PAIN, NO MUSCLE STIFFNESS, NO NECK PAIN. INTEGUMENTARY: NO CHANGE IN COLOR, NO CHANGE IN HAIR/NAILS, NO DRYNESS, NO LES ION, NO LUMPS, NO RASH. NEUROLOGICAL/PSYCH: NO ANXIETY, NOT DEPRESSED, NO EMOTIONAL PROBLEM, NO HEADACHE, NO NUMBNESS, NO PRE-EXISTING DEFICIT, NO HISTORY OF SEIZURES, NO TREMORS, NO WEAKNESS. HEMATOLOGIC/LYMPHATIC: NOT ANEMIC, NO HISTORY OF BLOOD CLOTS, NO APPARENT BLEEDING, NO BRUISING, GLANDS NOT SWOLLEN. ALL SYSTEMS NEGATIVE, EXCEPT NOTED. Physical Exam Physical Exam Dictation VITAL SIGNS: REVIEWED. GENERAL APPEARANCE: ALERT, ORIENTED X3, NO ACUTE DISTRESS, OBESE. HEAD AND FACE: NON-TRAUMATIC. EYES: PERRL, PINK CONJUNCTIVAS, EYELID NO TRAUMA, ANTERIOR CHAMBER CLEAR. EARS: PINNAS INTACT AND NO SIGNS OF TRAUMA OR ERYTHEMA. EAR CANALS CLEAR AND NO DISCHARGE. TMS NO ERYTHEMA. NOSE: NO DISCHARGE, NO BLEEDING. OROPHARYNX: MOUTH NORMAL, TEETH NO CARIES, TONGUE PINK. PHARYNX CLEAR, NO ERYTHEMA. TONSILS NO EXUDATES, NO ABSCESSES NOTED. MUCOUS MEMBRANE MOIST. NECK: SUPPLE, NON-TENDER, NO THYROMEGALY, NO MASSES, NO JVD, NO BRUITS. BREAST: DEFERRED. CHEST: NO TENDERNESS, NO CREPITUS, NO PARADOXICAL MOVEMENT, NO RETRACTIONS. LUNGS: CLEAR, WELL-VENTILATED, SYMMETRIC, NO RALES, NO WHEEZING, NO RHONCHI, NO STRIDOR, GOOD BREATH SOUNDS BILATERALLY. HEART: REGULAR RATE, REGULAR RHYTHM, NO MURMUR, NO GALLOPS. VASCULAR: NO PERIPHERAL EDEMA. ABDOMEN: SOFT, POSITIVE BOWEL SOUNDS, NONDISTENDED, NO GUARDING, NONTENDER, NO REBOUND, NO MASSES NO HEPATOMEGALY, NO SPLENOMEGALY, NO JENKINS'S SIGN, NO HERNIAS. RECTAL: DEFERRED. GENITAL: SUTHERLAND IN PLACE NEUROLOGICAL: NORMAL SPEECH, GROSS MOTOR FUNCTION INTACT, GROSS SENSORY FUNCTION INTACT. MUSCULOSKELETAL: NECK NONTENDER, FULL RANGE OF MOTION, BACK NONTENDER, FULL RANGE OF MOTION. EXTREMITIES: NONTENDER, FULL RANGE OF MOTION. SKIN: COLOR PINK, DRY, NO TURGOR, NO RASH, NO LACERATIONS, NO ABRASIONS, NO CONTUSIONS. LYMPHATICS: DEFERRED. Results Laboratory and Microbiology Lab and Micro Result Laboratory Tests Test 07/24/24 18:11 07/24/24 19:25 Urine Color BROWN (YELLOW) Urine Appearance CLOUDY (CLEAR) H Urine pH 5.5 (5.0-8.0) Urine Specific [place] 1.004 (1.001-1.031) Urine Protein 20 mg/dL (NEGATIVE) H Urine Glucose (UA) TRACE mg/dL (NEGATIVE) H Urine Ketones NEGATIVE mg/dL (NEGATIVE) Urine Occult Blood LARGE (NEGATIVE) H Urine Nitrate NEGATIVE (NEGATIVE) Urine Bilirubin NEGATIVE mg/dL (NEGATIVE) Urine Urobilinogen 0.2 mg/dL (0.2-1.0) Urine Leukocyte Esterase 75 Zhou/uL (NEGATIVE) H Urine RBC >100 /HPF (0-1) H Urine WBC 6-10 /HPF (0-1) H Urine Other Crystals (Auto) 17 /HPF (None Seen) Urine Bacteria None /HPF (None Seen) White Blood Count 13.5 K/uL (4.8-10.8) H Red Blood Count 3.37 MIL/uL (4.50-6.20) L Hemoglobin 10.9 g/dL (14.0-18.0) L Hematocrit 33.0 % (42-54) L Mean Corpuscular Volume 97.9 fL (79-99) Mean Corpuscular Hemoglobin 32.3 pg (27.0-33.0) Mean Corpuscular Hemoglobin Concent 33.0 g/dL (32.0-36.0) Red Cell Distribution Width 14.0 % (11.0-15.5) Platelet Count 237 K/uL (130-400) Mean Platelet Volume 9.8 fL (7.5-10.5) Immature Granulocyte % (Auto) 0.4 % (0-1) Neutrophils (%) (Auto) 78.9 % (40.0-77.0) H Lymphocytes (%) (Auto) 12.3 % (21.0-51.0) L Monocytes (%) (Auto) 6.4 % (3.0-13.0) Eosinophils (%) (Auto) 1.7 % (0.0-8.0) Basophils (%) (Auto) 0.3 % (0.0-5.0) Neutrophils # (Auto) 10.7 K/uL (1.8-7.7) H Lymphocytes # (Auto) 1.7 K/uL (1.0-4.8) Monocytes # (Auto) 0.9 K/uL (0.1-1.0) Eosinophils # (Auto) 0.23 K/uL (0.00-0.70) Basophils # (Auto) 0.04 K/uL (0.00-0.20) Absolute Immature Granulocyte (auto 0.06 K/uL (0-1) Nucleated Red Blood Cells 0.0 % (0.0-0.19) Sodium Level 137 mmol/L (136-145) Potassium Level 4.2 mmol/L (3.5-5.1) Chloride Level 104 mmol/L (101-111) Carbon Dioxide Level 25 mmol/L (21-32) Blood Urea Nitrogen 17 mg/dL (7-18) Creatinine 1.4 mg/dL (0.5-1.3) H Glomerular Filtration Rate Calc 52 mL/min (>90) Random Glucose 167 mg/dL (70-105) H Lactic Acid Level 1.7 mmol/L (0.8-2.5) Total Calcium 9.1 mg/dL (8.5-10.1) Total Creatine Kinase 28 U/L (21-232) Troponin I High Sensitivity 8.9 ng/L (4-75) Labs Reviewed?: Yes EKG/XRAY/US/CT/MRI CT Scan Comment REASON: HEMATURIA ORDERING PHYSICIAN: HANS PEARSON MD PROCEDURE: ABD PEL WO - CT ABDOMEN/PELVIS W/O CONTRAST CT ABDOMEN WITHOUT CONTRAST. CT PELVIS WITHOUT CONTRAST. INDICATION: Hematuria TECHNIQUE: Routine transaxial imaging using 5 mm slice thickness through the abdomen and pelvis without the administration of IV contrast. Thin slice reconstructions are also provided. Coronal and sagittal reformatted images acquired for interpretation. CT was performed with one or more of the following dose reduction techniques: Automated exposure control, adjustment of the mA and/or kV according to patient size, or use of iterative reconstruction technique. COMPARISON: 07/14/2024 FINDINGS: ON NONCONTRAST IMAGING: ABDOMEN: Heart size is normal. Visible lung bases are clear. No abnormal renal calcifications, hydronephrosis, perinephric inflammation, or proximal hydroureter detected. The liver is normal in size and smooth in contour without biliary duct dilation. The spleen is normal in size and attenuation. The gallbladder appears normal. The pancreas appears normal without pancreatic duct dilation. The adrenal glands appear normal. No significant abdominal, retrocrural or retroperitoneal adenopathy noted. No evidence for intra-abdominal free air or organized fluid collection. No aortic aneurysmal dilation identified. PELVIS: Small amount of high density hemorrhage within the urinary bladder. Sutherland catheter within the urinary bladder. Air nondependently within the urinary bladder is likely related to catheterization. Mild urinary bladder wall thickening and suspect nominal surrounding inflammatory fat stranding. No evidence for free air or organized pelvic fluid collection. No significant pelvic adenopathy detected. Several diverticula along the distal colon. Moderate stool burden. Terminal ileum appears unremarkable. The appendix appears normal. Visible osseous structures are intact. IMPRESSION: 1. Small amount of residual hemorrhage/blood clot within the urinary bladder and suspect mild cystitis. 2. Distal colonic diverticulosis and moderate stool burden. 3. Additional minor findings, postsurgical changes, and pertinent negatives as reported. DICTATED BY: ENA IBARRA MD DATE: 07/24/241899 MDM MDM: Differential diagnosis: HEMATURIA, UTI, DYSURIA, SEPSIS, Rationale: Tests considered and ordered secondary to shared decision making include: Previous outside records reviewed: Old ER visits. Risk of complication and/or morbidity or mortality of patient management: None Medications-Per medication reconciliation Need for hospitalization: Patient does not meet criteria for hospitalization. Need for emergency major/minor surgery: No There are no social concerns with this patient. Prescription drug management Prescriptions will include symptomatic care Patient's prior external medical records from other ER visits were reviewed by me as indicated. Prior testing and results from previous visits were reviewed. Prior tests were taken into account with medical decision making and resource utilization, independent historian/historians were used to obtain complete medical history. I independently interpreted the test that were performed, results were reviewed by me and considered findings on radiology if ordered. Medical management and examination interpretation discussions were had by me with other qualified healthcare professionals as indicated for the patient's care. ED Course Orders Procedure Category Date Status Time Iv Insertion CPOE 07/24/24 Transmitted 18:11 Pulse Ox(Continuous) RT 07/24/24 Transmitted 18:11 Vital Signs Per CPOE 07/24/24 Transmitted Routine 18:11 12 Lead Ekg Tracing- EKG 07/24/24 Complete Technical 18:11 Cbc With Differential LAB 07/24/24 Complete 18:11 Blood Cult NJ 07/24/24 Logged 18:11 Urinalysis Profile LAB 07/24/24 Complete 18:11 Culture Urine NJ 07/24/24 In Process 18:11 Lactic Acid LAB 07/24/24 Complete 18:11 Basic Metabolic Panel LAB 07/24/24 Complete 18:11 Ct Abdomen/Pelvis W/O CT 07/24/24 Resulted Contrast 18:17 Aerobic Culture NJ 07/24/24 In Process 18:17 Cardiac Panel LAB 07/24/24 Complete 18:11 0.9%Nacl 1000ml (Ns PHA 07/24/24 In Process 1000ml) 19:30 Ceftriaxone 1g Vial PHA 07/24/24 Complete (Rocephine 1g Inj) 21:00 Current Medications Medications (Trade) Dose Ordered Sig/Jacy Route PRN Reason Start Time Stop Time Status Last Admin Dose Admin Ceftriaxone Sodium (ROCEphine 1G INJ) 1 gm ONCE ONCE IVPB 07/24/24 21:00 07/24/24 21:01 DC 07/24/24 21:03 Sodium Chloride 1,000 ml @ 125 mls/hr ONCE ONCE IV 07/24/24 19:30 07/25/24 03:29 07/24/24 21:03 Vital Signs Date Time Temp Pulse Resp B/P (MAP) Pulse Ox O2 Delivery O2 Flow Rate FiO2 07/24/24 21:34 98.4 78 18 126/68 98 Room Air* 0 07/24/24 19:26 98.2 60 18 164/68 98 Room Air* 0 07/24/24 17:09 98.8 60 17 108/57 99 Room Air* 0 07/24/24 16:19 98.1 66 18 121/57 98 Room Air 0 7:00 p.m. patient was signed out to me by a.m. physician. This is a 74-year-old male with a urinary retention and indwelling Sutherland catheter with obstruction and malfunctioning. Apparently after flushing the Sutherland there was purulent and bloody drainage. There was a concern for a complicated UTI and ongoing hemorrhage into the bladder and hence a CT scan of the abdomen and pelvis was done. Patient's indicated to me that he was seen in the emergency room yesterday at [facility] for a chest pain and discomfort where they did a workup on him and gave him aspirin and she feels that might have triggered his symptoms again as he was doing fairly well after the course of hospitalization here in [facility]. Labs are pending CB I is in progress and 2nd bag of saline for bladder irrigation is in progress. 8:30 p.m. BNP [address] scan of the abdomen and pelvis showed exactly the same findings as recently during the hospitalization with a evidence of hemorrhage and clots in the bladder. Patient had another episode of feeling discomfort and felt that the blood clot was blocking his Sutherland catheter in the nurse had to flush the Sutherland with a immediate relief. I updated the patient and on the findings of the CT scan and they informed me that they would not want to be admitted at this facility and they are urologist is in [place] I explained to them that at this time since the urologist is available here it would be impossible to transfer him to a different facility for a treatable problem and facilities being available here. Verbalized full understanding and would like to be discharged to home. In obtaining details the indicated that the urologist Dr. Watson recommended that he come to [place] as he has not satisfied with the equipment available at this facility. Patient is also scheduled for Hyperbaric oxygen therapy for tomorrow. CBC and urinalysis is reported mild leukocytosis and more hematuria and a few WBCs were seen. With positive leuko esterase A dose of Rocephin will be given and after completing the current bag of CBI, patient would like to be discharged to home and should he have any additional problems in the night the stated that they would go directly to [facility] as instructed by their urologist I have offered to admit the patient here and made all the arrangements and had to change the plans to discharge him as it is their wish DX & DISP Disposition: Discharge Departure Impression: Primary Impression: Complicated urinary tract infection Additional Impressions: Malfunction of Sutherland catheter, Recurrent gross hematuria, Urinary retention Condition: Stable Scripts Ciprofloxacin HCl (Cipro) 500 Mg Tablet 1 TAB PO BID for 10 Days, #20 TAB 0 Refills Prov: ARTURO WEST MD 07/24/24 Additional Instructions: Patient and the caregiver have been informed of all the diagnostic tests and the imaging conducted during the today's visit to the emergency room and has verbalized understanding of the results I have personally reviewed and interpreted all diagnostic exams performed here in the ER today as well as the vital signs documented by the nursing staff. The patient is now being discharged to home and should follow up with the primary care physician or the specialist as directed by the ER staff. Follow-up with primary care provider in 1 to 2 days. Take medications as directed here in the emergency room. Okay to continue home medications unless otherwise discussed during your visit in the emergency room today. Return to your nearest emergency room if symptoms worsen or if there is no improvement. Call [phone] if you need immediate assistance. Take Tylenol or Motrin [id number] as needed and if no contraindications are present. Increase oral hydration. A wound culture or urine culture was ordered here in the emergency room department please follow-up with primary care provider and advise them to get repeat ports from our facility. If you had any Aidan wrap/splints that were applied here, please do not remove them until you see your primary care or specialty. Referrals: KIN PEREZ (PCP) NITHYA WATSON MD, ISABEL N MD July 24, 2024 18:30 ARTURO WEST MD July 24, 2024 19:22
[2024-07-24 18:31] LABS: APPEARANCE,URINE CLOUDY (CLEAR); BILIRUBIN,URINE NEGATIVE (NEGATIVE); COLOR,URINE BROWN (YELLOW); GLUCOSE, URINE (UA) TRACE mg/dL (NEGATIVE); KETONES,URINE NEGATIVE (NEGATIVE); LEUKOCYTE ESTERASE ,URINE 75 Leu/uL (NEGATIVE); NITRATE,URINE NEGATIVE (NEGATIVE); OCCULT BLOOD,URINE LARGE (NEGATIVE); PH,URINE 5.5 (5.0-8.0); PROTEIN,URINE 20 mg/dL (NEGATIVE); UROBILINOGEN,URINE 0.2 mg/dL (0.2-1.0)
[2024-07-24 18:41] LABS: ADD UA MICROSCOPIC YES
[2024-07-24 18:43] LABS: RBC,URINE >100 /HPF (0-1); UNCLASSIFIED CRYSTAL 17 /HPF (None Seen)
--- NOTE | 2024-07-24 18:58 | NUR ---
ASSUMED CARE OF PT AT THIS TIME. PT CURRENTLY IN CT SCAN
--- NOTE | 2024-07-24 19:05 | HMCIMG ---
CT ABDOMEN WITHOUT CONTRAST. CT PELVIS WITHOUT CONTRAST. INDICATION: Hematuria TECHNIQUE: Routine transaxial imaging using 5 mm slice thickness through the abdomen and pelvis without the administration of IV contrast. Thin slice reconstructions are also provided. Coronal and sagittal reformatted images acquired for interpretation. CT was performed with one or more of the following dose reduction techniques: Automated exposure control, adjustment of the mA and/or kV according to patient size, or use of iterative reconstruction technique. COMPARISON: 07/14/2024 FINDINGS: ON NONCONTRAST IMAGING: ABDOMEN: Heart size is normal. Visible lung bases are clear. No abnormal renal calcifications, hydronephrosis, perinephric inflammation, or proximal hydroureter detected. The liver is normal in size and smooth in contour without biliary duct dilation. The spleen is normal in size and attenuation. The gallbladder appears normal. The pancreas appears normal without pancreatic duct dilation. The adrenal glands appear normal. No significant abdominal, retrocrural or retroperitoneal adenopathy noted. No evidence for intra-abdominal free air or organized fluid collection. No aortic aneurysmal dilation identified. PELVIS: Small amount of high density hemorrhage within the urinary bladder. Whitmore catheter within the urinary bladder. Air nondependently within the urinary bladder is likely related to catheterization. Mild urinary bladder wall thickening and suspect nominal surrounding inflammatory fat stranding. No evidence for free air or organized pelvic fluid collection. No significant pelvic adenopathy detected. Several diverticula along the distal colon. Moderate stool burden. Terminal ileum appears unremarkable. The appendix appears normal. Visible osseous structures are intact. IMPRESSION: 1. Small amount of residual hemorrhage/blood clot within the urinary bladder and suspect mild cystitis. 2. Distal colonic diverticulosis and moderate stool burden. 3. Additional minor findings, postsurgical changes, and pertinent negatives as reported.
[2024-07-24 19:31] LABS: BASOPHILS # (AUTO) 0.04 K/uL (0.00-0.20); BASOPHILS % (AUTO) 0.3 % (0.0-5.0); EOSINOPHILS # (AUTO) 0.23 K/uL (0.00-0.70); EOSINOPHILS % (AUTO) 1.7 % (0.0-8.0); IMMATURE GRANULOCYTE ABSOLUTE 0.06 K/uL (0-1); LYMPHOCYTES # (AUTO) 1.7 K/uL (1.0-4.8); LYMPHOCYTES % (AUTO) 12.3 % (21.0-51.0); MEAN CORPUSCULAR HEMOGLOBIN 32.3 pg (27.0-33.0); MEAN CORPUSCULAR VOLUME 97.9 fL (79-99); MONOCYTES # (AUTO) 0.9 K/uL (0.1-1.0); MONOCYTES % (AUTO) 6.4 % (3.0-13.0); NEUTROPHILS # (AUTO) 10.7 K/uL (1.8-7.7); NEUTROPHILS % (AUTO) 78.9 % (40.0-77.0); PLATELET COUNT (AUTO) 237 K/uL (130-400); RED BLOOD CELL COUNT(AUTO) 3.37 MIL/uL (4.50-6.20); WHITE BLOOD COUNT (AUTO) 13.5 K/uL (4.8-10.8)
[2024-07-24 19:43] LABS: CREATININE 1.4 mg/dL (0.5-1.3); POTASSIUM 4.2 mmol/L (3.5-5.1)
[2024-07-24] MEDS: 0.9%NACL 1000ML 1,000 ML IV ONE (21:03)
[2024-07-24] MEDS: cefTRIAXone 1G VIAL IVPB ONE (21:03)
[2024-07-24 21:34] VITALS: BP 126/68; PULSE 78; RESP 18; TEMP 98.4; O2SAT 98
[2024-07-24] MEDS ORDERED: CIPR-278 PO (21:50)
--- NOTE | 2024-07-24 21:53 | NUR ---
CBI DISCONTINUED. PT TO BE DISCHARGED HOME WITH FAMILY CARE. SUTHERLAND BAG CHANGED TO LEG BAG. PT VOICED UNDERSTANDING OF DISCHARGE INSTRUCTIONS. NOW URINE OUTPUT IS CLEAR. PT DENIES ANY PAIN AT THIS TIME.
== END 2024-07-24 21:56 | disposition home or self-care (01) ==
LOC: EDH 16:14
DX: T83.091A Other mechanical complication of indwelling urethral catheter, initial encounter (principal); N39.0 Urinary tract infection, site not specified; R33.9 Retention of urine, unspecified; R31.0 Gross hematuria; E11.9 Type 2 diabetes mellitus without complications; E78.00 Pure hypercholesterolemia, unspecified; I10 Essential (primary) hypertension; Z79.84 Long term (current) use of oral hypoglycemic drugs; Z79.899 Other long term (current) drug therapy; Y82.8 Other medical devices associated with adverse incidents; Y92.89 Other specified places as the place of occurrence of the external cause
CPT/HCPCS: 99285; 74176; 96374; 96361; 82550; 84484; 80048; 85025; 87086 ×3; 87186 ×2; 83605; 81001; 36415; 93005; 87070; J7030; J0696

== ENCOUNTER → 2024-07-25 | Outpatient (CLI) | payer OTHER ==
[~2024-07-25] MED LIST changes: +CIPR-278 PO
== END | disposition home or self-care (01) ==
LOC: WHH 08:24
PROVIDERS: ATTEND Family Medicine
DX: L59.8 Other specified disorders of the skin and subcutaneous tissue related to radiation (principal); N30.41 Irradiation cystitis with hematuria; E78.00 Pure hypercholesterolemia, unspecified; N40.0 Benign prostatic hyperplasia without lower urinary tract symptoms; E11.22 Type 2 diabetes mellitus with diabetic chronic kidney disease; I13.0 Hypertensive heart and chronic kidney disease with heart failure and stage 1 through stage 4 chronic kidney disease, or unspecified chronic kidney disease; N18.9 Chronic kidney disease, unspecified; I50.9 Heart failure, unspecified; Z79.899 Other long term (current) drug therapy; Z85.46 Personal history of malignant neoplasm of prostate; Z85.828 Personal history of other malignant neoplasm of skin; Y84.2 Radiological procedure and radiotherapy as the cause of abnormal reaction of the patient, or of later complication, without mention of misadventure at the time of the procedure
CPT/HCPCS: 82948 ×2; G0277

== ENCOUNTER → 2024-07-26 | Outpatient (CLI) | payer OTHER | END | disposition home or self-care (01) | LOC: WHH 10:14 | PROVIDERS: ATTEND Family Medicine | DX: L59.8 Other specified disorders of the skin and subcutaneous tissue related to radiation (principal); N30.41 Irradiation cystitis with hematuria; E78.00 Pure hypercholesterolemia, unspecified; N40.0 Benign prostatic hyperplasia without lower urinary tract symptoms; E11.22 Type 2 diabetes mellitus with diabetic chronic kidney disease; I13.0 Hypertensive heart and chronic kidney disease with heart failure and stage 1 through stage 4 chronic kidney disease, or unspecified chronic kidney disease; N18.9 Chronic kidney disease, unspecified; Z79.899 Other long term (current) drug therapy; I50.9 Heart failure, unspecified; Z85.46 Personal history of malignant neoplasm of prostate; Z85.828 Personal history of other malignant neoplasm of skin; Y84.2 Radiological procedure and radiotherapy as the cause of abnormal reaction of the patient, or of later complication, without mention of misadventure at the time of the procedure | CPT/HCPCS: 82948; G0277 ==

== ENCOUNTER → 2024-07-30 | Outpatient (CLI) | payer OTHER | END | disposition home or self-care (01) | LOC: WHH 08:03 | PROVIDERS: ATTEND Family Medicine | DX: L59.8 Other specified disorders of the skin and subcutaneous tissue related to radiation (principal); N30.41 Irradiation cystitis with hematuria; Y84.2 Radiological procedure and radiotherapy as the cause of abnormal reaction of the patient, or of later complication, without mention of misadventure at the time of the procedure; E78.00 Pure hypercholesterolemia, unspecified; N40.0 Benign prostatic hyperplasia without lower urinary tract symptoms; E11.22 Type 2 diabetes mellitus with diabetic chronic kidney disease; I13.0 Hypertensive heart and chronic kidney disease with heart failure and stage 1 through stage 4 chronic kidney disease, or unspecified chronic kidney disease; N18.9 Chronic kidney disease, unspecified; I50.9 Heart failure, unspecified; Z79.899 Other long term (current) drug therapy; Z85.46 Personal history of malignant neoplasm of prostate; Z85.828 Personal history of other malignant neoplasm of skin | CPT/HCPCS: 82948; G0277 ==

== ENCOUNTER → 2024-08-01 | Outpatient (CLI) | payer OTHER | END | disposition home or self-care (01) | LOC: WHH 08:10 | PROVIDERS: ATTEND Family Medicine | DX: L59.8 Other specified disorders of the skin and subcutaneous tissue related to radiation (principal); N30.41 Irradiation cystitis with hematuria; E78.00 Pure hypercholesterolemia, unspecified; N40.0 Benign prostatic hyperplasia without lower urinary tract symptoms; E11.22 Type 2 diabetes mellitus with diabetic chronic kidney disease; I13.0 Hypertensive heart and chronic kidney disease with heart failure and stage 1 through stage 4 chronic kidney disease, or unspecified chronic kidney disease; N18.9 Chronic kidney disease, unspecified; I50.9 Heart failure, unspecified; Z79.899 Other long term (current) drug therapy; Z85.46 Personal history of malignant neoplasm of prostate; Z85.828 Personal history of other malignant neoplasm of skin; Y84.2 Radiological procedure and radiotherapy as the cause of abnormal reaction of the patient, or of later complication, without mention of misadventure at the time of the procedure | CPT/HCPCS: 82948; G0277 ==

== ENCOUNTER → 2024-08-02 | Outpatient (CLI) | payer OTHER | END | disposition home or self-care (01) | LOC: WHH 08:25 | PROVIDERS: ATTEND Family Medicine | DX: L59.8 Other specified disorders of the skin and subcutaneous tissue related to radiation (principal); N30.41 Irradiation cystitis with hematuria; E78.00 Pure hypercholesterolemia, unspecified; N40.0 Benign prostatic hyperplasia without lower urinary tract symptoms; E11.22 Type 2 diabetes mellitus with diabetic chronic kidney disease; I13.0 Hypertensive heart and chronic kidney disease with heart failure and stage 1 through stage 4 chronic kidney disease, or unspecified chronic kidney disease; N18.9 Chronic kidney disease, unspecified; I50.9 Heart failure, unspecified; Z79.899 Other long term (current) drug therapy; Z85.46 Personal history of malignant neoplasm of prostate; Z85.828 Personal history of other malignant neoplasm of skin; Y84.2 Radiological procedure and radiotherapy as the cause of abnormal reaction of the patient, or of later complication, without mention of misadventure at the time of the procedure | CPT/HCPCS: 82948; G0277 ==

== ENCOUNTER → 2024-08-03 | Outpatient (CLI) | payer OTHER | END | disposition home or self-care (01) | LOC: WHH 08:01 | PROVIDERS: ATTEND Family Medicine | DX: L59.8 Other specified disorders of the skin and subcutaneous tissue related to radiation (principal); N30.41 Irradiation cystitis with hematuria; E78.00 Pure hypercholesterolemia, unspecified; N40.0 Benign prostatic hyperplasia without lower urinary tract symptoms; E11.22 Type 2 diabetes mellitus with diabetic chronic kidney disease; I13.0 Hypertensive heart and chronic kidney disease with heart failure and stage 1 through stage 4 chronic kidney disease, or unspecified chronic kidney disease; N18.9 Chronic kidney disease, unspecified; I50.9 Heart failure, unspecified; Z79.899 Other long term (current) drug therapy; Z85.828 Personal history of other malignant neoplasm of skin; Y84.2 Radiological procedure and radiotherapy as the cause of abnormal reaction of the patient, or of later complication, without mention of misadventure at the time of the procedure | CPT/HCPCS: 82948; G0277 ==

== ENCOUNTER → 2024-08-07 | Outpatient (CLI) | payer OTHER | END | disposition home or self-care (01) | LOC: WHH 08:25 | PROVIDERS: ATTEND Family Medicine | DX: L59.8 Other specified disorders of the skin and subcutaneous tissue related to radiation (principal); N30.41 Irradiation cystitis with hematuria; E78.00 Pure hypercholesterolemia, unspecified; N40.0 Benign prostatic hyperplasia without lower urinary tract symptoms; E11.22 Type 2 diabetes mellitus with diabetic chronic kidney disease; I13.0 Hypertensive heart and chronic kidney disease with heart failure and stage 1 through stage 4 chronic kidney disease, or unspecified chronic kidney disease; N18.9 Chronic kidney disease, unspecified; I50.9 Heart failure, unspecified; Z79.899 Other long term (current) drug therapy; Z85.828 Personal history of other malignant neoplasm of skin; Y84.2 Radiological procedure and radiotherapy as the cause of abnormal reaction of the patient, or of later complication, without mention of misadventure at the time of the procedure | CPT/HCPCS: G0277 ==

== ENCOUNTER → 2024-08-08 | Outpatient (CLI) | payer OTHER | END | disposition home or self-care (01) | LOC: WHH 08:14 | PROVIDERS: ATTEND Family Medicine | DX: L59.8 Other specified disorders of the skin and subcutaneous tissue related to radiation (principal); N30.41 Irradiation cystitis with hematuria; E78.00 Pure hypercholesterolemia, unspecified; N40.0 Benign prostatic hyperplasia without lower urinary tract symptoms; E11.22 Type 2 diabetes mellitus with diabetic chronic kidney disease; I13.0 Hypertensive heart and chronic kidney disease with heart failure and stage 1 through stage 4 chronic kidney disease, or unspecified chronic kidney disease; N18.9 Chronic kidney disease, unspecified; I50.9 Heart failure, unspecified; Z79.899 Other long term (current) drug therapy; Z85.828 Personal history of other malignant neoplasm of skin; Y84.2 Radiological procedure and radiotherapy as the cause of abnormal reaction of the patient, or of later complication, without mention of misadventure at the time of the procedure | CPT/HCPCS: G0277 ==

== ENCOUNTER → 2024-08-09 | Outpatient (CLI) | payer OTHER | END | disposition home or self-care (01) | LOC: WHH 07:59 | PROVIDERS: ATTEND Family Medicine | DX: L59.8 Other specified disorders of the skin and subcutaneous tissue related to radiation (principal); N30.41 Irradiation cystitis with hematuria; E78.00 Pure hypercholesterolemia, unspecified; N40.0 Benign prostatic hyperplasia without lower urinary tract symptoms; E11.22 Type 2 diabetes mellitus with diabetic chronic kidney disease; I13.0 Hypertensive heart and chronic kidney disease with heart failure and stage 1 through stage 4 chronic kidney disease, or unspecified chronic kidney disease; N18.9 Chronic kidney disease, unspecified; I50.9 Heart failure, unspecified; Z79.899 Other long term (current) drug therapy; Z85.828 Personal history of other malignant neoplasm of skin; Y84.2 Radiological procedure and radiotherapy as the cause of abnormal reaction of the patient, or of later complication, without mention of misadventure at the time of the procedure | CPT/HCPCS: G0277 ==

== ENCOUNTER → 2024-08-10 | Outpatient (CLI) | payer OTHER | END | disposition home or self-care (01) | LOC: WHH 07:57 | PROVIDERS: ATTEND Family Medicine | DX: L59.8 Other specified disorders of the skin and subcutaneous tissue related to radiation (principal); N30.41 Irradiation cystitis with hematuria; E78.00 Pure hypercholesterolemia, unspecified; N40.0 Benign prostatic hyperplasia without lower urinary tract symptoms; E11.22 Type 2 diabetes mellitus with diabetic chronic kidney disease; I13.0 Hypertensive heart and chronic kidney disease with heart failure and stage 1 through stage 4 chronic kidney disease, or unspecified chronic kidney disease; N18.9 Chronic kidney disease, unspecified; I50.9 Heart failure, unspecified; Z79.899 Other long term (current) drug therapy; Z85.828 Personal history of other malignant neoplasm of skin; Y84.2 Radiological procedure and radiotherapy as the cause of abnormal reaction of the patient, or of later complication, without mention of misadventure at the time of the procedure | CPT/HCPCS: G0277 ==

== ENCOUNTER → 2024-08-21 | Outpatient (CLI) | payer OTHER ==
[~2024-08-21] MED LIST changes: +0.9%NACL 1000ML 1,000 ML IV ONE
== END | disposition home or self-care (01) ==
LOC: WHH 09:42
PROVIDERS: ATTEND Family Medicine
DX: L59.8 Other specified disorders of the skin and subcutaneous tissue related to radiation (principal); N30.41 Irradiation cystitis with hematuria; E78.00 Pure hypercholesterolemia, unspecified; N40.0 Benign prostatic hyperplasia without lower urinary tract symptoms; E11.22 Type 2 diabetes mellitus with diabetic chronic kidney disease; I13.0 Hypertensive heart and chronic kidney disease with heart failure and stage 1 through stage 4 chronic kidney disease, or unspecified chronic kidney disease; N18.9 Chronic kidney disease, unspecified; I50.9 Heart failure, unspecified; Z79.899 Other long term (current) drug therapy; Z85.828 Personal history of other malignant neoplasm of skin; Y84.2 Radiological procedure and radiotherapy as the cause of abnormal reaction of the patient, or of later complication, without mention of misadventure at the time of the procedure
CPT/HCPCS: G0277; J7030

== ENCOUNTER → 2024-08-27 | Outpatient (CLI) | payer OTHER ==
[~2024-08-27] MED LIST changes: -0.9%NACL 1000ML 1,000 ML IV ONE
== END | disposition home or self-care (01) ==
LOC: WHH 08:15
PROVIDERS: ATTEND Family Medicine
DX: L59.8 Other specified disorders of the skin and subcutaneous tissue related to radiation (principal); N30.41 Irradiation cystitis with hematuria; E78.00 Pure hypercholesterolemia, unspecified; N40.0 Benign prostatic hyperplasia without lower urinary tract symptoms; E11.22 Type 2 diabetes mellitus with diabetic chronic kidney disease; I13.0 Hypertensive heart and chronic kidney disease with heart failure and stage 1 through stage 4 chronic kidney disease, or unspecified chronic kidney disease; N18.9 Chronic kidney disease, unspecified; I50.9 Heart failure, unspecified; Z79.899 Other long term (current) drug therapy; Z85.828 Personal history of other malignant neoplasm of skin; Y84.2 Radiological procedure and radiotherapy as the cause of abnormal reaction of the patient, or of later complication, without mention of misadventure at the time of the procedure
CPT/HCPCS: G0277

== ENCOUNTER → 2024-08-28 | Outpatient (CLI) | payer OTHER | END | disposition home or self-care (01) | LOC: WHH 08:02 | PROVIDERS: ATTEND Family Medicine | DX: L59.8 Other specified disorders of the skin and subcutaneous tissue related to radiation (principal); N30.41 Irradiation cystitis with hematuria; E78.00 Pure hypercholesterolemia, unspecified; N40.0 Benign prostatic hyperplasia without lower urinary tract symptoms; E11.22 Type 2 diabetes mellitus with diabetic chronic kidney disease; I13.0 Hypertensive heart and chronic kidney disease with heart failure and stage 1 through stage 4 chronic kidney disease, or unspecified chronic kidney disease; N18.9 Chronic kidney disease, unspecified; I50.9 Heart failure, unspecified; Z79.899 Other long term (current) drug therapy; Z85.828 Personal history of other malignant neoplasm of skin; Y84.2 Radiological procedure and radiotherapy as the cause of abnormal reaction of the patient, or of later complication, without mention of misadventure at the time of the procedure | CPT/HCPCS: G0277 ==

== ENCOUNTER → 2024-08-30 | Outpatient (CLI) | payer OTHER | END | disposition home or self-care (01) | LOC: WHH 07:59 | PROVIDERS: ATTEND Family Medicine | DX: L59.8 Other specified disorders of the skin and subcutaneous tissue related to radiation (principal); N30.41 Irradiation cystitis with hematuria; E78.00 Pure hypercholesterolemia, unspecified; E11.22 Type 2 diabetes mellitus with diabetic chronic kidney disease; I13.0 Hypertensive heart and chronic kidney disease with heart failure and stage 1 through stage 4 chronic kidney disease, or unspecified chronic kidney disease; N18.9 Chronic kidney disease, unspecified; I50.9 Heart failure, unspecified; Z79.899 Other long term (current) drug therapy; Z85.828 Personal history of other malignant neoplasm of skin; Y84.2 Radiological procedure and radiotherapy as the cause of abnormal reaction of the patient, or of later complication, without mention of misadventure at the time of the procedure | CPT/HCPCS: G0277 ==

== ENCOUNTER → 2024-08-31 | Outpatient (CLI) | payer OTHER | END | disposition home or self-care (01) | LOC: WHH 08:07 | PROVIDERS: ATTEND Family Medicine | DX: L59.8 Other specified disorders of the skin and subcutaneous tissue related to radiation (principal); N30.41 Irradiation cystitis with hematuria; E78.00 Pure hypercholesterolemia, unspecified; N40.0 Benign prostatic hyperplasia without lower urinary tract symptoms; E11.22 Type 2 diabetes mellitus with diabetic chronic kidney disease; I13.0 Hypertensive heart and chronic kidney disease with heart failure and stage 1 through stage 4 chronic kidney disease, or unspecified chronic kidney disease; N18.9 Chronic kidney disease, unspecified; I50.9 Heart failure, unspecified; Z79.899 Other long term (current) drug therapy; Z85.828 Personal history of other malignant neoplasm of skin; Y84.2 Radiological procedure and radiotherapy as the cause of abnormal reaction of the patient, or of later complication, without mention of misadventure at the time of the procedure | CPT/HCPCS: G0277 ==

== ENCOUNTER → 2024-09-04 | Outpatient (CLI) | payer OTHER | END | disposition home or self-care (01) | LOC: WHH 08:05 | PROVIDERS: ATTEND Family Medicine | DX: L59.8 Other specified disorders of the skin and subcutaneous tissue related to radiation (principal); N30.41 Irradiation cystitis with hematuria; E11.22 Type 2 diabetes mellitus with diabetic chronic kidney disease; I13.0 Hypertensive heart and chronic kidney disease with heart failure and stage 1 through stage 4 chronic kidney disease, or unspecified chronic kidney disease; N18.9 Chronic kidney disease, unspecified; I50.9 Heart failure, unspecified; E78.00 Pure hypercholesterolemia, unspecified; N40.0 Benign prostatic hyperplasia without lower urinary tract symptoms; Y84.2 Radiological procedure and radiotherapy as the cause of abnormal reaction of the patient, or of later complication, without mention of misadventure at the time of the procedure | CPT/HCPCS: G0277 ==

== ENCOUNTER → 2024-09-05 | Outpatient (CLI) | payer OTHER | END | disposition home or self-care (01) | LOC: WHH 08:08 | PROVIDERS: ATTEND Family Medicine | DX: L59.8 Other specified disorders of the skin and subcutaneous tissue related to radiation (principal); N30.41 Irradiation cystitis with hematuria; E11.22 Type 2 diabetes mellitus with diabetic chronic kidney disease; I13.0 Hypertensive heart and chronic kidney disease with heart failure and stage 1 through stage 4 chronic kidney disease, or unspecified chronic kidney disease; N18.9 Chronic kidney disease, unspecified; I50.9 Heart failure, unspecified; E78.00 Pure hypercholesterolemia, unspecified; N40.0 Benign prostatic hyperplasia without lower urinary tract symptoms; Y84.2 Radiological procedure and radiotherapy as the cause of abnormal reaction of the patient, or of later complication, without mention of misadventure at the time of the procedure | CPT/HCPCS: G0277 ==

== ENCOUNTER → 2024-09-06 | Outpatient (CLI) | payer OTHER | END | disposition home or self-care (01) | LOC: WHH 08:15 | PROVIDERS: ATTEND Family Medicine | DX: L59.8 Other specified disorders of the skin and subcutaneous tissue related to radiation (principal); N30.41 Irradiation cystitis with hematuria; E11.22 Type 2 diabetes mellitus with diabetic chronic kidney disease; I13.0 Hypertensive heart and chronic kidney disease with heart failure and stage 1 through stage 4 chronic kidney disease, or unspecified chronic kidney disease; N18.9 Chronic kidney disease, unspecified; E78.00 Pure hypercholesterolemia, unspecified; N40.0 Benign prostatic hyperplasia without lower urinary tract symptoms; Y84.2 Radiological procedure and radiotherapy as the cause of abnormal reaction of the patient, or of later complication, without mention of misadventure at the time of the procedure | CPT/HCPCS: G0277 ==

== ENCOUNTER → 2024-09-07 | Outpatient (CLI) | payer OTHER | END | disposition home or self-care (01) | LOC: WHH 08:15 | PROVIDERS: ATTEND Family Medicine | DX: L59.8 Other specified disorders of the skin and subcutaneous tissue related to radiation (principal); N30.41 Irradiation cystitis with hematuria; E11.22 Type 2 diabetes mellitus with diabetic chronic kidney disease; I13.0 Hypertensive heart and chronic kidney disease with heart failure and stage 1 through stage 4 chronic kidney disease, or unspecified chronic kidney disease; N18.9 Chronic kidney disease, unspecified; E78.00 Pure hypercholesterolemia, unspecified; N40.0 Benign prostatic hyperplasia without lower urinary tract symptoms; Y84.2 Radiological procedure and radiotherapy as the cause of abnormal reaction of the patient, or of later complication, without mention of misadventure at the time of the procedure | CPT/HCPCS: G0277 ==

== ENCOUNTER → 2024-09-10 | Outpatient (CLI) | payer OTHER | END | disposition home or self-care (01) | LOC: WHH 08:03 | PROVIDERS: ATTEND Family Medicine | DX: L59.8 Other specified disorders of the skin and subcutaneous tissue related to radiation (principal); N30.41 Irradiation cystitis with hematuria; E78.00 Pure hypercholesterolemia, unspecified; E11.22 Type 2 diabetes mellitus with diabetic chronic kidney disease; I13.0 Hypertensive heart and chronic kidney disease with heart failure and stage 1 through stage 4 chronic kidney disease, or unspecified chronic kidney disease; N18.9 Chronic kidney disease, unspecified; I50.9 Heart failure, unspecified; Z79.899 Other long term (current) drug therapy; Z85.828 Personal history of other malignant neoplasm of skin; Y84.2 Radiological procedure and radiotherapy as the cause of abnormal reaction of the patient, or of later complication, without mention of misadventure at the time of the procedure | CPT/HCPCS: G0277 ==

== ENCOUNTER → 2024-09-11 | Outpatient (CLI) | payer OTHER | END | disposition home or self-care (01) | LOC: WHH 08:07 | PROVIDERS: ATTEND Family Medicine | DX: L59.8 Other specified disorders of the skin and subcutaneous tissue related to radiation (principal); N30.41 Irradiation cystitis with hematuria; E78.00 Pure hypercholesterolemia, unspecified; E11.22 Type 2 diabetes mellitus with diabetic chronic kidney disease; I13.0 Hypertensive heart and chronic kidney disease with heart failure and stage 1 through stage 4 chronic kidney disease, or unspecified chronic kidney disease; N18.9 Chronic kidney disease, unspecified; I50.9 Heart failure, unspecified; Z79.899 Other long term (current) drug therapy; Z85.828 Personal history of other malignant neoplasm of skin; Y84.2 Radiological procedure and radiotherapy as the cause of abnormal reaction of the patient, or of later complication, without mention of misadventure at the time of the procedure | CPT/HCPCS: G0277 ==

== ENCOUNTER → 2024-09-12 | Outpatient (CLI) | payer OTHER | END | disposition home or self-care (01) | LOC: WHH 08:01 | PROVIDERS: ATTEND Family Medicine | DX: L59.8 Other specified disorders of the skin and subcutaneous tissue related to radiation (principal); N30.41 Irradiation cystitis with hematuria; E78.00 Pure hypercholesterolemia, unspecified; E11.22 Type 2 diabetes mellitus with diabetic chronic kidney disease; I13.0 Hypertensive heart and chronic kidney disease with heart failure and stage 1 through stage 4 chronic kidney disease, or unspecified chronic kidney disease; N18.9 Chronic kidney disease, unspecified; I50.9 Heart failure, unspecified; Z79.899 Other long term (current) drug therapy; Z85.828 Personal history of other malignant neoplasm of skin; Y84.2 Radiological procedure and radiotherapy as the cause of abnormal reaction of the patient, or of later complication, without mention of misadventure at the time of the procedure | CPT/HCPCS: G0277 ==

== ENCOUNTER → 2024-09-13 | Outpatient (CLI) | payer OTHER | END | disposition home or self-care (01) | LOC: WHH 08:12 | PROVIDERS: ATTEND Family Medicine | DX: L59.8 Other specified disorders of the skin and subcutaneous tissue related to radiation (principal); N30.41 Irradiation cystitis with hematuria; E78.00 Pure hypercholesterolemia, unspecified; E11.22 Type 2 diabetes mellitus with diabetic chronic kidney disease; I13.0 Hypertensive heart and chronic kidney disease with heart failure and stage 1 through stage 4 chronic kidney disease, or unspecified chronic kidney disease; N18.9 Chronic kidney disease, unspecified; I50.9 Heart failure, unspecified; Z79.899 Other long term (current) drug therapy; Z85.828 Personal history of other malignant neoplasm of skin; Y84.2 Radiological procedure and radiotherapy as the cause of abnormal reaction of the patient, or of later complication, without mention of misadventure at the time of the procedure | CPT/HCPCS: G0277 ==

== ENCOUNTER → 2024-09-17 | Outpatient (CLI) | payer OTHER | END | disposition home or self-care (01) | LOC: WHH 08:08 | PROVIDERS: ATTEND Family Medicine | DX: L59.8 Other specified disorders of the skin and subcutaneous tissue related to radiation (principal); N30.41 Irradiation cystitis with hematuria; E78.00 Pure hypercholesterolemia, unspecified; E11.22 Type 2 diabetes mellitus with diabetic chronic kidney disease; I13.0 Hypertensive heart and chronic kidney disease with heart failure and stage 1 through stage 4 chronic kidney disease, or unspecified chronic kidney disease; N18.9 Chronic kidney disease, unspecified; I50.9 Heart failure, unspecified; Z79.899 Other long term (current) drug therapy; Z85.828 Personal history of other malignant neoplasm of skin; Y84.2 Radiological procedure and radiotherapy as the cause of abnormal reaction of the patient, or of later complication, without mention of misadventure at the time of the procedure | CPT/HCPCS: G0277 ==

== ENCOUNTER → 2024-09-18 | Outpatient (CLI) | payer OTHER | END | disposition home or self-care (01) | LOC: WHH 08:08 | PROVIDERS: ATTEND Family Medicine | DX: L59.8 Other specified disorders of the skin and subcutaneous tissue related to radiation (principal); N30.41 Irradiation cystitis with hematuria; E78.00 Pure hypercholesterolemia, unspecified; E11.22 Type 2 diabetes mellitus with diabetic chronic kidney disease; I13.0 Hypertensive heart and chronic kidney disease with heart failure and stage 1 through stage 4 chronic kidney disease, or unspecified chronic kidney disease; N18.9 Chronic kidney disease, unspecified; I50.9 Heart failure, unspecified; Z79.899 Other long term (current) drug therapy; Z85.828 Personal history of other malignant neoplasm of skin; Y84.2 Radiological procedure and radiotherapy as the cause of abnormal reaction of the patient, or of later complication, without mention of misadventure at the time of the procedure | CPT/HCPCS: G0277 ==

== ENCOUNTER → 2024-09-19 | Outpatient (CLI) | payer OTHER | END | disposition home or self-care (01) | LOC: WHH 08:02 | PROVIDERS: ATTEND Family Medicine | DX: L59.8 Other specified disorders of the skin and subcutaneous tissue related to radiation (principal); N30.41 Irradiation cystitis with hematuria; E78.00 Pure hypercholesterolemia, unspecified; E11.22 Type 2 diabetes mellitus with diabetic chronic kidney disease; I13.0 Hypertensive heart and chronic kidney disease with heart failure and stage 1 through stage 4 chronic kidney disease, or unspecified chronic kidney disease; N18.9 Chronic kidney disease, unspecified; I50.9 Heart failure, unspecified; Z79.899 Other long term (current) drug therapy; Z85.828 Personal history of other malignant neoplasm of skin; Y84.2 Radiological procedure and radiotherapy as the cause of abnormal reaction of the patient, or of later complication, without mention of misadventure at the time of the procedure | CPT/HCPCS: G0277 ==

== ENCOUNTER → 2024-09-21 | Outpatient (CLI) | payer OTHER | END | disposition home or self-care (01) | LOC: WHH 08:02 | PROVIDERS: ATTEND Family Medicine | DX: L59.8 Other specified disorders of the skin and subcutaneous tissue related to radiation (principal); N30.41 Irradiation cystitis with hematuria; E78.00 Pure hypercholesterolemia, unspecified; E11.22 Type 2 diabetes mellitus with diabetic chronic kidney disease; I13.0 Hypertensive heart and chronic kidney disease with heart failure and stage 1 through stage 4 chronic kidney disease, or unspecified chronic kidney disease; N18.9 Chronic kidney disease, unspecified; I50.9 Heart failure, unspecified; Z79.899 Other long term (current) drug therapy; Z85.828 Personal history of other malignant neoplasm of skin; Y84.2 Radiological procedure and radiotherapy as the cause of abnormal reaction of the patient, or of later complication, without mention of misadventure at the time of the procedure | CPT/HCPCS: G0277 ==

== ENCOUNTER → 2024-09-24 | Outpatient (CLI) | payer OTHER | END | disposition home or self-care (01) | LOC: WHH 08:09 | PROVIDERS: ATTEND Family Medicine | DX: L59.8 Other specified disorders of the skin and subcutaneous tissue related to radiation (principal); N30.41 Irradiation cystitis with hematuria; E78.00 Pure hypercholesterolemia, unspecified; E11.22 Type 2 diabetes mellitus with diabetic chronic kidney disease; I13.0 Hypertensive heart and chronic kidney disease with heart failure and stage 1 through stage 4 chronic kidney disease, or unspecified chronic kidney disease; N18.9 Chronic kidney disease, unspecified; I50.9 Heart failure, unspecified; Z79.899 Other long term (current) drug therapy; Z85.828 Personal history of other malignant neoplasm of skin; Y84.2 Radiological procedure and radiotherapy as the cause of abnormal reaction of the patient, or of later complication, without mention of misadventure at the time of the procedure | CPT/HCPCS: G0277 ==

== ENCOUNTER → 2024-09-25 | Outpatient (CLI) | payer OTHER | END | disposition home or self-care (01) | LOC: WHH 08:05 | PROVIDERS: ATTEND Family Medicine | DX: L59.8 Other specified disorders of the skin and subcutaneous tissue related to radiation (principal); N30.41 Irradiation cystitis with hematuria; E11.22 Type 2 diabetes mellitus with diabetic chronic kidney disease; I13.0 Hypertensive heart and chronic kidney disease with heart failure and stage 1 through stage 4 chronic kidney disease, or unspecified chronic kidney disease; N18.9 Chronic kidney disease, unspecified; I50.9 Heart failure, unspecified; E78.00 Pure hypercholesterolemia, unspecified; Z79.899 Other long term (current) drug therapy; Z85.828 Personal history of other malignant neoplasm of skin; Y84.2 Radiological procedure and radiotherapy as the cause of abnormal reaction of the patient, or of later complication, without mention of misadventure at the time of the procedure | CPT/HCPCS: G0277 ==

== ENCOUNTER → 2024-09-26 | Outpatient (CLI) | payer OTHER | END | disposition home or self-care (01) | LOC: WHH 08:06 | PROVIDERS: ATTEND Family Medicine | DX: L59.8 Other specified disorders of the skin and subcutaneous tissue related to radiation (principal); N30.41 Irradiation cystitis with hematuria; E78.00 Pure hypercholesterolemia, unspecified; E11.22 Type 2 diabetes mellitus with diabetic chronic kidney disease; I13.0 Hypertensive heart and chronic kidney disease with heart failure and stage 1 through stage 4 chronic kidney disease, or unspecified chronic kidney disease; N18.9 Chronic kidney disease, unspecified; I50.9 Heart failure, unspecified; Z79.899 Other long term (current) drug therapy; Z85.828 Personal history of other malignant neoplasm of skin; Y84.2 Radiological procedure and radiotherapy as the cause of abnormal reaction of the patient, or of later complication, without mention of misadventure at the time of the procedure | CPT/HCPCS: G0277 ==

== ENCOUNTER → 2024-09-28 | Outpatient (CLI) | payer OTHER | END | disposition home or self-care (01) | LOC: WHH 08:08 | PROVIDERS: ATTEND Family Medicine | DX: L59.8 Other specified disorders of the skin and subcutaneous tissue related to radiation (principal); N30.41 Irradiation cystitis with hematuria; E78.00 Pure hypercholesterolemia, unspecified; E11.22 Type 2 diabetes mellitus with diabetic chronic kidney disease; I13.0 Hypertensive heart and chronic kidney disease with heart failure and stage 1 through stage 4 chronic kidney disease, or unspecified chronic kidney disease; N18.9 Chronic kidney disease, unspecified; I50.9 Heart failure, unspecified; Z79.899 Other long term (current) drug therapy; Z85.828 Personal history of other malignant neoplasm of skin; Y84.2 Radiological procedure and radiotherapy as the cause of abnormal reaction of the patient, or of later complication, without mention of misadventure at the time of the procedure | CPT/HCPCS: G0277 ==